=== PATIENT | female | born 1940 | race Caucasian/White ===

== ENCOUNTER → 2020-03-18 13:50 | Outpatient (BNVA) | payer MEDICARE, MEDICAID, SELFPAY | PROVIDERS: PCP Student in an Organized Health Care Education/Training Program; Visit Provider Internal Medicine | DX: J45.991 Cough variant asthma (principal); Z79.899 Other long term (current) drug therapy | CPT/HCPCS: 99212 ==

== ENCOUNTER 2020-05-08 10:16 | Outpatient (REF) | payer MEDICARE, OTHER, SELFPAY ==
--- NOTE | 2020-05-08 10:20 | MM_ITS ---
EXAMINATION: MM SCREENING DIGITAL BREAST TOMOSYNTHESIS, BILATERAL CLINICAL INFORMATION: Screening. Asymptomatic. The lifetime risk of breast cancer based on the Tyrer-Cuzick Model is 1.1%. COMPARISON: Mammography: 10/06/2018 and studies dating back to 03/17/2012. TECHNIQUE: Digital breast tomosynthesis is performed in both the craniocaudal and mediolateral oblique views along with computer-aided detection (CAD). Synthesized 2D images are generated from the tomosynthesis. FINDINGS: The breasts are extremely dense, which lowers the sensitivity of mammography (ACR BI-RADS breast composition Category d). No new abnormal dominant mass is appreciated. There is multiplicity bilaterality of calcifications. There is a question of a new grouping of calcifications about the deep lateral aspect of the right breast for which spot magnification films are recommended. Radiology staff will contact patient to obtain this study. MM/MM tomosynthesis screening BI IMPRESSION: Right breast calcifications; further evaluation as described. ASSESSMENT: BI-RADS 0: Incomplete - Need Additional Imaging Evaluation RECOMMENDATION: 1. Additional views of the right breast. 2. Targeted ultrasound if warranted after review of the additional views. 3. Radiology department staff will contact the patient for additional imaging. This patient's information was entered into a reminder system with a target due date for their next mammogram.
== END 2020-05-08 10:17 | disposition home or self-care (01) ==
LOC: HO.MAMMO 10:16
PROVIDERS: PCP Student in an Organized Health Care Education/Training Program; Visit Provider Student in an Organized Health Care Education/Training Program
DX: Z12.31 Encounter for screening mammogram for malignant neoplasm of breast (principal)
CPT/HCPCS: 77063; 77067

== ENCOUNTER → 2020-05-22 10:04 | Outpatient (BNVA) | payer MEDICARE, MEDICAID, OTHER, SELFPAY | PROVIDERS: PCP Student in an Organized Health Care Education/Training Program; Visit Provider Internal Medicine | DX: R05 Cough (principal); J45.909 Unspecified asthma, uncomplicated | CPT/HCPCS: 99212 ==

== ENCOUNTER 2020-06-07 08:51 | Outpatient (REF) | payer MEDICARE, MEDICAID, SELFPAY ==
--- NOTE | ~2020-06-07 | MM_ITS ---
EXAMINATION: MM DIAGNOSTIC DIGITAL MAMMOGRAPHY, RIGHT CLINICAL INFORMATION: Calcifications upper outer aspect COMPARISON: Mammography: May 08, 2020 and studies dating back to April 11, 2013 TECHNIQUE: Digital mammography is performed in the following views: Spot magnification craniocaudal and 90 degree mediolateral views FINDINGS: The breasts are heterogeneously dense, which may obscure small masses (ACR BI-RADS breast composition Category c). There are a few grouped and scattered calcifications within the upper outer aspect of the right breast which are likely vascular in nature. 6 month follow-up study is recommended. Results are discussed with the patient at time of visit. MM/MM added views RT IMPRESSION: Probably benign calcifications upper outer aspect of the right breast. ASSESSMENT: BI-RADS 3: Probably Benign RECOMMENDATION: Diagnostic mammography in 6 months. This patient's information was entered into a reminder system with a target due date for their next mammogram.
== END 2020-06-07 08:52 | disposition home or self-care (01) ==
LOC: HO.MAMMO 08:51
PROVIDERS: Visit Provider Student in an Organized Health Care Education/Training Program
DX: R92.2 Inconclusive mammogram (principal)
CPT/HCPCS: 77065

== ENCOUNTER → 2020-11-11 09:38 | Outpatient (BNVA) | payer MEDICARE, MEDICAID, SELFPAY | PROVIDERS: PCP Student in an Organized Health Care Education/Training Program; Visit Provider Internal Medicine | DX: J30.9 Allergic rhinitis, unspecified (principal); J45.909 Unspecified asthma, uncomplicated; R05 Cough | CPT/HCPCS: 99212 ==

== ENCOUNTER 2020-12-05 12:25 | Outpatient (REF) | payer MEDICARE, OTHER, SELFPAY ==
--- NOTE | ~2020-12-05 | MM_ITS ---
EXAMINATION: MM DIAGNOSTIC DIGITAL BREAST TOMOSYNTHESIS, RIGHT CLINICAL INFORMATION: Short interval six-month follow-up probable benign calcifications posterior upper outer right breast. The lifetime risk of breast cancer based on the Tyrer-Cuzick Model is 2%. COMPARISON: Mammography: 06/07/2020, 05/08/2020 (BI-RADS 0), 10/06/2018, 08/06/2017 TECHNIQUE: Digital breast tomosynthesis is performed in both the craniocaudal and mediolateral oblique views along with computer-aided detection (CAD). Synthesized 2D images are generated from the tomosynthesis. Additional magnification CC and magnification ML views are obtained. FINDINGS: The breasts are heterogeneously dense, which may obscure small masses (ACR BI-RADS breast composition Category c). Parenchymal pattern is similar to prior studies. There is no developing density or interval mass or architectural abnormality. Scattered coarse and some punctate isolated calcifications are again seen central breast. Additional views upper-outer quadrant show some scattered fine punctate calcifications similar to prior diagnostic exam. Calcifications will be reassessed again at next bilateral annual mammography, due in 6 months. Results are provided to the patient at time of visit by the technologist. MM/MM tomosynthesis diagnostic RT IMPRESSION: There are no significant changes from prior diagnostic exam. ASSESSMENT: BI-RADS 3: Probably Benign RECOMMENDATION: Diagnostic mammography at time of annual bilateral exam, due in 6 months. This patient's information was entered into a reminder system with a target due date for their next mammogram.
== END 2020-12-05 12:26 | disposition home or self-care (01) ==
LOC: HO.MAMMO 12:25
PROVIDERS: PCP Student in an Organized Health Care Education/Training Program; Visit Provider Student in an Organized Health Care Education/Training Program
DX: R92.1 Mammographic calcification found on diagnostic imaging of breast (principal)
CPT/HCPCS: 77061; 77065

== ENCOUNTER → 2021-02-13 14:29 | Outpatient (BNVA) | payer MEDICARE, OTHER, SELFPAY | PROVIDERS: PCP Student in an Organized Health Care Education/Training Program; Visit Provider Internal Medicine | DX: J45.909 Unspecified asthma, uncomplicated (principal); J30.9 Allergic rhinitis, unspecified; R05.9 Cough, unspecified | CPT/HCPCS: 99212 ==

== ENCOUNTER 2021-06-11 12:10 | Outpatient (REF) | payer MEDICARE, OTHER, SELFPAY ==
--- NOTE | ~2021-06-11 | MM_ITS ---
EXAMINATION: MM DIAGNOSTIC DIGITAL BREAST TOMOSYNTHESIS, BILATERAL CLINICAL INFORMATION: Due for yearly. Also follow-up probable benign calcifications right breast. The lifetime risk of breast cancer based on the Tyrer-Cuzick Model is 2%. COMPARISON: Mammography: 12/05/2020, 06/07/2020, 05/08/2020 (BI-RADS 0), 10/06/2018, 08/06/2017, 07/03/2016. TECHNIQUE: Digital breast tomosynthesis is performed in both the craniocaudal and mediolateral oblique views along with computer-aided detection (CAD). Synthesized 2D images are generated from the tomosynthesis. Additional views are obtained: Magnification right CC, magnification right ML x2, spot left CC x2. FINDINGS: The breasts are heterogeneously dense, which may obscure small masses (ACR BI-RADS breast composition Category c). There is fibronodular parenchymal pattern similar to prior studies. There is no developing density or interval mass or architectural abnormality. The axilla and skin contours are unremarkable. Right breast calcifications for follow-up mid outer quadrant on CC view are only a few and without grouping or pleomorphic types. It may be vascular and remaining stable. There are other fine vascular calcifications again seen on CC view. No interval suspicious changes. Right breast calcifications will be reassessed again at next annual bilateral mammography in 212 months to conclude long-term surveillance. Results are provided to the patient at time of visit by the technologist. MM/MM tomosynthesis diagnostic BI IMPRESSION: No mammographic evidence of malignancy. Probable benign calcifications right breast, stable. ASSESSMENT: BI-RADS 3: Probably Benign RECOMMENDATION: Diagnostic mammography at time of next annual exam, due in 12 months. This patient's information was entered into a reminder system with a target due date for their next mammogram.
== END 2021-06-11 12:11 | disposition home or self-care (01) ==
LOC: HO.MAMMO 12:10
PROVIDERS: Visit Provider Student in an Organized Health Care Education/Training Program
DX: R92.1 Mammographic calcification found on diagnostic imaging of breast (principal)
CPT/HCPCS: 77062; 77066

== ENCOUNTER → 2021-09-18 10:33 | Outpatient (BNVA) | payer MEDICARE, OTHER, SELFPAY | PROVIDERS: PCP Student in an Organized Health Care Education/Training Program; Visit Provider Internal Medicine | DX: J45.909 Unspecified asthma, uncomplicated (principal); R05.9 Cough, unspecified | CPT/HCPCS: 99212 ==

== ENCOUNTER 2021-11-04 09:17 | Outpatient (REF) | payer MEDICARE, MEDICAID, SELFPAY ==
--- NOTE | ~2021-11-04 | XR_ITS ---
EXAMINATION: XR LUMBOSACRAL SPINE CLINICAL INFORMATION: Low back pain and left-sided sciatica COMPARISON: Previous x-ray most recent October 2016 TECHNIQUE: Three views of the lumbosacral spine. FINDINGS: There is a 5 mm anterior subluxation of L4 with respect L5. This is new or increased from 2017 exam. Bone alignment is otherwise normal. No fracture or dislocation is seen. There is multilevel degenerative spondylosis and degenerative disc disease. There is lower lumbar spine facet arthritis. There is evidence of atherosclerotic disease. XR/XR lumbar spine 2-3V IMPRESSION: 5 mm anterior subluxation of L4 with respect L5 new or increased from 2017 exam. Multilevel degenerative disc disease, spondylosis and lower lumbar spine facet arthritis.
== END 2021-11-04 09:18 | disposition home or self-care (01) ==
LOC: HO.XRAY 09:17
PROVIDERS: Absent Provider Student in an Organized Health Care Education/Training Program; PCP Student in an Organized Health Care Education/Training Program; Visit Provider Internal Medicine
DX: M54.42 Lumbago with sciatica, left side (principal)
CPT/HCPCS: 72100

== ENCOUNTER 2022-06-12 11:56 | Outpatient (REF) | payer MEDICARE, MEDICAID, SELFPAY ==
--- NOTE | ~2022-06-12 | MM_ITS ---
EXAMINATION: MM DIAGNOSTIC DIGITAL BREAST TOMOSYNTHESIS, BILATERAL CLINICAL INFORMATION: Yearly screening study of the left breast in one year follow up right breast calcifications. The lifetime risk of breast cancer based on the Tyrer-Cuzick Model is 1.7%. COMPARISON: Mammography: June 11, 2021 and studies dating back to June 28, 2015 TECHNIQUE: Digital breast tomosynthesis is performed in both the craniocaudal and mediolateral oblique views along with computer-aided detection (CAD). Synthesized 2D images are generated from the tomosynthesis. Additional spot magnification views in craniocaudal and 90 degree mediolateral views of the right breast performed. FINDINGS: The breasts are extremely dense, which lowers the sensitivity of mammography (ACR BI-RADS breast composition Category d). There are no new significant masses, abnormal calcifications, or other abnormalities. Stable calcifications are seen bilaterally. Results are provided to the patient at time of visit by the technologist. MM/MM tomosynthesis diagnostic BI IMPRESSION: There are no significant changes from prior study. ASSESSMENT: BI-RADS 2: Benign RECOMMENDATION: Routine annual mammography screening. This patient's information was entered into a reminder system with a target due date for their next mammogram.
== END 2022-06-12 11:57 | disposition home or self-care (01) ==
LOC: HO.MAMMO 11:56
PROVIDERS: Visit Provider Student in an Organized Health Care Education/Training Program
DX: R92.1 Mammographic calcification found on diagnostic imaging of breast (principal)
CPT/HCPCS: 77062; 77066

== ENCOUNTER → 2022-09-29 10:24 | Outpatient (BNVA) | payer MEDICARE, MEDICAID, SELFPAY | PROVIDERS: PCP Student in an Organized Health Care Education/Training Program; Visit Provider Internal Medicine | DX: J45.909 Unspecified asthma, uncomplicated (principal); J30.9 Allergic rhinitis, unspecified | CPT/HCPCS: 99212 ==

== ENCOUNTER 2023-01-21 08:44 | Outpatient (REF) | payer MEDICARE, MEDICAID, SELFPAY ==
[2023-01-21 15:28] LABS: Alanine Aminotransferase 14 U/L (0-31); Albumin Level 4.3 g/dL (3.5-5.0); Anion Gap 14 (12-20); Aspartate Amino Transferase 21 U/L (5-31); Bilirubin Direct 0.2 mg/dL (0.0-0.5); Bilirubin Total 0.5 mg/dL (0.0-1.0); Blood Urea Nitrogen 24 mg/dL (9-16); Calcium 9.8 mg/dL (8.4-10.2); Carbon Dioxide 27 mmol/L (22-29); Chloride 102 mmol/L (96-108); Cholesterol 187 mg/dL (<200); Estimated Glomerular Filt Rate 52; Glucose Fasting 104 mg/dL (60-99); HDL Cholesterol 44 mg/dL (>40); LDL Cholesterol Calculated 107 mg/dL (<100); Potassium 3.5 mmol/L (3.3-5.1); Sodium 139 mmol/L (135-145); Thyroid Stimulating Hormone 2.55 uIU/mL (0.32-4.0); Total Protein 8.4 g/dL (6.5-8.0); Triglycerides 184 mg/dL (<150)
[2023-01-21 15:49] LABS: Alkaline Phosphatase 99 U/L (39-117)
== END 2023-01-21 08:45 | disposition home or self-care (01) ==
LOC: HO.CHCLDS 08:44
PROVIDERS: Visit Provider Student in an Organized Health Care Education/Training Program
DX: E11.9 Type 2 diabetes mellitus without complications (principal)
CPT/HCPCS: 36415; 80048; 80061; 80076; 84443

== ENCOUNTER 2023-06-18 10:15 | Outpatient (REF) | payer MEDICARE, MEDICAID, SELFPAY | END 2023-06-18 10:16 | disposition home or self-care (01) | LOC: HO.MAMMO 10:15 | PROVIDERS: PCP Student in an Organized Health Care Education/Training Program; Visit Provider Student in an Organized Health Care Education/Training Program | DX: Z12.31 Encounter for screening mammogram for malignant neoplasm of breast (principal) | CPT/HCPCS: 77063; 77067 ==

== ENCOUNTER → 2023-06-18 10:45 | Outpatient (BNV) | payer MEDICARE, MEDICAID, SELFPAY | PROVIDERS: PCP Student in an Organized Health Care Education/Training Program; Visit Provider Radiology Diagnostic Radiology | DX: Z12.31 Encounter for screening mammogram for malignant neoplasm of breast (principal) | CPT/HCPCS: 77063; 77067 ==

== ENCOUNTER 2023-09-21 10:22 | Outpatient (AMB) | payer MEDICARE, MEDICAID, SELFPAY ==
[2023-09-21 10:27] VITALS: BP 122/64; PULSE 72; O2SAT 97; BMI 27.8
--- NOTE | 2023-09-21 10:27 | A.OFFVIS_ITS ---
Vital Signs 09/21/23 10:27 Height 5 ft 2 in Weight 152 lb 1.903 oz BMI 27.8 BP 122/64 Blood Pressure Location Lt brachial Position Sitting Pulse 72 Pulse Source Pulse Oximeter Pulse Oximetry (%) 97 Oxygen Delivery Method Room Air Intake Visit Reasons: COPD Intake Note: pt is here for follow up and states her breathing is good, no need for inhalers and she is feeling pretty good. Allergies Penicillins [PENICILLINS] Allergy (Intermediate, Verified 09/21/23 10:46) RASH Medication List - Last Reconciled 09/21/23 by David Reyes MD amlodipine 10 mg PO QAM aspirin 1 tab PO QAM blood sugar diagnostic As directed cetirizine 10 mg PO BEDTIME diclofenac sodium 1% topical flu vacc [id number](65yr up)-PF mL IM fluticasone propionate 50 mcg/actuation intranasal hydrochlorothiazide 25 mg PO DAILY icosapent ethyl (Vascepa) 2 grams PO BID lancets As directed levothyroxine 50 mcg PO DAILY montelukast 10 mg PO QPM rosuvastatin 10 mg PO BEDTIME sertraline 100 mg PO DAILY Ventolin HFA 90 mcg/actuation (albuterol sulfate) 2 puffs inhalation Q4-6H PRN NS zolpidem 5 mg PO BEDTIME Do you need a note to return to daycare/school/sports/work: No HPI HPI COPD: Details: LELA IS 83 YEARS OLD FEMALE COMING AFTER 1 YEAR FOR FOLLOW-UP. SHE HAS ALLERGIC RHINITIS WHICH IS AROUND THE YEAR BUT MOSTLY CONTROLLED AND FLARES UP WHEN THERE IS CHANGE IN THE WEATHER. SHE ALSO HAS VERY MILD INTERMITTENT BRONCHIAL ASTHMA BUT HAS HARDLY NEEDED TO USE THE ALBUTEROL DURING PAST 1 YEAR. SHE LIVES WITH HER FIANCE WHO IS 89 YEARS OLD BUT HEALTHY AND ACTIVE. SHE STILL DOES HER HOUSEWORK HERSELF. [facility] Medical History Cough Asthma Allergic rhinitis Social History Patient Tobacco Use Status: Former Tobacco user Years Smoked: 25 years, quit 41yo Review of Systems Const All systems reviewed & are unremarkable except as noted in HPI and below Eyes Reports no additional complaints ENT Reports nasal congestion and Reports nasal discharge (Much less than before) Card Denies chest pain, Denies irregular heart rhythm and Denies leg edema Resp Reports cough (Only mild and intermittent, ) and Denies wheezing GI Reports no additional complaints and Reports heartburn ( CONTROLLED WITH MED) Reports no additional complaints Musc Reports no additional complaints Skin/Breast Reports system reviewed and no additional complaints, except as documented Neuro Reports no additional complaints Psych Reports depression (CONTROLLED WITH MED) Aller/Immun Denies wheezing Physical Exam Vital Signs: Last Vital Signs Pulse 72 09/21/23 10:27 BP 122/64 09/21/23 10:27 Pulse Ox 97 09/21/23 10:27 Oxygen Delivery Method Room Air 09/21/23 10:27 BMI result Body Mass Index 27.8 Const General: comfortable, no acute distress, alert and awake Orientation/consciousness: patient oriented x3 HEENT Head: Yes normal to inspection General nose exam: No nasal polyps present and No nasal discharge present Face and sinus: Yes sinuses nontender Mouth: oropharynx normal Throat: Yes posterior oropharynx normal Eyes General: appearance normal, both eyes and all related structures Neck Neck: Yes normal visual inspection, Yes no lymphadenopathy, Yes trachea midline and Yes no JVD Thyroid: Thyroid normal Chest Chest palpation & inspection: normal inspection of the chest, normal palpation of entire chest wall and no tenderness Resp Other: PERCUSSION NOTE IS RESONANT. BREATH SOUNDS ARE EQUAL ON BOTH SIDES . NO WHEEZES OR RHONCHI ARE HEARD. Cardio Palpation: normal PMI Rate: regular rate Rhythm: regular rhythm Heart sounds: no gallops and no murmurs GI Palpation (GI): Soft to palpation, nontender, No hepatosplenomegaly present and no masses Auscultation: normal bowel sounds Back/Spine/Pelvis Thoracic/Lumbar Spine: thoracic and lumbar spine normal to inspection Skin General skin exam: no rashes or lesions noted Neuro General: patient oriented x3 and no focal motor deficits Cranial nerves: Yes CN's II-XII intact bilaterally Extrem General: Yes normal to inspection, Yes no clubbing, cyanosis or edema and Yes no calf tenderness Psych Appearance: grossly normal Speech and movement: Normal speech and movement present Assessment & Plan Assessment & Plan (1) Allergic rhinitis: Comment: CHRONIC COUGH , MAINLY SEC TO ALL RHINITIS , WELL CONTROLLED AT THIS TIME. Code(s): J30.9 - Allergic rhinitis, unspecified Category: Medical Plan: CONT. SINGLAIR 10 MG DAILY FLONASE 2 SPRAYS IN EACH NARE DAILY ONLY PRN ZYRTEC 10 MG/day but may use only prn . (2) Asthma: Comment: Cough is an ASTHMA VARIANT , AND HAS REMAINED WELL CONTROLLED. SHE HAS NOT REQUIRED TO USE THE INHALER MUCH. Code(s): J45.909 - Unspecified asthma, uncomplicated Category: Medical Plan: ALBUTEROL HFA 2 PUFFS Q 6 HOURS ONLY P.R.N. Medications: Changed From montelukast 10 mg PO QPM 30 tabs 3RF J30.9 - Allergic rhinitis, unspecified, J45.909 - Unspecified asthma, uncomplicated To montelukast 10 mg PO QPM 90 days 90 tabs 3RF ALLERGIC rHINITIS /ASTHMA J30.9 - Allergic rhinitis, unspecified, J45.909 - Unspecified asthma, uncomplicated Coding Level of Care Code Est Pt Level 3 (29935) Diagnoses Allergic rhinitis J30.9 Asthma J45.909
== END 2023-09-21 13:00 | disposition home or self-care (01) ==
PROVIDERS: PCP Student in an Organized Health Care Education/Training Program; Visit Provider Internal Medicine
DX: J30.9 Allergic rhinitis, unspecified (principal); J45.909 Unspecified asthma, uncomplicated
CPT/HCPCS: 99213

== ENCOUNTER → 2023-09-21 10:22 | Outpatient (BNVA) | payer MEDICARE, MEDICAID, SELFPAY | PROVIDERS: PCP Student in an Organized Health Care Education/Training Program; Visit Provider Internal Medicine | DX: I12.9 Hypertensive chronic kidney disease with stage 1 through stage 4 chronic kidney disease, or unspecified chronic kidney disease (principal); N18.30 Chronic kidney disease, stage 3 unspecified; J45.909 Unspecified asthma, uncomplicated | CPT/HCPCS: 99212 ==

== ENCOUNTER 2023-09-21 11:39 | Outpatient (AMB) | payer MEDICARE, MEDICAID, SELFPAY ==
[2023-09-21 11:48] VITALS: BP 124/52; PULSE 93; O2SAT 94; BMI 28.0
--- NOTE | 2023-09-21 11:48 | HO.NEPHOV_ITS ---
Vital Signs 09/21/23 11:48 Height 5 ft 2 in Weight 153 lb BMI 28.0 BP 124/52 L Blood Pressure Location Rt brachial Position Sitting Pulse 93 Pulse Source Pulse Oximeter Pulse Oximetry (%) 94 Oxygen Delivery Method Room Air Intake Visit Reasons: [facility] [place] [employer] Professor Required: No Accompanied by: Spouse Allergies Penicillins [PENICILLINS] Allergy (Intermediate, Verified 09/21/23 11:50) RASH HPI Comments Details: Margaret is a pleasant 83-year-old woman with a history of longstanding hypertension and chronic kidney disease. She is here for semiannual follow-up. From renal standpoint she has no specific complaints. No shortness of breath nausea vomiting. No urinary symptoms. She is compliant with her medications. [facility] Medical History Cough Asthma Allergic rhinitis Social History Patient Tobacco Use Status: Former Tobacco user Years Smoked: 25 years, quit 41yo Physical Exam Vital Signs: Last Vital Signs Pulse 93 09/21/23 11:48 BP 124/52 L 09/21/23 11:48 Pulse Ox 94 09/21/23 11:48 Oxygen Delivery Method Room Air 09/21/23 11:48 BMI result Body Mass Index 28.0 Awake. Comfortable. Neck is supple. Mucosa moist. Lungs bilateral scattered rhonchi. Heart S1-S2 heard no gallop. Abdomen soft. Extremities no edema. No involuntary movements. No myoclonus. Results Reviewed Nephrology Results: Sodium 139 mmol/L (135-145) 01/21/23 Potassium 3.5 mmol/L (3.3-5.1) 01/21/23 Chloride 102 mmol/L (96-108) 01/21/23 Carbon Dioxide 27 mmol/L (22-29) 01/21/23 BUN 24 mg/dL (9-16) H 01/21/23 Creatinine 1.02 mg/dL (0.5-1.4) 01/21/23 Calcium 9.8 mg/dL (8.4-10.2) 01/21/23 Assessment & Plan Assessment & Plan (1) HTN (hypertension): Code(s): I10 - Essential (primary) hypertension Category: Medical (2) CKD (chronic kidney disease): Code(s): N18.9 - Chronic kidney disease, unspecified Category: Medical Plan Mary is 83-year-old woman with a history of mild CKD in a setting of long standing hypertension. 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 Overall renal function has been stable. Last lab work was more than 6 months ago. Ordered a set of renal panel. Blood pressure well controlled therefore I am not made any changes in her medications She should stay on low-sodium diet. Continue to avoid nephrotoxic agents including NSAIDs. We will continue screen for anemia and secondary hyperparathyroidism. All questions were answered Orders: Orders Complete Blood Count Auto Diff 2 Weeks I10 - Essential (primary) hypertension, N18.30 - Chronic kidney disease, stage 3 unspecified Total Protein Urine Random 2 Weeks I10 - Essential (primary) hypertension Comprehensive Met. Panel 2 Weeks I10 - Essential (primary) hypertension, N18.9 - Chronic kidney disease, unspecified UA and rflx microscopic 2 Weeks I10 - Essential (primary) hypertension Creatinine Urine 2 Weeks I10 - Essential (primary) hypertension, N05.9 - Unspecified nephritic syndrome with unspecified morphologic changes Coding Level of Care Code Est Pt Level 4 (79986) Diagnoses HTN (hypertension) I10 CKD (chronic kidney disease) N18.9
== END 2023-09-21 12:12 | disposition home or self-care (01) ==
PROVIDERS: PCP Student in an Organized Health Care Education/Training Program; Visit Provider Internal Medicine Hypertension Specialist
DX: I12.9 Hypertensive chronic kidney disease with stage 1 through stage 4 chronic kidney disease, or unspecified chronic kidney disease (principal); N18.9 Chronic kidney disease, unspecified
CPT/HCPCS: 99214

== ENCOUNTER 2023-09-28 09:46 | Outpatient (REF) | payer MEDICARE, MEDICAID, SELFPAY ==
[2023-09-28 14:42] LABS: MANUAL DIFF FLAG NO
[2023-09-28 15:01] LABS: Basophils Absolute Auto 0.1 X10*3/uL (0.0-0.2); Basophils Percent Auto 1.1 % (0-2); Eosinophils Absolute Auto 1.1 X10*3/uL (0.0-0.4); Eosinophils Percent Auto 13.2 % (0-4); Hematocrit 36.1 % (37.0-47.0); Hemoglobin 11.7 g/dl (12.0-16.0); Imm Gran Abs Auto 0.02 X10*3/uL (0.00-0.03); Imm Gran Pct Auto 0.2 % (0.0-0.4); Lymphocytes Absolute Auto 2.3 X10*3/uL (1.2-4.9); Lymphocytes Percent Auto 27.8 % (20-40); Mean Corpuscular HGB Conc 32.4 g/dl (31.0-35.0); Mean Corpuscular Hemoglobin 30.6 pg (27.0-33.0); Mean Corpuscular Volume 94.5 fL (80.0-98.0); Mean Platelet Volume 8.5 fL (9.4-12.3); Monocytes Absolute Auto 0.7 X10*3/uL (0.1-1.2); Neutrophils Percent Auto 48.7 % (45-73); Platelet Count 205 X10*3/uL (160-400); Red Blood Count 3.82 X10*6/uL (4.20-5.50); Red Cell Distribution Width 12.8 % (11.0-16.0); White Blood Count 8.2 X10*3/uL (4.8-10.8)
[2023-09-28 15:22] LABS: Alanine Aminotransferase 16 U/L (0-31); Albumin Level 4.3 g/dL (3.5-5.0); Alkaline Phosphatase 102 U/L (39-117); Anion Gap 14 (12-20); Aspartate Amino Transferase 25 U/L (5-31); Bilirubin Direct 0.2 mg/dL (0.0-0.5); Bilirubin Total 0.4 mg/dL (0.0-1.0); Blood Urea Nitrogen 30 mg/dL (9-16); Calcium 9.6 mg/dL (8.4-10.2); Carbon Dioxide 28 mmol/L (22-29); Chloride 98 mmol/L (96-108); Cholesterol 182 mg/dL (<200); Estimated Glomerular Filt Rate 49; Glucose Random 101 mg/dL (60-115); HDL Cholesterol 45 mg/dL (>40); LDL Cholesterol Calculated 101 mg/dL (<100); Potassium 3.4 mmol/L (3.3-5.1); Sodium 137 mmol/L (135-145); Total Protein 8.3 g/dL (6.5-8.0); Triglycerides 180 mg/dL (<150)
[2023-09-28 15:32] LABS: Appearance Urine Clear; Color Urine Yellow; Glucose Urine UA Negative (Negative); Leukocyte Esterase Urine Negative (Negative); Nitrite Urine Negative (Negative); PH 7.5 (5.0-9.0); UMIC TRIGGER UA YES; Urine Blood Negative (Negative); Urine Ketones Negative (Negative); Urine Protein 30 (1+) mg/dL (Neg-Trace)
[2023-09-28 15:39] LABS: Thyroid Stimulating Hormone 2.53 uIU/mL (0.32-4.0)
[2023-09-28 15:47] LABS: Creatinine Urine 54.46 mg/dL; Total Protein Urine Random 29 mg/dL (<12)
[2023-09-28 15:58] LABS: Bacteria Urine None Seen (None Seen); Hyaline Casts Urine 0-2 /LPF (0-2); RBC Urine 0-2 /HPF (0-2); Squamous Epithelial Cell Urine 0-2 /HPF (0-2); WBC Urine 0-5 /HPF (0-5)
== END 2023-09-28 09:47 | disposition home or self-care (01) ==
LOC: HO.CHCLDS 09:46
PROVIDERS: PCP Student in an Organized Health Care Education/Training Program; Referring Provider Internal Medicine Hypertension Specialist; Visit Provider Student in an Organized Health Care Education/Training Program
DX: E03.9 Hypothyroidism, unspecified (principal); E11.22 Type 2 diabetes mellitus with diabetic chronic kidney disease; I12.9 Hypertensive chronic kidney disease with stage 1 through stage 4 chronic kidney disease, or unspecified chronic kidney disease; N18.30 Chronic kidney disease, stage 3 unspecified; N05.9 Unspecified nephritic syndrome with unspecified morphologic changes
CPT/HCPCS: 36415; 80053; 80061; 80076; 81001; 81003; 82248; 82570; 84156; 84443; 85025

== ENCOUNTER 2024-02-29 09:15 | Outpatient (AMB) | payer MEDICARE, MEDICAID, SELFPAY ==
[2024-02-29 09:19] VITALS: BP 138/64; PULSE 84; O2SAT 96; BMI 27.4
--- NOTE | 2024-02-29 09:19 | HO.NEPHOV_ITS ---
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: No Accompanied by: Spouse Allergies Penicillins [PENICILLINS] Allergy (Intermediate, Verified 09/21/23 11:50) RASH Medication List - Last Reconciled 02/29/24 by Tristian French MD amlodipine 10 mg PO QAM aspirin 1 tab PO QAM blood sugar diagnostic As directed calcium citrate-vitamin D3 125-62.5 mg-unit tabs PO cetirizine 10 mg PO BEDTIME duloxetine 20 mg PO DAILY fluticasone propionate 50 mcg/actuation intranasal hydrochlorothiazide 25 mg PO DAILY icosapent ethyl (Vascepa) 2 grams PO BID lancets As directed levothyroxine 50 mcg PO DAILY montelukast 10 mg PO QPM 90 days rosuvastatin 10 mg PO BEDTIME sertraline 100 mg PO DAILY vitamins A,C,R-yyeo-xhqylq 4,296 mcg-226 mg-90 mg (PreserVision AREDS) 1 cap PO BID zolpidem 5 mg PO BEDTIME HPI Comments Details: Margaret is a pleasant 83-year-old woman with a history of longstanding hypertension and chronic kidney disease. She is here for semiannual follow-up. From renal standpoint she has no specific complaints. No shortness of breath nausea vomiting. No urinary symptoms. She is compliant with her medications. 02/29/24 Overall doing OK Now with macular dedeneration [facility] Medical History Cough Asthma Allergic rhinitis Social History Patient Tobacco Use Status: Former Tobacco user Years Smoked: 25 years, quit 41yo Physical Exam Vital Signs: Last Vital Signs Pulse 84 02/29/24 09:19 BP 138/64 02/29/24 09:19 Pulse Ox 96 02/29/24 09:19 Oxygen Delivery Method Room Air 02/29/24 09:19 BMI result Body Mass Index 27.4 Const General: comfortable; No acute distress Orientation/consciousness: patient oriented x3 Eyes General: appearance normal, both eyes and all related structures Visual Lundy: normal visual lundy by confrontation Neck Neck: Yes supple and Yes no JVD Resp Effort & Inspection: normal respiratory effort and respiratory effort not decreased Auscultation: rhonchi Cardio Palpation: no palpable S3 and no palpable S4 Heart sounds: no rubs GI Inspection: Yes normal to inspection Palpation (GI): Soft to palpation Percussion: Yes normal to percussion Auscultation: normal bowel sounds General: Yes no CVA tenderness Back/Spine/Pelvis Back: no CVA tenderness Skin General skin exam: no petechiae and no purpura Neuro General: patient oriented x3 and no focal motor deficits Extrem General: No clubbing and No edema Results Reviewed Nephrology Results: Hgb 11.7 g/dl (12.0-16.0) L 09/28/23 WBC 8.2 X10*3/uL (4.8-10.8) 09/28/23 Plt Count 205 X10*3/uL (160-400) 09/28/23 Sodium 137 mmol/L (135-145) 09/28/23 Potassium 3.4 mmol/L (3.3-5.1) 09/28/23 Chloride 98 mmol/L (96-108) 09/28/23 Carbon Dioxide 28 mmol/L (22-29) 09/28/23 BUN 30 mg/dL (9-16) H 09/28/23 Creatinine 1.08 mg/dL (0.5-1.4) 09/28/23 Calcium 9.6 mg/dL (8.4-10.2) 09/28/23 Urine Protein 30 (1+) mg/dL (Neg-Trace) H 09/28/23 Urine Creatinine 54.46 mg/dL 09/28/23 Assessment & Plan Assessment & Plan (1) HTN (hypertension): Code(s): I10 - Essential (primary) hypertension Category: Medical (2) CKD (chronic kidney disease): Code(s): N18.9 - Chronic kidney disease, unspecified Category: Medical Plan Mary is 83-year-old woman with a history of mild CKD in a setting of longstanding hypertension. 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 Overall renal function has been stable. Ordered a set of renal panel. Blood pressure well controlled therefore I am not made any changes in her medications She should stay on low-sodium diet. Continue to avoid nephrotoxic agents including NSAIDs. We will continue screen for anemia and secondary hyperparathyroidism. All questions were answered Orders: Orders Basic Metabolic Panel 10 Days N18.9 - Chronic kidney disease, unspecified Parathyroid Hormone Related Pr 10 Days N18.9 - Chronic kidney disease, unspecified Complete Blood Count no Diff 10 Days N18.9 - Chronic kidney disease, unspecified Coding Level of Care Code Est Pt Level 4 (38726) Diagnoses HTN (hypertension) I10 CKD (chronic kidney disease) N18.9
== END 2024-02-29 09:38 | disposition home or self-care (01) ==
LOC: HO.HKA 09:15
PROVIDERS: PCP Student in an Organized Health Care Education/Training Program; Visit Provider Internal Medicine Hypertension Specialist
DX: I12.9 Hypertensive chronic kidney disease with stage 1 through stage 4 chronic kidney disease, or unspecified chronic kidney disease (principal); N18.2 Chronic kidney disease, stage 2 (mild)
CPT/HCPCS: 99214

== ENCOUNTER → 2024-02-29 09:15 | Outpatient (BNVA) | payer MEDICARE, MEDICAID, SELFPAY | PROVIDERS: PCP Student in an Organized Health Care Education/Training Program; Visit Provider Internal Medicine Hypertension Specialist | DX: I12.9 Hypertensive chronic kidney disease with stage 1 through stage 4 chronic kidney disease, or unspecified chronic kidney disease (principal); N18.9 Chronic kidney disease, unspecified | CPT/HCPCS: 99212 ==

== ENCOUNTER 2024-03-13 10:06 | Outpatient (REF) | payer MEDICARE, MEDICAID, SELFPAY ==
[2024-03-13 14:29] LABS: Estimated Average Glucose 108 mg/dL; Hemoglobin A1C 115.9474 umol/L; Hemoglobin A1c % 5.4 % (<6.0); Total Hemoglobin (HGBA1C) 3245.9527 umol/L
[2024-03-13 14:39] LABS: Alanine Aminotransferase 18 U/L (0-31); Albumin Level 4.1 g/dL (3.5-5.0); Alkaline Phosphatase 136 U/L (39-117); Anion Gap 13 (12-20); Aspartate Amino Transferase 32 U/L (5-31); Bilirubin Direct 0.1 mg/dL (0.0-0.5); Bilirubin Total 0.3 mg/dL (0.0-1.0); Blood Urea Nitrogen 23 mg/dL (9-16); Calcium 10.3 mg/dL (8.4-10.2); Carbon Dioxide 28 mmol/L (22-29); Chloride 100 mmol/L (96-108); Cholesterol 169 mg/dL (<200); Estimated Glomerular Filt Rate 48; Glucose Random 97 mg/dL (60-115); HDL Cholesterol 44 mg/dL (>40); LDL Cholesterol Calculated 91 mg/dL (<100); Potassium 3.4 mmol/L (3.3-5.1); Sodium 138 mmol/L (135-145); Triglycerides 174 mg/dL (<150)
[2024-03-13 14:56] LABS: TSH reflex Free T4 2.45 uIU/mL (0.32-4.0)
== END 2024-03-13 10:07 | disposition home or self-care (01) ==
LOC: HO.CHCLDS 10:06
PROVIDERS: Visit Provider Student in an Organized Health Care Education/Training Program
DX: E11.9 Type 2 diabetes mellitus without complications (principal); I10 Essential (primary) hypertension; E03.9 Hypothyroidism, unspecified
CPT/HCPCS: 36415; 80048; 80061; 80076; 83036; 84443

== ENCOUNTER 2024-03-15 09:24 | Outpatient (REF) | payer MEDICARE, MEDICAID, SELFPAY ==
[2024-03-15 14:33] LABS: Hematocrit 34.9 % (37.0-47.0); Hemoglobin 11.7 g/dl (12.0-16.0); Mean Corpuscular HGB Conc 33.5 g/dl (31.0-35.0); Mean Corpuscular Hemoglobin 31.9 pg (27.0-33.0); Mean Corpuscular Volume 95.1 fL (80.0-98.0); Mean Platelet Volume 8.2 fL (9.4-12.3); Platelet Count 212 X10*3/uL (160-400); Red Blood Count 3.67 X10*6/uL (4.20-5.50); Red Cell Distribution Width 12.7 % (11.0-16.0); White Blood Count 8.3 X10*3/uL (4.8-10.8)
[2024-03-15 14:48] LABS: Anion Gap 13 (12-20); Blood Urea Nitrogen 27 mg/dL (9-16); Carbon Dioxide 29 mmol/L (22-29); Chloride 100 mmol/L (96-108); Estimated Glomerular Filt Rate 49; Glucose Random 111 mg/dL (60-115); Potassium 3.7 mmol/L (3.3-5.1); Sodium 138 mmol/L (135-145)
[2024-03-21 17:48] LABS: Alk.Phos Iso. Macrohepatic 0 % (<=0); Alk.Phos Isoenzymes Bone 48 % (28-66); Alk.Phos Isoenzymes Intest 8 % (1-24); Alk.Phos Isoenzymes Liver 44 % (25-69); Alk.Phos Isoenzymes Placental 0 % (<=0); Alk.Phos Isoenzymes Total 126 U/L (37-153)
== END 2024-03-15 09:25 | disposition home or self-care (01) ==
LOC: HO.CHCLDS 09:24
PROVIDERS: PCP Student in an Organized Health Care Education/Training Program; Referring Provider Internal Medicine Hypertension Specialist; Visit Provider Student in an Organized Health Care Education/Training Program
DX: R74.8 Abnormal levels of other serum enzymes (principal); N18.9 Chronic kidney disease, unspecified
CPT/HCPCS: 36415; 80048; 84080; 85027

== ENCOUNTER 2024-05-12 13:43 | Outpatient (AMB) | payer MEDICARE, MEDICAID, SELFPAY ==
[2024-05-12 13:50] VITALS: BP 151/66; PULSE 89; BMI 27.4
--- NOTE | 2024-05-12 13:50 | MHC.OFFVIS ---
Vital Signs 05/12/24 13:50 Height 5 ft 2 in Weight 149 lb 14.629 oz BMI 27.4 BP 151/66 H Blood Pressure Location Lt brachial Position Sitting Pulse 89 Intake Visit Reasons: elevated alkaline phosphatase level Intake Note: Margaret presents in the office as a new patient for elevated LFTs. CC: She states that her daughter had colon cancer but it does not fun elsewhere in the family. Sometimes she deals with constipation but it is not a concern for her at this time. Hr Coordinator Required: No Allergies Penicillins [PENICILLINS] Allergy (Intermediate, Verified 05/12/24 13:52) RASH HPI Comments Details: 83 y.o F with PMH HTN, CKD, asthma who is referred to our office for isolated value of elevated ALP on 03/13/24. It has since then normalized. Patient here accompanied by her significant other.. Pt herself does not have any abdominal pain, nausea, vomiting, pruritus, fatigue. Initial labs were done as part of a physical. Repeat labs 2 days later showed normalization of alk-phos. However, trend reviewed and alkaline phosphatase has been mildly increasing from the range of 70s to now 120s. [facility] Medical History (Updated 05/12/24 @ 14:00 by Violet Valdez MD) Cough Asthma Allergic rhinitis Surgical History (Updated 05/12/24 @ 13:52 by RAJENDRA Scales) Hx of colonoscopy Family History (Updated 05/12/24 @ 13:53 by RAJENDRA Scales) Daughter Colon cancer Social History Patient Tobacco Use Status: Former Tobacco user Years Smoked: 25 years, quit 41yo Review of Systems Const All systems reviewed & are unremarkable except as noted in HPI and below Physical Exam Vital Signs: Last Vital Signs Pulse 89 05/12/24 13:50 BP 151/66 H 05/12/24 13:50 BMI result Body Mass Index 27.4 No apparent distress Nonicteric Abdomen soft, nondistended Alert and oriented x3, normal gait Assessment & Plan Assessment & Plan (1) Elevated alkaline phosphatase level: Code(s): R74.8 - Abnormal levels of other serum enzymes Category: Medical Plan Given the slow, gradual increase over the last 7 years, suspect could be bone related given her age and CKD. Will fractionate this. We will also get AMA and anti LKM. Plan: -if not liver related, will be discharged back to PCP's care -if hepatic alk-phos, next step will be to obtain ultrasound abdomen to rule out biliary stricture Follow-up contingent on above Orders: Orders Gamma Glutamyl Transpeptidase Today R74.8 - Abnormal levels of other serum enzymes Mitochondrial Antibody Today R74.8 - Abnormal levels of other serum enzymes Alkaline Phosphatase Isoenzyme Today R74.8 - Abnormal levels of other serum enzymes Liver Kidney Microsomal Ab Today R74.8 - Abnormal levels of other serum enzymes Liver Panel Today R74.8 - Abnormal levels of other serum enzymes Coding Level of Care Code New Pt Level 4 (81953) Diagnoses Elevated alkaline phosphatase level R74.8
== END 2024-05-12 14:41 | disposition home or self-care (01) ==
PROVIDERS: PCP Student in an Organized Health Care Education/Training Program; Visit Provider Internal Medicine
DX: R74.8 Abnormal levels of other serum enzymes (principal)
CPT/HCPCS: 99204

== ENCOUNTER 2024-05-12 14:26 | Outpatient (REF) | payer MEDICARE, MEDICAID, SELFPAY ==
[2024-05-12 17:49] LABS: Alanine Aminotransferase 16 U/L (0-31); Albumin Level 4.2 g/dL (3.5-5.0); Aspartate Amino Transferase 27 U/L (5-31); Bilirubin Direct 0.1 mg/dL (0.0-0.5); Bilirubin Total 0.3 mg/dL (0.0-1.0); Gamma Glutamyl Transpeptidase 29 U/L (7-33); Total Protein 8.3 g/dL (6.5-8.0)
[2024-05-12 18:08] LABS: Alkaline Phosphatase 105 U/L (39-117)
[2024-05-16 09:07] LABS: Mitochondrial Antibodies NEGATIVE (NEGATIVE)
[2024-05-17 14:53] LABS: Liver Kidney Microsomal Ab <=20.0 U (<=20.0)
[2024-05-19 11:59] LABS: Alk.Phos Iso. Macrohepatic 0 % (<=0); Alk.Phos Isoenzymes Bone 35 % (28-66); Alk.Phos Isoenzymes Intest 6 % (1-24); Alk.Phos Isoenzymes Liver 59 % (25-69); Alk.Phos Isoenzymes Placental 0 % (<=0); Alk.Phos Isoenzymes Total 97 U/L (37-153)
== END 2024-05-12 14:27 | disposition home or self-care (01) ==
LOC: HO.CHCLDS 14:26
PROVIDERS: Visit Provider Internal Medicine
DX: R74.8 Abnormal levels of other serum enzymes (principal); I12.9 Hypertensive chronic kidney disease with stage 1 through stage 4 chronic kidney disease, or unspecified chronic kidney disease; N18.9 Chronic kidney disease, unspecified
CPT/HCPCS: 36415; 80076; 82977; 84080; 86376; 86381; 99202

== ENCOUNTER 2024-06-23 11:27 | Outpatient (REF) | payer MEDICARE, MEDICAID, SELFPAY ==
--- OUTSIDE RECORDS SUMMARY | 2024-06-23 12:34 | XMS_ITS | Encounter Summary ---
Author Organization [employer] Address [address] [facility] 7t [place] [address] Care Team Providers Care Admissions Nurse Name Role Phone Dedra Arzola MD Primary Care Provider [phone] Reason for Visit * Reason Onset Date Comments Med Refill 06/02/2023 Encounter Details Date Type Department Care Team ([facility] Contact Info) Description 06/02/2023 Telephone [facility] CHC MED & PEDS [address] [place], [place] [phone] Dedra Arzola MD [address] [place] [address] Med Refill Social History Tobacco Use Types Packs/Day Years Used Date Smoking Tobacco: Never Passive Smoke Exposure: Never Smokeless Tobacco: Never Alcohol Use Standard Drinks/Week Comments Never 0 (1 standard drink = 0.6 oz pur e alcohol) Depression Answer Date Recorded Patient Health Questionnaire-9 Score 4 01/20/2023 Housing Stability Answer Date Recorded What is your housing situation today? I have hugo lucas 03/08/[address] you li ve. Do you have problems with any of the following? None of the above 03/08/2023 Food Insecurity Answer Date Recorded Within the past 12 months, y ou worried that your food would run out before you got money to buy more: Never True 03/08/2023 Within the past 12 months,th e food you bought just didn't last and you didn't have enough money to get more: Never True 10/2022 Transportation Answer Date Recorded In the past 12 months, has l ack of transportation kept you from medical appts, meetings, work or from getting things needed for daily living? No 03/08/2023 Utilities Answer Date Recorded In the past 12 months, has t he electric, gas, oil or water company threatened to shut off services in your home? No 03/08/2023 Depression Answer Date Recorded Patient Health Questionnaire-2 Score 2 01/20/2023 Comments Unknown Sex and Gender Information Value Date Recorded Sex Assigned at Female 03/02/2022 10:17 AM EDT Legal Sex Female 10:17 AM EDT Gender Identity Female 03/02/2022 10:17 AM EDT Sexual Orientation Straight 03/02/2022 10 :17 AM EDT documented as of this encounter Miscellaneous Notes * Telephone Encounter - Kely Townsend LPN - 06/02/2023 3:26 PM EST Medication pended to PCP. * Telephone Encounter - Porsha Bhagat - 06/02/2023 11:16 AM EST TC from pt requesting medication refill. Medications needing refill : zolpidem (Ambien) 5 MG tablet To be sent to: [facility] - [place], [place] - [facility] [address] documented in this encounter Plan of Treatment Not on file documented as of this encounter Visit Diagnoses Not on filedocumented in this encounter Additional Health Concerns Assessment Noted Time PHQ-9 Depression Total Score: 4 01/21/20 23 10:06 AM EDT documented as of this encounter Care Teams Admissions Nurse Relationship Specialty Start Date End Date Dedar Arzola MD [address] [place] [address] PCP - General Family Medicine 04/06/12 documented as of this encounter
--- OUTSIDE RECORDS SUMMARY | 2024-06-23 12:34 | XMS_ITS | Encounter Summary ---
Author Organization [employer] Address [address] [facility] [address] [place] [address] Care Team Providers Care Educational Consultant Name Role Phone Dedra Arzola MD Primary Care Provider [phone] Encounter Details Date Type Department Care Team (Latest Contact Info) Description 05/26/2024 Travel Social History Tobacco Use Types Packs/Day Years Used Date Smoking Tobacco: Never Passive Smoke Exposure: Never Smokeless Tobacco: Never Alcohol Use Standard Drinks/Week Comments Never 0 (1 standard drink = 0.6 oz pur e alcohol) Alcohol Answer Date Recorded Frequency of Alcohol Consumption Not on file 03/13/2024 Average Number of Drinks Not on file 024 Frequency of Binge Drinking Not on file 03/03 Score 0 03/13/2024 Depression Answer Date Recorded Patient Health Questionnaire-9 Score 4 01/20/2023 Housing Stability Answer Date Recorded What is your housing situation today? I have hugo lucas 03/13/[address] you li ve. Do you have problems with any of the following? None of the above 03/13/2024 Food Insecurity Answer Date Recorded Within the past 12 months, y ou worried that your food would run out before you got money to buy more: Never True 03/13/2024 Within the past 12 months,th e food you bought just didn't last and you didn't have enough money to get more: Never True 03/2024 Transportation Answer Date Recorded In the past 12 months, has l ack of transportation kept you from medical appts, meetings, work or from getting things needed for daily living? No 03/13/2024 Utilities Answer Date Recorded In the past 12 months, has t he electric, gas, oil or water company threatened to shut off services in your home? No 03/13/2024 Depression Answer Date Recorded Patient Health Questionnaire-2 Score 2 01/20/2023 Internet Access Answer Date Recorded Internet Access Q1 No 03/13/2024 Internet Access Q2 I do not want or need it 03/03 Comments No Sex and Gender Information Value Date Recorded Sex Assigned at Female 03/02/2022 10:17 AM EDT Legal Sex Female 10:17 AM EDT Gender Identity Female 03/02/2022 10:17 AM EDT Sexual Orientation Straight 03/02/2022 10 :17 AM EDT documented as of this encounter Plan of Treatment Not on file documented as of this encounter Visit Diagnoses Not on filedocumented in this encounter Additional Health Concerns Assessment Noted Time PHQ-9 Depression Total Score: 4 01/21/20 23 10:06 AM EDT documented as of this encounter Care Teams Educational Consultant Relationship Specialty Start Date End Date Dedra Arzola MD [address] [place] [id number] PCP - General Family Medicine 04/06/12 documented as of this encounter
--- OUTSIDE RECORDS SUMMARY | 2024-06-23 12:34 | XMS_ITS | Encounter Summary ---
Author Organization [employer] Address [address] [facility] 7t [place] [address] Care Team Providers Care Adhesion Tester Name Role Phone Dedra Arzola MD Primary Care Provider [phone] Reason for Visit * Reason Comments Med Refill Encounter Details Date Type Department Care Team ([facility] st Contact Info) Description 05/27/2024 Refill [facility] CHC MED & PEDS [address] [place] [address] Dedra Arzola MD [address] [place] [address] Allergy, sequela Social History Tobacco Use Types Packs/Day Years [...] documented as of this encounter Visit Diagnoses Diagnosis Allergy, sequela documented in this encounter Additional Health Concerns Assessment Noted Time PHQ-9 Depression Total Score: 4 01/21/20 23 10:06 AM EDT documented as of this encounter Care Teams Adhesion Tester Relationship Specialty Start Date End Date Dedra Arzola MD [address] [place] [id number] PCP - General Family Medicine 04/06/12 documented as of this encounter
--- OUTSIDE RECORDS SUMMARY | 2024-06-23 12:34 | XMS_ITS | Encounter Summary ---
Author Organization [employer] Address [address] [facility] 7t [place] [address] Care Team Providers Care Care Program Resident Name Role Phone Dedra Arzola MD Primary Care Provider [phone] Encounter Details Date Type Department Care Team (Late st Contact Info) Description 11/12/[address] [facility] MEDICINE [address] [place], [place] [phone] Tricia Shoemaker LPN Social History Tobacco Use Types Packs/Day Years Used Date Smoking Tobacco: Never Passive Smoke Exposure: Never Smokeless Tobacco: Never Alcohol Use Standard Drinks/Week Comments Never 0 (1 standard drink = 0.6 oz pur e alcohol) Comments Unknown Sex and Gender Information Value Date Recorded Sex Assigned at Female 03/02/2022 10:17 AM EDT Legal Sex Female 10:17 AM EDT Gender Identity Female 03/02/2022 10:17 AM EDT Sexual Orientation Straight 03/02/2022 10 :17 AM EDT documented as of this encounter Plan of Treatment Not on file documented as of this encounter Visit Diagnoses Not on filedocumented in this encounter Care Teams Care Program Resident Relationship Specialty Start Date End Date Dedra Arzola MD [address] [place] [address] PCP - General Family Medicine 04/06/12 documented as of this encounter
--- OUTSIDE RECORDS SUMMARY | 2024-06-23 12:34 | XMS_ITS | Encounter Summary ---
Author Organization [employer] Address 75 [facility] 7t [place] [address] Care Team Providers Care Verification Clerk Name Role Phone Dedra Arzola MD Primary Care Provider [phone] Reason for Visit * Reason Comments Med Refill Encounter Details Date Type Department Care Team (Late st Contact Info) Description 06/20/2024 Refill [facility] CHC MED & PEDS [address] [place], [place] [phone] Dedra Arzola MD [address] [place] [address] Primary hypertension; Insomnia, unspecified type Social History Tobacco Use Types Packs/Day Years [...] as of this encounter Visit Diagnoses Diagnosis Primary hypertension Unspecified essential hypertension Insomnia, unspecified type documented in this encounter Additional Health Concerns Assessment Noted Time PHQ-9 Depression Total Score: 4 01/21/20 23 10:06 AM EDT documented as of this encounter Care Teams Verification Clerk Relationship Specialty Start Date End Date Dedra Arzola MD [address] [place] [address] PCP - General Family Medicine 04/06/12 documented as of this encounter
--- OUTSIDE RECORDS SUMMARY | 2024-06-23 12:34 | XMS_ITS | Encounter Summary ---
Author Organization [employer] Address [address] [facility] 7t [place] [address] Care Team Providers Care Cobbler Mckay Name Role Phone Dedra Arzola MD Primary Care Provider [phone] Encounter Details Date Type Department Care Team (Latest Contact Info) Description 05/19/2019 Abstract [facility] CONVERSIONS Dental, Provider, DDS Social History Tobacco Use Types Packs/Day Years Used Date Smoking Tobacco: Never Assessed Comments Unknown Sex and Gender Information Value [...] on filedocumented in this encounter Care Teams Cobbler Mckay Relationship Specialty Start Date End Date Dedra Arzola MD [address] [place] [id number] PCP - General Family Medicine 04/06/12 documented as of this encounter
--- OUTSIDE RECORDS SUMMARY | 2024-06-23 12:34 | XMS_ITS | Encounter Summary ---
Author Organization [employer] Address [address] [facility] 7t [place] [address] Care Team Providers Care Supervisor Finishing Name Role Phone Dedra Arzola MD Primary Care Provider [phone] Reason for Visit * Reason Comments Med Refill Encounter Details Date Type Department Care Team ([facility] st Contact Info) Description 05/29/2024 Refill [facility] CHC MED & PEDS [address] [place], [place] [phone] Dedra Arzola MD [address] [place] [address] Hypothyroidism, unspecified type Social History Tobacco Use Types [...] as of this encounter Visit Diagnoses Diagnosis Hypothyroidism, unspecified type documented in this encounter Additional Health Concerns Assessment Noted Time PHQ-9 Depression Total Score: 4 01/21/20 23 10:06 AM EDT documented as of this encounter Care Teams Supervisor Finishing Relationship Specialty Start Date End Date Dedra Arzola MD [address] [place] [phone] PCP - General Family Medicine 04/06/12 documented as of this encounter
--- OUTSIDE RECORDS SUMMARY | 2024-06-23 12:34 | XMS_ITS | Encounter Summary ---
Author Organization [employer] Address [address] [facility] [address] 7[address] [place] [address] Care Team Providers Care Air Conditioning Unit Tester Name Role Phone Dedra Arzola MD Primary Care Provider [phone] Encounter Details Date Type Department Care Team ([facility] st Contact Info) Description 02/12/2023 Orders Only [facility] CHC MED & PEDS [address] [place] [address] Dedra Arzola MD [address] [place] [address] Social History Tobacco Use Types Packs/Day Years Used Date Smoking Tobacco: Never Passive Smoke Exposure: Never Smokeless Tobacco: Never Alcohol Use Standard Drinks/Week Comments Never 0 (1 standard drink = 0.6 oz pur e alcohol) Depression Answer Date Recorded Patient Health Questionnaire-9 Score 4 01/20/2023 Housing Stability Answer Date Recorded What is your housing situation today? I have hugo lucas 02/08/[address] you li ve. Do you have problems with any of the following? None of the above 02/08/2023 Food Insecurity Answer Date Recorded Within the past 12 months, y ou worried that your food would run out before you got money to buy more: Never True 02/08/2023 Within the past 12 months,th e food you bought just didn't last and you didn't have enough money to get more: Never True 01/2023 Transportation Answer Date Recorded In the past 12 months, has l ack of transportation kept you from medical appts, meetings, work or from getting things needed for daily living? No 02/08/2023 Utilities Answer Date Recorded In the past 12 months, has t he [employer], gas, oil or water company threatened to shut off services in your home? No 02/08/2023 Depression Answer Date Recorded Patient Health Questionnaire-2 [...] documented as of this encounter Care Teams Air Conditioning Unit Tester Relationship Specialty Start Date End Date Dedra Arzola MD [address] [place] [phone] PCP - General Family Medicine 04/06/12 documented as of this encounter
--- OUTSIDE RECORDS SUMMARY | 2024-06-23 12:35 | XMS_ITS | Encounter Summary ---
Author Organization [employer] Address [address] [facility] 7t [place] [address] Care Team Providers Care Sales Data Analyst Name Role Phone Dedra Arzola MD Primary Care Provider [phone] Encounter Details Date Type Department Care Team (Latest Contact Info) Description 09/12/2021 Abstract [facility] CONVERSIONS Dental, Provider, DDS Social History Tobacco [...] on filedocumented in this encounter Care Teams Sales Data Analyst Relationship Specialty Start Date End Date Dedra Arzola MD [address] [place] [address] PCP - General Family Medicine 04/06/12 documented as of this encounter
--- OUTSIDE RECORDS SUMMARY | 2024-06-23 12:35 | XMS_ITS | Encounter Summary ---
Author Organization [employer] Address [address] [facility] 7t [place] [address] Care Team Providers Care Ship Scaler Name Role Phone Dedra Arzola MD Primary Care Provider [phone] Encounter Details Date Type Department Care Team (Latest Contact Info) Description 05/13/2018 Abstract [facility] CONVERSIONS Dental, Provider, DDS Social History Tobacco [...] on filedocumented in this encounter Care Teams Ship Scaler Relationship Specialty Start Date End Date Dedra Arzola MD [address] [place] [phone] PCP - General Family Medicine 04/06/12 documented as of this encounter
--- OUTSIDE RECORDS SUMMARY | 2024-06-23 12:35 | XMS_ITS | Encounter Summary ---
Author Organization [facility] Address [address] [place] [address] Phone Care Team Providers Care Journeyman Level Acoustic Analyst Name Role Phone Dedra Arzola MD Primary Care Provider [phone] Encounter Details Date Type Department Care Team (Late st Contact Info) Description 09/10/2020 Orders Only [facility] [address] [place] [address] ProviderTony MD [address] [place] [address] Social History Tobacco Use Types Packs/Day Years Used Date Smoking Tobacco: Former Cigarettes Q uit: 05/03/1998 Alcohol Use Standard Drinks/Week Comments Yes 0 (1 standard drink = 0.6 oz pure alcohol) Alcoholic Drinks/day: Occasional social drink Comments Unknown Sex and Gender Information Value Date Recorded Sex Assigned at Not on file Legal Sex Female 5:05 PM EST Gender Identity Not on file Sexual Orientation Not on file COVID-19 Exposure Response Date Recorded In the last month, have you been in contact with someone who was confirmed or suspected to have Coronavirus / COVID-19? No / Unsure 09/11/2020 1:31 PM EDT documented as of this encounter Plan of Treatment Not on file documented as of this encounter Procedures Procedure Name Priority Date/Time Associated Diagnosis Comments EXT RESULT ENTRY Routine 07/31/2020 documented in this encounter Results * EXT RESULT ENTRY (07/31/2020) Historical Provider LAB BLOOD ORDERABLES Cordelia l Result documented in this encounter Visit Diagnoses Not on filedocumented in this encounter Care Teams Journeyman Level Acoustic Analyst Relationship Specialty Start Date End Date Dedra Arzola MD [address] [place] [phone] PCP - General 05/13/20 documented as of this encounter
--- OUTSIDE RECORDS SUMMARY | 2024-06-23 12:35 | XMS_ITS | Encounter Summary ---
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 Linnette Espinal, OD [address] [place] [address] Phone: tel: fax: Linnette Calderon, OD [address] [place] [address] Phone: tel: fax: Referral ID Status Reason Start Date Expiration Date Visits Requested Visits Authorized [id number] Authorized Specialty Services Required 06/05/2024 06/05/2025 1 1 Encounter Details Date Type Department Care Team (Latest Contact Info) Description 05/26/2024 11:15 AM EST Office Visit [facility] [address] [place] [address] Linnette Espinal, OD [address] [place] [address] 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 female. HPI T2DM exam. Last A1c 5.4% on 03/13/24. Patient reports she is legally blind but is unsure what caused it. Patient was previously followed by [facility]. Patient stopped going after being told she was blind and could no longer drive. Patient states she has had one ocular injection in the past. Patient takes AREDS BID PO - per recommendation of specialist. ELROY: 2-3 years ago Last edited by Linnette Espinal OD on 06/05/2024 10:05 AM. Current Outpatient Medications Medication Sig Dispense Refill acetaminophen (Tylenol) 500 MG tablet Take 2 tablets by mouth every 4 (four) hours. amLODIPine (Norvasc) 10 MG tablet take ONE tablet BY MOUTH EVERY MORNING 90 tablet 1 Aspirin Low Dose 81 MG chewable tablet CHEW ONE TABLET EVERY MORNING 60 tablet 4 betamethasone dipropionate 0.05 % cream Apply 1 application topically every 12 (twelve) hours. Dgkczcr-Hpetfbcdpc-Bjuekal D (Citracal +D3) 250-107-500 MG-MG-UNIT chewable tablet cetirizine (ZyrTEC) 10 MG tablet TAKE ONE TABLET EVERY NIGHT AT BEDTIME 30 tablet 11 cloNIDine (Catapres) 0.1 MG tablet TAKE ONE TABLET EVERY MORNING 30 tablet 3 DULoxetine (Cymbalta) [address] capsule Take 1 capsule (40 mg) by mouth Once per day. Do not crush or chew. 30 capsule 11 fluticasone (Flonase) 50 MCG/ACT nasal spray INHALE 2 SPRAYS IN EACH NOSTRIL ONCE DAILY IN THE MORNING 16 g 0 FREESTYLE LITE test strip USE ONE TO TEST BLOOD SUGAR EVERY DAY 50 strip 11 glucose blood (FREESTYLE LITE) test strip USE 1 STRIP by DIRECTED route every day hydroCHLOROthiazide (HYDRODiuril) 25 MG tablet TAKE ONE TABLET EVERY MORNING 90 tablet 1 Icosapent Ethyl (Vascepa) 1 g capsule TAKE TWO CAPSULES TWICE DAILY IN THE MORNING AND EVENING WITHFOOD 360 capsule 0 levothyroxine (Synthroid, Levoxyl) 50 MCG tablet TAKE ONE TABLET EVERY MORNING 30 tablet 1 Lidocaine 4 % patch use 1 patch every 12 hrs Multiple Vitamins-Minerals (PreserVision AREDS 2) capsule rosuvastatin (Crestor) 10 MG tablet TAKE ONE TABLET EVERY NIGHT AT BEDTIME 90 tablet 1 sertraline (Zoloft) 100 MG tablet TAKE ONE TABLET EVERY MORNING 90 tablet 4 traMADol (Ultram) 50 MG tablet Take 1 tablet by mouth every 12 (twelve) hours. TRUEplus Lancets 33G misc USE ONE EVERY DAY 100 each 11 zolpidem (Ambien) 5 MG tablet TAKE ONE TABLET EVERY NIGHT AT BEDTIME NEEDED FOR SLEEP 30 tablet 0 No current facility-administered medications for this visit. Past Medical History: Diagnosis Date Diabetes mellitus (CMS/HCC) Disease of thyroid gland Hypertension Periodontal disease Past Surgical History: Procedure Laterality Date CATARACT EXTRACTION, BILATERAL PROSTHODONTIC PROCEDURE WISDOM TOOTH EXTRACTION No family history on file. Tobacco Use: Low Risk (05/26/2024) Tobacco Smoking Tobacco Use: Never Smokeless Tobacco Use: Never Passive Exposure: Never Allergies Allergen Reactions Gabapentin Dizziness Hyoscyamine Other reaction(s): unspecified Statins Hives Sulfa Antibiotics Penicillins Rash ROS Positive for: Endocrine, Eyes Negative for: Constitutional, Gastrointestinal, Neurological, Skin, Genitourinary, Musculoskeletal,HENT, Cardiovascular, Respiratory, Psychiatric, Allergic/Imm, Heme/Lymph Last edited by Linnette Espinal, ELÍAS on 05/26/2024 11:18 AM. Base Eye Exam Visual Acuity (Snellen - Linear) Right Left Both Dist cc 20/200 CF @ 4ft Dist ph cc 20/400 Near cc 20/100 Tonometry (iCare , 4:05 pm) Right Left Pressure 11 11 Pupils Pupils APD Right PERRL None Left PERRL None Visual Lundy (Counting fingers) Left Right Full Full Extraocular Movement Right Left Full Full Neuro/Psych Oriented x3: Yes Dilation Both eyes: 1.0% tropicamide @ 04:05 PM Slit Lamp and Fundus Exam External Exam Right Left External Normal Normal Slit Lamp Exam Right Left Lids/Lashes Clean and clear Clean and clear Conjunctiva/Sclera White and quiet White and quiet Cornea Clear Clear Anterior Chamber Deep and quiet, angles open gr 4 Deep and quiet, angles open gr 4 Iris Round and reactive, (-) NVI Round and reactive, (-) NVI Lens PC-IOL PC-IOL Fundus Exam Right Left Vitreous Clear Clear Disc [place] and healthy, PPA (-) NVD [place] and healthy, PPA, (-) NVD C/D Ratio Vertical 0.15 0.15 C/D Ratio Horizontal 0.15 0.15 Macula RPE mottling, small hard drusen, (-) CME Large areas of geographic atrophy, (-) CME Vessels Normal course and caliber, (-) NVE Normal course and caliber, (-) NVE Periphery No holes/tears/detachments 360 No holes/tears/detachments 360 Assessment and Plan Diagnoses and all orders for this visit: 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 Patient was previously followed by [facility] but stopped going 2-3 years ago after being told she was legally blind. - Some macular drusen & RPE migration right eye (OD) however structural appearance does not correspond to severe reduction in BCVA. Poor vision left eye (OS) explained by subfoveal geographic atrophy. - Records release request sent to [facility] today - Did not dispense spec Rx today. Recommended low vision evaluation, at which time refraction will be performed. Patient is interested in low vision appt. Referral placed today - Continue AREDS 2 BID PO Orders: - OCT, Retina - OU - Both Eyes - Referral to Optometry, Internal; Future 2. Type 2 diabetes mellitus without ophthalmic manifestations (CMS/HCC) - No diabetic retinopathy or diabetic macular edema both eyes (OU) - Discussed importance of tight blood glucose control, medication compliance and regular follow up with PCP RTC 4 months for age-related macular degeneration (ARMD) both eyes (OU) f/u. 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 documented in this encounter Results * OCT, Retina - OU - Both Eyes (05/26/2024 11:15 AM EST) Linnette Parish, OD - 06/05/2024 10:52 AM EST OCT [facility]ULA INTERPRETATION Optical Coherence Tomography Interpretation Report Reliability: OD: 64, good quality OCT scan OS: 56, good quality OCT scan Measurements: Central subfoveal thickness OD: ??197 microns OS: ??51 microns Test findings: OD: Normal foveal contour, all layers intact, no IRF/SRF; small hyper-reflective subfoveal lesion, (+) tr ERM OS: Exaggerated foveal contour due to complete subfoveal outer retinal atrophy, SIRE lesions superior temporal to fovea, no IRF/SRF Impression and Plan: Age related macular degeneration both eyes (OU). Request previous records. Refer to [facility]. Monitor in 4 months. 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
--- OUTSIDE RECORDS SUMMARY | 2024-06-23 12:35 | XMS_ITS | Encounter Summary ---
Author Organization [employer] Address [address] [facility] [address] [place] [address] Care Team Providers Care Manager Safe Name Role Phone Dedra Arzola MD Primary Care Provider [phone] Encounter Details Date Type Department Care Team ([facility] st Contact Info) Description 08/06/2022 Orders Only [facility] MED & PEDS [address] [place], [place] [phone] Dedra Arzola MD [address] [place], [place] [phone] Social History Tobacco Use Types Packs/Day Years [...] Orientation Straight 03/02/2022 10 :17 AM EDT COVID-19 Exposure Response Date Recorded In the last 10 days, have yo u been in contact with someone who was confirmed or suspected to have Coronavirus/COVID-19? No / Unsure 08/05/2022 8:59 AM EDT documented as of this encounter Plan of Treatment Not on file documented as of this encounter Visit Diagnoses Not on filedocumented in this encounter Care Teams Manager Safe Relationship Specialty Start Date End Date Derda Arzola MD [address] [place] [phone] PCP - General Family Medicine 04/06/12 documented as of this encounter
--- OUTSIDE RECORDS SUMMARY | 2024-06-23 12:35 | XMS_ITS | Encounter Summary ---
Author Organization [employer] Address [address] [facility] [address] [place] [address] Care Team Providers Care Wig Dresser Name Role Phone Dedra Arzola MD Primary Care Provider [phone] Encounter Details Date Type Department Care Team ([facility] st Contact Info) Description 09/09/2023 Orders Only [facility] CHC MED & PEDS [address] [place] [address] Dedra Arzola MD [address] [place], [place] [phone] Social History Tobacco Use Types Packs/Day Years [...] the past 12 months, has t he [employer], gas, oil or water company threatened to [...] documented as of this encounter Care Teams Wig Dresser Relationship Specialty Start Date End Date Dedra Arzola MD [address] [place] [phone] PCP - General Family Medicine 04/06/12 documented as of this encounter
--- OUTSIDE RECORDS SUMMARY | 2024-06-23 12:35 | XMS_ITS | Encounter Summary ---
Author Organization [employer] Address [address] [facility] [address] [place] [address] Care Team Providers Care Dry Charge Process Attendant Name Role Phone Dedra Arzola MD Primary Care Provider [phone] Reason for Visit * Reason Comments Med Refill Encounter Details Date Type Department Care Team ([facility] st Contact Info) Description 01/09/2023 Refill C [facility] MED [facility] PEDS [address] [place], [place] [phone] Hernando Patel MD [address] [place], [place] [phone] Primary hypertension Social History Tobacco Use Types Packs/Day Years [...] Diagnoses Diagnosis Primary hypertension Unspecified essential hypertension documented in this encounter Care Teams Dry Charge Process Attendant Relationship Specialty Start Date End Date Dedra Arzola MD [address] [place] [address] PCP - General Family Medicine 04/06/12 documented as of this encounter
--- OUTSIDE RECORDS SUMMARY | 2024-06-23 12:35 | XMS_ITS | Encounter Summary ---
Author Organization [employer] Address [address] [facility] [address] [place] [address] Care Team Providers Care Hand Decorator Name Role Phone Dedra Arzola MD Primary Care Provider [phone] Reason for Visit * Reason Comments Med Refill Encounter Details Date Type Department Care Team ([facility] st Contact Info) Description 05/23/2024 Refill [facility] CHC MED & PEDS [address] [place], [place] [phone] Dedra Arzola MD [address] [place] [address] Insomnia, unspecified type Social History Tobacco Use [...] as of this encounter Visit Diagnoses Diagnosis Insomnia, unspecified type documented in this encounter Additional Health Concerns Assessment Noted Time PHQ-9 Depression Total Score: 4 01/21/20 23 10:06 AM EDT documented as of this encounter Care Teams Hand Decorator Relationship Specialty Start Date End Date Dedra Arzola MD [address] [place] [phone] PCP - General Family Medicine 04/06/12 documented as of this encounter
--- OUTSIDE RECORDS SUMMARY | 2024-06-23 12:35 | XMS_ITS | Clinical Summary ---
Author Organization [facility] Address [address] [facility] [address] [place] [address] Phone Care Team Providers Care Crime Scene Specialist Name Role Phone Dedra Arzola MD Primary Care Provider [phone] Allergies Active Allergy Reactions Criticality Noted Date Comments Gabapentin Other (see comments) 07/20/2022 Hyoscyamine 06/02/2010 Other reaction(s): unspecified Penicillins Other (see comments) 09/10/2020 Statins Hives 06/02/2010 Sulfa Antibiotics 04/12/2012 Medications omega-3 (FISH OIL) 1000 MG capsule Take 1 capsule by mouth 1 (one) time each day Active aspirin (ST EZ) 81 MG EC tablet Take 1 tablet by mouth 1 (one) time each day Active cetirizine (ZyrTEC) 10 MG tablet Take 1 tablet by mouth 1 (one) time each day Active hydroCHLOROthia zide (HYDRODIURIL) 25 MG tablet Take 0.5 tablets by mouth 1 (one) time each day Active levothyroxine (SYNTHROID, LEVOTHROID) 50 MCG tablet Take 1 tablet by mouth 1 (one) time each day Active Ventolin HFA 108 (90 Base) MCG/ACT inhaler INHALE TWO PUFFS EVERY 4 TO 6 HOURS NEEDED SHORTNESS OF BREATH OR FOR WHEEZING. 1 Active amLODIPine (NORVASC) 10 MG tablet TAKE ONE TABLET BY MOUTH EVERY MORNING 1 Active fluticasone (FLONASE) 50 MCG/ACT nasal spray INHALE TWO SPRAYS IN EACH NOSTRIL DAILY 1 Active Diclofenac Sodium 1 % gel APPLY TWO grams TO THE AFFECTED AREA(s) FOUR TIMES DAILY 1 Active Vascepa 1 g capsule TAKE TWO CAPSULES TWICE DAILY IN THE MORNING AND EVENING 1 Active montelukast (SINGULAIR) 10 MG tablet TAKE ONE TABLET EVERY EVENING 1 Active Advair Diskus 250-50 MCG/DOSE diskus inhaler USE ONE INHALATION TWICE DAILY. RINSE MOUTH AFTER USE. 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 Hypothyroidism 11/10/2012 Benign essential hypertension 04/12/2012 FH: Cardiovascular disease 04/12/2012 Atypical chest pain 04/12/2012 Overview (04/22/2021): 02/11 MIBI did not show any perfusion defects 02/11 echo revealed normal LVEF with EF 55-60%, diastolic dysfunction and mild aortic regurgitation Obesity 04/12/2012 Other and unspecified hyperlipidemia 04/12/2012 Pain in limb 04/12/2012 Overview (04/22/2021): 03/14 lower extremity U/S revealed normal lower extremity arteries, triphasic flow with normal ankle brachial index bilaterally Tobacco use and exposure - finding 04/12/2012 Pure hypercholesterolemia 07/27/2011 Gastroesophageal reflux disease 07/27/2011 Immunizations Name Administration Dates Next Due Influenza Split High Dose Preservative Free IM 0 01/02/2016 Pfizer SARS-COV-2 04/16/2022 Pneumococcal Polysaccharide 10/04/2013 Family History Medical History Relation Comments Hypertension Father Hypertension Mother Relation Status Comments Father Mother Social History Tobacco Use Types Packs/Day Years Used Date Smoking Tobacco: Former Cigarettes Q uit: 05/03/1998 Smokeless Tobacco: Never Alcohol Use Standard Drinks/Week Comments Yes 0 (1 standard drink = 0.6 oz pure alcohol) Alcoholic Drinks/day: Occasional social drink Comments Unknown Sex and Gender Information Value Date Recorded Sex Assigned at Not on file Legal Sex Female 5:05 PM EST Gender Identity Not on file Sexual Orientation Not on file Last Filed Vital Signs Vital Sign Reading Time Taken Comments Blood Pressure 124/60 09/16/2022 2:44 PM EDT Pulse 74 09/16/2022 2:44 PM EDT Temperature - - Respiratory Rate - - Oxygen Saturation 98% 09/16/2022 2:44 PM EDT Inhaled Oxygen Concentration - - Weight 69.4 kg (153 lb) 09/16/2022 2:44 PM EDT Height 154.9 cm (5' 1 ) 04/11/2019 12:00 PM EST Body Mass Index 28.91 04/11/2019 12:00 PM EST Plan of Treatment Health Maintenance Due Date Last Done Comments Pneumococcal Vaccine: 65+ Ye ars (2 of 2 - PCV) 10/04/2014 10/04/2013 Diabetes: Ophthalmology Exam 09/16/2022 Diabetes: Pedal Pulse Checked 09/16/2022 Diabetes: Sensory Foot Exam 09/16/2022 Diabetes: Visual Foot Exam 09/16/2022 Diabetes: Hemoglobin A1C 11/04/2022 08/05/2022 Influenza Vaccine (#1) 2024 01/02/2016 Hepatitis B Vaccine Aged Out No longe r eligible based on patient's age to complete this topic Insurance [place]ICARE [place]ID [place] Care Teams Crime Scene Specialist Relationship Specialty Start Date End Date Dedra Arzola MD [address] [place] [id number] PCP - General 05/13/20
--- OUTSIDE RECORDS SUMMARY | 2024-06-23 12:35 | XMS_ITS | Clinical Summary ---
Author Organization [employer] Address [address] [facility] 7[address] [place] [address] Care Team Providers Care Electrophysiology Scientist Name Role Phone Dedra Arzola MD Primary Care Provider [phone] Allergies Active Allergy Reactions Criticality Noted Date Comments Gabapentin Dizziness 07/20/2022 Hyoscyamine 06/02/2010 Other reaction(s): unspecified Penicillins Rash Low 07/20/2022 Statins Hives 06/02/2010 Sulfa Antibiotics 04/12/2012 Medications glucose blood (FREESTYLE LITE) test strip USE 1 STRIP by DIRECTED route every day 08/14/19 21 Active acetaminophen (Tylenol) 500 MG tablet Take 2 tablets by mouth every 4 (four) hours. 11/01/19 22 Active betamethasone dipropionate 0.05 % cream Apply 1 application topically every 12 (twelve) hours. 05/06/19 21 Active Calcium-Phosphor us-Vitamin D (Citracal +D3) 250-107-500 MG-MG-UNIT chewable tablet Acti ve Lidocaine 4 % patch use 1 patch every 12 hrs 11/08/19 22 Active Multiple Vitamins-Mineral s (PreserVision AREDS 2) capsule Act thuan traMADol (Ultram) 50 MG tablet Take 1 tablet by mouth every 12 (twelve) hours. 02/24/20 22 Active cloNIDine (Catapres) 0.1 MG tablet TAKE ONE TABLET EVERY MORNING 30 tablet 3 02/11/20 23 Active TRUEplus Lancets 33G miscIndications: Type 2 diabetes mellitus without complications (CMS/HCC) USE ONE EVERY DAY 100 each 11 05/14/19 24 Active fluticasone (Flonase) 50 MCG/ACT nasal sprayIndications :Allergy, unspecified, sequela INHALE 2 SPRAYS IN EACH NOSTRIL ONCE DAILY IN THE MORNING 16 g 09/01/19 24 Active sertraline (Zoloft) 100 MG tablet TAKE ONE TABLET EVERY MORNING 90 tablet 4 11/17/19 24 Active Aspirin Low Dose 81 MG chewable tablet CHEW ONE TABLET EVERY MORNING 60 tablet 4 11/17/19 24 Active FREESTYLE LITE test stripIndications :Type 2 diabetes mellitus without complications (CMS/HCC) USE ONE TO TEST BLOOD SUGAR EVERY DAY 50 strip 12/13/19 24 Active DULoxetine (Cymbalta) [address] capsuleIndicatio ns:Scalp itch Take 1 capsule (40 mg) by mouth Once per day. Do not crush or chew. 30 capsule 01/11/20 24 2024 Active rosuvastatin (Crestor) 10 MG tablet TAKE ONE TABLET EVERY NIGHT AT BEDTIME 90 tablet 1 02/08/20 24 Active hydroCHLOROthiaz lynn (HYDRODiuril) 25 MG tablet TAKE ONE TABLET EVERY MORNING 90 tablet 1 03/28/20 24 Active Icosapent Ethyl (Vascepa) 1 g capsuleIndicatio ns:Major depressive disorder with current active episode, unspecified depression episode severity, unspecified whether recurrent TAKE TWO CAPSULES TWICE DAILY IN THE MORNING AND EVENING WITH FOOD 360 capsule 04/28/20 24 Active cetirizine (ZyrTEC) 10 MG tabletIndication s:Allergy, sequela TAKE ONE TABLET EVERY NIGHT AT BEDTIME 30 tablet 11 05/30/19 25 Active levothyroxine (Synthroid, Levoxyl) 50 MCG tabletIndication s:Hypothyroidism , unspecified type TAKE ONE TABLET EVERY MORNING 30 tablet 1 05/29/19 25 Active amLODIPine (Norvasc) 10 MG tabletIndication s:Primary hypertension TAKE ONE TABLET EVERY MORNING 90 tablet 1 06/21/19 25 Active zolpidem (Ambien) 5 MG tabletIndication s:Insomnia, unspecified type TAKE ONE TABLET AT BEDTIME NEEDED FOR SLEEP 30 tablet 06/21/19 25 Active cetirizine (ZyrTEC) 10 MG tabletIndication s:Allergy, sequela TAKE ONE EVERY NIGHT AT BEDTIME 30 tablet 11 06/09/19 24 2024 Discontinued amLODIPine (Norvasc) 10 MG tabletIndication s:Primary hypertension take ONE tablet BY MOUTH EVERY MORNING 90 tablet 1 01/04/20 24 2024 Discontinued levothyroxine (Synthroid, Levoxyl) 50 MCG tabletIndication s:Hypothyroidism , unspecified type TAKE ONE TABLET EVERY MORNING 90 tablet 1 02/08/20 24 2024 Discontinued zolpidem (Ambien) 5 MG tabletIndication s:Insomnia, unspecified type TAKE ONE TABLET EVERY NIGHT AT BEDTIME NEEDED FOR SLEEP 30 tablet 05/24/192024 Discontinued Active Problems Problem Noted Date Diagnosed Date Type 2 diabetes mellitus wit hout complication, without long-term current use of insulin 08/05/2022 Stage 3 chronic kidney disease 09/10/2020 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 Hypothyroidism 11/10/2012 Benign essential hypertension 07/27/2011 Pure hypercholesterolemia 07/27/2011 Gastroesophageal reflux disease 07/27/2011 Encounters Date Type Department Care Team Description 06/20/2024 Refill [facility] MED & PEDS [address] [place] [address] Dedra Arzola MD Primary hypertension; Insomnia, unspecified type 05/29/2024 Refill [facility] MED & PEDS [address] [place] [address] Dedra Arzola MD Hypothyroidism, unspecified type 05/27/2024 Refill [facility] MED & PEDS [address] [place] [address] Dedra Arzola MD Allergy, sequela 05/26/2024 11:15 AM EST Office Visit [facility] OPTOMETRY [address] [place] [address] Linnette Espinal, OD 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 (Primary Dx); Type 2 diabetes mellitus without ophthalmic manifestations ([facility]) 05/26/2024 Travel 05/23/2024 Telephone [facility] MED & PEDS [address] [place] [address] Dedra Arzola MD Med Refill 05/23/2024 Refill [facility] MED & PEDS [address] [place] [address] Dedra Arzola MD Insomnia, unspecified type 04/28/2024 Refill [facility] MED & PEDS [address] [place] [address] Dedra Arzola MD Major depressive disorder with current active episode, unspecified depression episode severity, unspecified whether recurrent 04/20/2024 Refill [facility] MED & PEDS [address] [place] [address] Dedra Arzola MD Insomnia, unspecified type 03/27/2024 Refill [facility] MED & PEDS [address] [place] [address] Dedra Arzola MD 03/23/2024 Telephone [facility] MED & PEDS [address] [place] [address] Dedra Arzola MD from Last 3 Months Immunizations Name Administration Dates Next Due Influenza High-dose Quadriva lent Preservative Free 01/20/2023,02/23/2022,01/16/2021,01/31 Influenza injectable quadriv alent IIV4 with preservative 04/05/2019,03/10/2018,01/27/2017,03/17,01/28/2015 Influenza, High Dose Seasona l, Preservative Free 03/13/2024,01/02/2016 Influenza, IIV3, injectable 01/12/2014 Influenza, Split (incl. kyle fied surface antigen) 02/21/2013,01/22/2012 Pfizer Covid-19 Vaccine 12+ Bivalent 04/16/2022 Pneumococcal Conjugate PCV 13 03/17/2016 Pneumococcal Polysaccharide PPSV23 03/10/2018, Tdap 06/18/2015 Zoster, Recombinant 11/25/2021,09/16/2021 Zoster, live 08/05/2016 Social History Tobacco Use Types Packs/Day Years Used Date Smoking Tobacco: Never Passive Smoke Exposure: Never Smokeless Tobacco: Never Tobacco Cessation:Counseling Given: Not Answered Alcohol Use Standard Drinks/Week Comments Never 0 [...] Orientation Straight 03/02/2022 10 :17 AM EDT Last Filed Vital Signs Vital Sign Reading Time Taken Comments Blood Pressure 147/67 03/13/2024 9:46 AM EST Pulse 78 03/13/2024 9:46 AM EST Temperature 36.2 ??C (97.2 ??F) 03/13/2024 9:46 AM ES T Respiratory Rate 20 03/13/2024 9:46 AM EST Oxygen Saturation 98% 01/11/2024 9:02 AM EDT Inhaled Oxygen Concentration - - Weight 67.1 kg (148 lb) 03/13/2024 9:46 AM EST Height 156.2 cm (5' 1.5 ) 03/13/2024 9:46 AM EST Body Mass Index 27.51 03/13/2024 9:46 AM EST Plan of Treatment Health Maintenance Due Date Last Done Comments Dental X-Ray: Full Mouth 1940 RSV Patients and Patients Aged 60 years or older (1 - 1-dose 75+ series) 2017 Dental Oral Exam 09/16/2023 03/17/2023 Dental Prophylaxis 09/16/2023 03/17/2023, 07/20/2022 Depression Screening 01/21/2024 01/20/2023, 01/21/20 23 Dental X-Ray: Bitewings 03/18/2024 03/17/2023 Diabetes: Hemoglobin A1C 06/13/2024 024, 09/28/2023, 01/20/2023, Additional history exists Mammogram 06/18/2024 06/18/2023, 06/03, 06/11/2021, Additional history exists Diabetes: Foot Exam 09/27/2024 09/28/2023, 09/28/2023, 09/28/2023, Additional history exists Diabetes: Urine Protein Screening 09/27/2024 09/28/2023, 08/05/2022, 02/14/2021 Alcohol/Substance Use Screening 03/13/2025 03/13/2024 COVID-19 Vaccine ( season) 2025 04/16/2022, 09/09/2021, 01/29/2021, Additional history exists Postponed from 01/02/2024 (Patient Refused) Lipid Panel 03/13/2025 03/13/2024, 09/01, 01/21/2023, Additional history exists SDOH Screening 03/13/2025 03/13/2024 Tobacco Screening 05/26/2025 05/26/2024 DTaP/Tdap/Td Vaccines (2 - Td or Tdap) 06/18/2025 06/18/2015 Eye Exam 05/26/2026 05/26/2024, 05/04, 05/26/2024, Additional history exists Pneumococcal Vaccine: 50+ Years Completed 03/10/2018, 03/17/2016, 10/04/2013 Zoster Vaccines Completed 11/25/2021, 08/31, 08/05/2016 Influenza Vaccine Completed 03/13/2024, , 02/23/2022, Additional history exists HIB Vaccines Aged Out No longer eligi ble based on patient's age to complete this topic HPV Vaccines Aged Out No longer eligi ble based on patient's age to complete this topic Hepatitis A Vaccines Aged Out No long er eligible based on patient's age to complete this topic Hepatitis B Vaccines Aged Out No long er eligible based on patient's age to complete this topic IPV Vaccines Aged Out No longer eligi ble based on patient's age to complete this topic Meningococcal Vaccine Aged Out No shane tani eligible based on patient's age to complete this topic RSV under 20 months Aged Out No longe r eligible based on patient's age to complete this topic Rotavirus Vaccines Aged Out No longer eligible based on patient's age to complete this topic Procedures Procedure Name Priority Date/Time Associated Diagnosis Comments OCT, RETINA - OU - BOTH EYES Routine 05/26/2024 11:15 AM EST 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 HEMOGLOBIN A1C Routine 03/13/2024 10:08 AM EST Type 2 diabetes mellitus without complication, without long-term current use of insulin (CMS/HCC) LIPID PANEL, STANDARD Routine 03/13/2024 10:08 AM EST Type 2 diabetes mellitus without complication, without long-term current use of insulin (CMS/HCC) Benign essential hypertension CREATININE, RANDOM URINE Routine 09/28/2023 10:00 AM EDT BI MAMMOGRAM SCREENING TOMOSYNTHESIS BILATERAL Routine 06/18/2023 10:40 AM EST PROPHYLAXIS - ADULT Routine 03/17/2023 9 :00 AM EST BITEWINGS - 4 RADIOGRAPHIC IMAGES Routine 03/17/2023 9:00 AM EST PERIODIC ORAL EVALUATION - ESTABLISHED PATIENT Routine 03/17/2023 9:00 AM EST from Last 3 Months or Most Recently Relevant to Health Maintenance Results * OCT, Retina - OU - Both Eyes (05/26/2024 11:15 AM EST) Narrative Linnette Espinal, OD - 06/05/2024 10:52 AM EST OCT [...] eyes (OU). Request previous records. Refer to low vision. Monitor in 4 months. us Linnette Espinal OD OPHTH TOMOGRAPHY Final Result * Hemoglobin A1c (03/13/2024 10:08 AM EST) Hemoglobin A1c 5.4 <6.0 % [facility] Comment:Hemoglobin A1C Refer ence Range Adults: 4.8 - 6.0 % Non diabetic: < 6.0 % Goal: < 7.0 %Additional Action Suggested: > 8.0 %Note: Hemoglobin A1c results are invalid for patients with abnormal amounts of HbF. Blood transfusions may impact the HbA1c concentration in the patient sample. Estimated Average Glucose 108 mg/dL [facility] Comment:eAG = Estimated ave rage glucose which is %A1C expressed asaverage glucose, using the formula of the [id number] Glucose study (ADAG), Diabetes Care, Vol.31,#8,Dec. 2007 Blood Venous blood specimen / Unknown 03/13/2024 10:08 AM EST 03/13/2024 2:03 PM EST us Dedra Arzola MD LAB BLOOD ORDERABLES Final Resul t [facility] [address] [place] [address] [phone] * (ABNORMAL) Lipid Panel, Standard (03/13/2024 10:08 AM EST) Triglycerides 174(H) <150 mg/dL [facility] Comment:Desirable Triglyceri de: less than 150 mg/dLBorderline High Triglyceride 150-199 mg/dLHigh Triglyceride: 200-499 mg/dLVery High Triglyceride: greater than or equal to 5OO mg/dL Cholesterol 169 <200 mg/dL [facility] Comment:Desirable Cholestero l: less than 200 mg/dLBorderline High Cholesterol: 200-239 mg/dLHigh Cholesterol: greater than 239 mg/dL LDL Cholesterol Calculated 91 <100 mg/dL [facility] Comment:Desirable LDL: less than 100 mg/dLNear Optimal/Above Optimal LDL: 110- 129 mg/dLBorderline High LDL: 130-159 mg/dLHigh LDL: 160-189 mg/dLVery High LDL: greater than or equal to 190 mg/dL HDL Cholesterol 44 >40 mg/dL [facility] Comment:Desirable HDL: great er than 40 mg/dL Note: This HDL assay may give artificially low results in patients with liver disease. Blood Venous blood specimen / Unknown 03/13/2024 10:08 AM EST 03/13/2024 2:03 PM EST us Dedra Arzola MD LAB BLOOD ORDERABLES Final Resul t Performing Organization Address City/[facility]/ZIP Co de Phone Number [facility] [address] [place] [phone] * Creatinine, Random Urine (09/28/2023 10:00 AM EDT) Creatinine, Urine 54.46 mg/dL [facility] 09/28/2023 10:0 0 AM EDT 09/28/2023 2:44 PM EDT us Generic External Data Provider LAB URINE ORDERAB LES Final Result Performing Organization Address [facility] [[email or web address]] Co de Phone Number [facility] [address] [place] [phone] * BI Mammogram Screening Tomosynthesis Bilateral (06/18/2023 10:40 AM EST) Anatomical Region Laterality Modality Breast Bilateral Mammography 06/18/2023 10:4 0 AM EST Narrative 07/13/2023 12:09 PM EDT ? [facility] ? [address] ?[place] [address] ? Mammography Report ? Signed ? Patient: Ethier,Margaret T ?MR#: [id number] ?? 54 ? : 1940 ?Acct:[id number] ? Age/Sex: 82 / F ?ADM Date: 06/18/23 ? Loc: HO.MAMMO ? Attending Dr: Dedra Arzola MD ? Ordering Physician: Dedra Arzola MD ?Results: 1Negati ?? ve ? Date of Service: 06/18/23 ?Follow Up: 1 Year From Orig ?? inal Mammogram ? Procedure(s): MM tomosynthesis screening BI ?? Accession Number(s): [id number] ? cc: Dedra Arzola MD ? EXAMINATION: ?? MM SCREENING DIGITAL BREAST TOMOSYNTHESIS, BILATERAL ? CLINICAL INFORMATION: ? Screening. Asymptomatic. ? COMPARISON: ?? Mammography: This study is compared with prior exams dating back to ?? 2019. ? TECHNIQUE: ?? Digital breast tomosynthesis is performed in both the craniocaudal and ?? mediolateral oblique views along with computer-aided detection (CAD). ?? Synthesized 2D images are generated from the tomosynthesis. ? FINDINGS: ?? The breasts are heterogeneously dense, which may obscure small masses ?? (ACR BI-RADS breast composition Category c). ? There are no significant masses, abnormal calcifications, or other ?? abnormalities. ? MM/MM tomosynthesis screening BI ?? IMPRESSION: ?? No mammographic evidence of malignancy. ? ASSESSMENT: ? BI-RADS BI-RADS 1 - Negative ? RECOMMENDATION: ?? Routine annual mammography screening. ? 1 year F/U ? This examination should not preclude the clinical evaluation of a ?? suspicious palpable abnormality. ? This patient's information was entered into a reminder system with a ?? target due date for their next mammogram. ? Dictated By: ?Betty Miranda MD ? Signed By: ?<Electronically signed by Betty Miranda MD in OV> ? 07/13/235 ? DD/ 1040 ? TD/TT: ? Bow Tacker: ? Procedure Note Naveen, Image - 07/13/2023 [facility] [address] [place] [address] Mammography Report Signed Patient: Margaret Wright TMR#: [id number] 54 : 3Acct:[id number] Age/Sex: 82 / FADM Date: 06/18/23 Loc: HO.MAMMO Attending Dr: Dedra Arzola MD Ordering Physician: Dedra Arzola MDResults: 1Negati ve Date of Service: 06/18/23Follow Up: 1 Year From Orig inal Mammogram Procedure(s): MM tomosynthesis screening BI Accession Number(s): [id number] cc: Dedra Arzola MD EXAMINATION: MM SCREENING DIGITAL BREAST TOMOSYNTHESIS, BILATERAL CLINICAL INFORMATION: Screening. Asymptomatic. COMPARISON: Mammography: This study is compared with prior exams dating back to 2019. TECHNIQUE: Digital breast tomosynthesis is performed in both the craniocaudal and mediolateral oblique views along with computer-aided detection (CAD). Synthesized 2D images are generated from the tomosynthesis. FINDINGS: The breasts are heterogeneously dense, which may obscure small masses (ACR BI-RADS breast composition Category c). There are no significant masses, abnormal calcifications, or other abnormalities. MM/MM tomosynthesis screening BI IMPRESSION: No mammographic evidence of malignancy. ASSESSMENT: BI-RADS BI-RADS 1 - Negative RECOMMENDATION: Routine annual mammography screening. 1 year F/U This examination should not preclude the clinical evaluation of a suspicious palpable abnormality. This patient's information was entered into a reminder system with a target due date for their next mammogram. Dictated By: Betty Miranda MD Signed By: <Electronically signed by Betty Miranda MD in OV> 07/13/23 1205 DD/ 1040 TD/TT: Bow Tacker: Dedra Arzola MD IMG BI PROCEDURES Final Result from Last 3 Months or Most Recently Relevant to Health Maintenance Insurance [facility] STANDARD MEDICARE DENTAL - HSN FULL (MEDICAID) Care Teams Electrophysiology Scientist Relationship Specialty Start Date End Date Dedra Arzola MD [address] [place] [phone] PCP - General Family Medicine 04/06/12
--- OUTSIDE RECORDS SUMMARY | 2024-06-23 12:35 | XMS_ITS | Encounter Summary ---
Author Organization [employer] Address [address] [facility] 7t [place] [address] Care Team Providers Care Toy Packer Name Role Phone Dedra Arzola MD Primary Care Provider [phone] Encounter Details Date Type Department Care Team ([facility] st Contact Info) Description 10/16/2022 Orders Only [facility] MED & PEDS [address] [place] [address] Kely Townsend LPN Social History Tobacco Use Types Packs/Day [...] on filedocumented in this encounter Care Teams Toy Packer Relationship Specialty Start Date End Date Dedra Arzola MD [address] [place] [phone] PCP - General Family Medicine 04/06/12 documented as of this encounter
== END 2024-06-23 11:28 | disposition home or self-care (01) ==
LOC: HO.MAMMO 11:27
PROVIDERS: PCP Student in an Organized Health Care Education/Training Program; Visit Provider Student in an Organized Health Care Education/Training Program
DX: Z12.31 Encounter for screening mammogram for malignant neoplasm of breast (principal)
CPT/HCPCS: 77063; 77067

== ENCOUNTER → 2024-06-23 11:45 | Outpatient (BNV) | payer MEDICARE, MEDICAID, SELFPAY | PROVIDERS: PCP Student in an Organized Health Care Education/Training Program; Visit Provider Internal Medicine | DX: Z12.31 Encounter for screening mammogram for malignant neoplasm of breast (principal) | CPT/HCPCS: 77063; 77067 ==

== ENCOUNTER 2024-08-16 11:28 | Outpatient (REF) | payer MEDICARE, MEDICAID, SELFPAY ==
[2024-08-16 11:47] LABS: MANUAL DIFF FLAG NO
[2024-08-16 11:57] LABS: Basophils Absolute Auto 0.1 X10*3/uL (0.0-0.2); Basophils Percent Auto 1.1 % (0-2); Eosinophils Absolute Auto 1.4 X10*3/uL (0.0-0.4); Eosinophils Percent Auto 14.4 % (0-4); Hematocrit 37.2 % (37.0-47.0); Hemoglobin 12.7 g/dl (12.0-16.0); Imm Gran Abs Auto 0.04 X10*3/uL (0.00-0.03); Imm Gran Pct Auto 0.4 % (0.0-0.4); Lymphocytes Absolute Auto 2.6 X10*3/uL (1.2-4.9); Lymphocytes Percent Auto 26.6 % (20-40); Mean Corpuscular HGB Conc 34.1 g/dl (31.0-35.0); Mean Corpuscular Hemoglobin 31.4 pg (27.0-33.0); Mean Corpuscular Volume 92.1 fL (80.0-98.0); Mean Platelet Volume 7.9 fL (9.4-12.3); Monocytes Absolute Auto 0.7 X10*3/uL (0.1-1.2); Monocytes Percent Auto 7.3 % (2-11); Neutrophils Absolute Auto 4.9 x10*3/uL (2.0-8.3); Neutrophils Percent Auto 50.2 % (45-73); Platelet Count 239 X10*3/uL (160-400); Red Blood Count 4.04 X10*6/uL (4.20-5.50); Red Cell Distribution Width 12.4 % (11.0-16.0); White Blood Count 9.8 X10*3/uL (4.8-10.8)
[2024-08-16 12:16] LABS: Anion Gap 16 (12-20); Blood Urea Nitrogen 29 mg/dL (9-16); Calcium 9.9 mg/dL (8.4-10.2); Carbon Dioxide 26 mmol/L (22-29); Chloride 100 mmol/L (96-108); Estimated Glomerular Filt Rate 50; Glucose Random 100 mg/dL (60-115); Potassium 3.5 mmol/L (3.3-5.1); Sodium 138 mmol/L (135-145)
--- OUTSIDE RECORDS SUMMARY | 2024-08-16 13:55 | XMS_ITS | Encounter Summary ---
Author Organization [employer] Address [address] [facility] [address]t [place] [address] Care Team Providers Care Eye Technician Name Role Phone Dedra Arzola MD Primary Care Provider Encounter Details Date Type Department Care Team (Late Contact Info) Description 08/06/2022 Orders Only [facility] MED & PEDS [address] [place], [place] [phone] Dedra Arzola MD [address] [place], [place] [phone] Social History Tobacco Use Types Packs/Day Years [...] as of this encounter Plan of Treatment Upcoming Encounters Date Type Department Care Team (Late Contact Info) Description 09/11/2024 9:15 AM EDT Office Visit [facility] MED & PEDS [address] [place], [place] [phone] Dedra Arzola MD [address] [place], [place] [phone] documented as of this encounter Visit Diagnoses Not on filedocumented in this encounter Care Teams Eye Technician Relationship Specialty Start Date End Date Dedra Arzola MD [address] [place] [phone] PCP - General Family Medicine 04/06/12 documented as of this encounter
--- OUTSIDE RECORDS SUMMARY | 2024-08-16 13:55 | XMS_ITS | Encounter Summary ---
Author Organization [employer] Address [address] [facility] 7t [place] [address] Care Team Providers Care Advisor To Command In Combat Name Role Phone Dedra Arzola MD Primary Care Provider [phone] Reason for Visit * Reason Onset Date Comments Med Refill 06/02/2023 Encounter Details Date Type Department Care Team ([facility] Contact Info) Description 06/02/2023 Telephone [facility] MED & PEDS [address] [place], [place] [phone] Dedra Arzola MD [address] [place], [place] [phone] Med Refill Social History Tobacco Use Types [...] 5 MG tablet To be sent to: [facility] - [place], [place] - [address] [place] [address] documented in this encounter Plan of Treatment Upcoming Encounters Date Type Department Care Team (Late st Contact Info) Description 09/11/2024 9:15 AM EDT Office Visit [facility] MED & PEDS [address] [place] [address] Dedra Arzola MD [address] [place] [address] documented as of this encounter Visit Diagnoses Not on filedocumented in this encounter Additional Health Concerns Assessment Noted Time PHQ-9 Depression Total Score: 4 01/21/20 23 10:06 AM EDT documented as of this encounter Care Teams Advisor To Command In Combat Relationship Specialty Start Date End Date Dedra Arzola MD [address] [place] [phone] PCP - General Family Medicine 04/06/12 documented as of this encounter
--- OUTSIDE RECORDS SUMMARY | 2024-08-16 13:55 | XMS_ITS | Encounter Summary ---
Author Organization [employer] Address [address] [facility] 7t [place] [address] Care Team Providers Care Machine Operator Picker Name Role Phone Dedra Arzola MD Primary Care Provider [phone] Encounter Details Date Type Department Care Team (Latest Contact Info) Description 09/12/[address] [facility] CONVERSIONS Dental, Provider, DDS Social [...] Description 09/11/2024 9:15 AM EDT Office Visit [facility] MED & PEDS [address] [place] [address] Dedra Arzola MD [address] [place] [address] documented as of this encounter Visit Diagnoses Not on filedocumented in this encounter Care Teams Machine Operator Picker Relationship Specialty Start Date End Date Dedra Arzola MD [address] [place] [phone] PCP - General Family Medicine 04/06/12 documented as of this encounter
--- OUTSIDE RECORDS SUMMARY | 2024-08-16 13:55 | XMS_ITS | Encounter Summary ---
Author Organization [employer] Address [address] [facility] 7t [place] [address] Care Team Providers Care Topology Professor Name Role Phone Dedra Arzola MD Primary Care Provider [phone] Encounter Details Date Type Department Care Team (Latest Contact Info) Description 05/13/2018 Abstract [facility] CONVERSIONS Dental, Provider, DDS Social History [...] Description 09/11/2024 9:15 AM EDT Office Visit [facility] CHC MED & PEDS [address] [place] [address] Dedra Arzola MD [address] [place] [address] documented as of this encounter Visit Diagnoses Not on filedocumented in this encounter Care Teams Topology Professor Relationship Specialty Start Date End Date Dedra Arzola MD [address] [place] [phone] PCP - General Family Medicine 04/06/12 documented as of this encounter
--- OUTSIDE RECORDS SUMMARY | 2024-08-16 13:55 | XMS_ITS | Encounter Summary ---
Author Organization [employer] Address [facility] [address] [place] [address] Care Team Providers Care Compliance Monitor Name Role Phone Dedra Arzola MD Primary Care Provider [phone] Encounter Details Date Type Department Care Team ([facility] st Contact Info) Description 09/09/2023 Orders Only [facility] CHC MED & PEDS [address] [place] [address] Dedra Arzola MD [address] [place] [address] Social History Tobacco Use Types Packs/Day Years [...] the past 12 months, has t he [employer], gas, oil or water company threatened to [...] Description 09/11/2024 9:15 AM EDT Office Visit [facility] MED & PEDS [address] [place] [address] Dedra Arzola MD [address] [place] [address] documented as of this encounter Visit Diagnoses Not on filedocumented in this encounter Additional Health Concerns Assessment Noted Time PHQ-9 Depression Total Score: 4 01/21/20 23 10:06 AM EDT documented as of this encounter Care Teams Compliance Monitor Relationship Specialty Start Date End Date Dedra Arzola MD [address] [place] [phone] PCP - General Family Medicine 04/06/12 documented as of this encounter
--- OUTSIDE RECORDS SUMMARY | 2024-08-16 13:55 | XMS_ITS | Encounter Summary ---
Author Organization [employer] Address [address] [facility] 7t [place] [address] Care Team Providers Care Precision Grinder Name Role Phone Dedra Arzola MD Primary Care Provider [phone] Reason for Visit * Reason Comments Med Refill Encounter Details Date Type Department Care Team (Late st Contact Info) Description 01/09/2023 Refill [facility] MED & PEDS [address] [place], [place] [phone] Hernando Patel MD [address] [place], [place] [phone] Primary hypertension Social History Tobacco Use Types [...] 9:15 AM EDT Office Visit [facility] MED & PEDS [address] [place], [place] [phone] Dedra Arzola MD [address] [place], [place] [phone] documented as of this encounter Visit Diagnoses Diagnosis Primary hypertension Unspecified essential hypertension documented in this encounter Care Teams Precision Grinder Relationship Specialty Start Date End Date Dedra Arzola MD [address] [place] [address] PCP - General Family Medicine 04/06/12 documented as of this encounter
--- OUTSIDE RECORDS SUMMARY | 2024-08-16 13:55 | XMS_ITS | Encounter Summary ---
Author Organization [facility] Address [address] [place] [address] Phone Care Team Providers Care Relief Worker Name Role Phone Dedra Arzola MD Primary Care Provider [phone] Encounter Details Date Type Department Care Team (Late st Contact Info) Description 09/10/2020 Orders Only [facility] [address] [place] [address] ProviderTony MD [address] [place] [address] Social History Tobacco Use Types Packs/Day [...] on filedocumented in this encounter Care Teams Relief Worker Relationship Specialty Start Date End Date Dedra Arzola MD [address] [place] [address] PCP - General 05/13/20 documented as of this encounter
--- OUTSIDE RECORDS SUMMARY | 2024-08-16 13:55 | XMS_ITS | Encounter Summary ---
Author Organization [employer] Address [address] [place] [address] 7t [place] [address] Care Team Providers Care Sales Market Leader Name Role Phone Dedra Arzola MD Primary Care Provider [phone] Encounter Details Date Type Department Care Team (Late st Contact Info) Description 11/12/2022 Orders Only [facility] MEDICINE [address] [place] [address] Tricai Shoemaker LPN Social History Tobacco Use Types [...] Description 09/11/2024 9:15 AM EDT Office Visit [facility] CHC MED & PEDS [address] [place] [address] Dedra Arzola MD 505 [place] [address] documented as of this encounter Visit Diagnoses Not on filedocumented in this encounter Care Teams Sales Market Leader Relationship Specialty Start Date End Date Dedra Arzola MD [address] [place] [address] PCP - General Family Medicine 04/06/12 documented as of this encounter
--- OUTSIDE RECORDS SUMMARY | 2024-08-16 13:55 | XMS_ITS | Encounter Summary ---
Author Organization [employer] Address [address] [facility] 7t [place] [address] Care Team Providers Care Manager Wealth Management Name Role Phone Dedra Arzola MD Primary Care Provider [phone] Reason for Visit * Reason Comments Med Refill Encounter Details Date Type Department Care Team ([facility] st Contact Info) Description 07/21/2024 Refill [facility] CHC MED & PEDS [address] [place], [place] [phone] Dedra Arzola MD 505 [place] [address] Insomnia, unspecified type Social History Tobacco Use [...] Description 09/11/2024 9:15 AM EDT Office Visit [facility] MED & PEDS [address] [place] [address] Dedra Arzola MD [address] [place] [address] documented as of this encounter Visit Diagnoses Diagnosis Insomnia, unspecified type documented in this encounter Additional Health Concerns Assessment Noted Time PHQ-9 Depression Total Score: 4 01/21/20 23 10:06 AM EDT documented as of this encounter Care Teams Manager Wealth Management Relationship Specialty Start Date End Date Dedra Arzola MD [address] [place] [phone] PCP - General Family Medicine 04/06/12 documented as of this encounter
--- OUTSIDE RECORDS SUMMARY | 2024-08-16 13:55 | XMS_ITS | Encounter Summary ---
Author Organization [employer] Address [address] [facility] [address] [place] [address] Care Team Providers Care Glue Spreading Machine Operator Name Role Phone Dedra Arzola MD Primary Care Provider [phone] Encounter Details Date Type Department Care Team ([facility] st Contact Info) Description 02/12/2023 Orders Only [facility] CHC MED & PEDS [address] [place] [address] Dedra Arzola MD 505 [place] [address] Social History Tobacco Use Types Packs/Day Years [...] the past 12 months, has t he [employer], gas, oil or water company threatened to [...] Description 09/11/2024 9:15 AM EDT Office Visit [facility] MED & PEDS [address] [place] [address] Dedra Arzola MD 505 [place] [address] documented as of this encounter Visit Diagnoses Not on filedocumented in this encounter Additional Health Concerns Assessment Noted Time PHQ-9 Depression Total Score: 4 01/21/20 23 10:06 AM EDT documented as of this encounter Care Teams Glue Spreading Machine Operator Relationship Specialty Start Date End Date Dedra Arzola MD [address] [place] [phone] PCP - General Family Medicine 04/06/12 documented as of this encounter
--- OUTSIDE RECORDS SUMMARY | 2024-08-16 13:55 | XMS_ITS | Clinical Summary ---
Author Organization [employer] Address 75 [facility] 7t [place] [address] Care Team Providers Care Code Machine Operator Name Role Phone Dedra Arzola MD Primary Care Provider [phone] Allergies Active Allergy Reactions Criticality Noted Date Comments Gabapentin Dizziness 07/20/2022 Hyoscyamine 06/02/2010 Other reaction(s): unspecified Penicillins Rash Low 07/20/2022 Statins Hives 06/02/2010 Sulfa Antibiotics 04/12/2012 Medications glucose blood (FREESTYLE LITE) test strip USE 1 STRIP by DIRECTED route every day 2020 Active acetaminophen (Tylenol) 500 MG tablet Take 2 tablets by mouth every 4 (four) hours. 2021 Active betamethasone dipropionate 0.05 % cream Apply 1 application topically every 12 (twelve) hours. 2020 Active Tmcfewo-Aumzqslkjm-Cmg dias D (Citracal +D3) 250-107-500 MG-MG-UNIT chewable tablet Acti ve Lidocaine 4 % patch use 1 patch every 12 hrs 2021 Active Multiple Vitamins-Minerals (PreserVision AREDS 2) capsule Active traMADol (Ultram) 50 MG tablet Take 1 tablet by mouth every 12 (twelve) hours. 2021 Active cloNIDine (Catapres) 0.1 MG tablet TAKE ONE TABLET EVERY MORNING 30 tablet 3 2022 Active TRUEplus Lancets 33G miscIndications:Type 2 diabetes mellitus without complications (CMS/HCC) USE ONE EVERY DAY 100 each 11 2023 Active fluticasone (Flonase) 50 MCG/ACT nasal sprayIndications:Aller gy, unspecified, sequela INHALE 2 SPRAYS IN EACH NOSTRIL ONCE DAILY IN THE MORNING 16 g 2023 Active sertraline (Zoloft) 100 MG tablet TAKE ONE TABLET EVERY MORNING 90 tablet 4 2023 Active Aspirin Low Dose 81 MG chewable tablet CHEW ONE TABLET EVERY MORNING 60 tablet 4 2023 Active FREESTYLE LITE test stripIndications:Type 2 diabetes mellitus without complications (CMS/HCC) USE ONE TO TEST BLOOD SUGAR EVERY DAY 50 strip 11 2023 Active DULoxetine (Cymbalta) [address] capsuleIndications:Sca lp itch Take 1 capsule (40 mg) by mouth Once per day. Do not crush or chew. 30 capsule 01/10 Active hydroCHLOROthiazide (HYDRODiuril) 25 MG tablet TAKE ONE TABLET EVERY MORNING 90 tablet 1 2023 Active cetirizine (ZyrTEC) 10 MG tabletIndications:Lion rgy, sequela TAKE ONE TABLET EVERY NIGHT AT BEDTIME 30 tablet 11 2024 Active amLODIPine (Norvasc) 10 MG tabletIndications:Prim miguel hypertension TAKE ONE TABLET EVERY MORNING 90 tablet 1 2024 Active levothyroxine (Synthroid, Levoxyl) 50 MCG tabletIndications:Hypo thyroidism, unspecified type TAKE ONE TABLET EVERY MORNING 30 tablet 1 2024 Active zolpidem (Ambien) 5 MG tabletIndications:Inso mnia, unspecified type TAKE ONE TABLET AT BEDTIME NEEDED FOR SLEEP 30 tablet 2024 Active rosuvastatin (Crestor) 10 MG tabletIndications:Pure hypercholesterolemia TAKE ONE TABLET EVERY NIGHT AT BEDTIME 90 tablet 1 2024 Active Vascepa 1 g capsuleIndications:Mario or depressive disorder with current active episode, unspecified depression episode severity, unspecified whether recurrent TAKE TWO CAPSULES TWICE DAILY IN THE MORNING AND EVENING WITH FOOD 360 capsule 2024 Active rosuvastatin (Crestor) 10 MG tablet TAKE ONE TABLET EVERY NIGHT AT BEDTIME 90 tablet 1 08/01 Discontinued Icosapent Ethyl (Vascepa) 1 g capsuleIndications:Mario or depressive disorder with current active episode, unspecified depression episode severity, unspecified whether recurrent TAKE TWO CAPSULES TWICE DAILY IN THE MORNING AND EVENING WITH FOOD 360 capsule 08/01 Discontinued levothyroxine (Synthroid, Levoxyl) 50 MCG tabletIndications:Hypo thyroidism, unspecified type TAKE ONE TABLET EVERY MORNING 30 tablet 1 07/24 Discontinued zolpidem (Ambien) 5 MG tabletIndications:Inso mnia, unspecified type TAKE ONE TABLET AT BEDTIME NEEDED FOR SLEEP 30 tablet 07/24 Discontinued( Reorder (will not trigger notification to Pharmacy)) Active Problems Problem Noted Date Diagnosed Date Type 2 diabetes mellitus wit hout complication, without long-term current use of insulin 08/05/2022 Stage 3 chronic kidney disease 09/10/2020 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 Hypothyroidism 11/10/2012 Benign essential hypertension 07/27/2011 Pure hypercholesterolemia 07/27/2011 Gastroesophageal reflux disease 07/27/2011 Encounters Date Type Department Care Team Description 07/31/2024 Refill [facility] MED & PEDS [address] [place] [address] Karrie Robin MD Major depressive disorder with current active episode, unspecified depression episode severity, unspecified whether recurrent 07/28/2024 Refill [facility] MED & PEDS [address] [place] [address] Dedra Arzola MD Pure hypercholesterolemia 07/24/2024 Refill [facility] MED & PEDS [address] [place] [address] Ketty Dawson MD Hypothyroidism, unspecified type; Insomnia, unspecified type 07/21/2024 Refill [facility] MED & PEDS [address] [place] [address] Dedra Arzola MD Insomnia, unspecified type 07/21/2024 Telephone [facility] MED & PEDS [address] [place] [address] Dedra Arzola MD Med Refill 07/21/2024 Refill [facility] MED & PEDS [address] [place] [address] Dedra Arzola MD Insomnia, unspecified type 07/20/2024 9:00 AM EDT Office Visit [facility] ADULT DENTAL [address] [place] [address] Luis Kayley, DDS 07/20/2024 Travel 07/04/2024 9:00 AM EST Office Visit [facility] OPTOMETRY [address] [place] [address] Linnette Calderon, OD 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); Low vision right eye category 1, low vision left eye category 2 07/04/2024 Travel 06/29/2024 11:30 AM EST Office Visit [facility] ADULT DENTAL [address] [place] [address] Steven Claudiojermaine 06/23/2024 Orders Only [facility] MED & PEDS [address] [place] [address] Dedra Arzola MD 06/20/2024 Refill [facility] MED & PEDS [address] [place] [address] Dedra Arzola MD Primary hypertension; Insomnia, unspecified type 05/29/2024 Refill [facility] MED & PEDS [address] [place] [address] Dedra Arzola MD Hypothyroidism, unspecified type 05/27/2024 Refill [facility] MED & PEDS [address] [place] [address] Dedra Arzola MD Allergy, sequela 05/26/2024 11:15 AM EST Office Visit [facility] OPTOMETRY [address] [place] [address] Linnette Espinal, OD 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 (Primary Dx); Type 2 diabetes mellitus without ophthalmic manifestations ([facility]) 05/26/2024 Travel 05/23/2024 Telephone [facility] MED & PEDS [address] [place] [address] Dedra Arzola MD Med Refill 05/23/2024 Refill [facility] MED & PEDS [address] [place] [address] Dedra Arzola MD Insomnia, unspecified type from Last 3 Months Immunizations Name Administration [...] Sign Reading Time Taken Comments Blood Pressure 122/70 07/20/2024 9:05 AM EDT Pulse 78 03/13/2024 9:46 AM EST Temperature [...] 03/13/2024 9:46 AM EST Plan of Treatment Upcoming Encounters Date Type Department Care Team (Late st Contact Info) Description 09/11/2024 9:15 AM EDT Office Visit [facility] MED & PEDS [address] [place] [address] Dedra Arzola MD [address] [place] [address] Health Maintenance Due Date Last Done Comments Dental X-Ray: Full Mouth 1940 RSV Patients and Patients Aged 60 years or older (1 - 1-dose 75+ series) 2017 Dental Oral Exam 09/16/2023 03/17/2023 Dental Prophylaxis 09/16/2023 03/17/2023, 07/20/2022 Depression Screening 01/21/2024 01/20/2023, 01/21/20 Dental X-Ray: Bitewings 03/18/2024 03/17/2023 Diabetes: Hemoglobin A1C 09/10/2024 024, 09/28/2023, 01/20/2023, Additional history exists Diabetes: Foot Exam 09/27/2024 09/28/2023, 09/28/2023, 09/28/2023, Additional history exists Diabetes: Urine Protein Screening 09/27/2024 09/28/2023, 08/05/2022, 02/14/2021 Alcohol/Substance Use Screening 03/13/2025 03/13/2024 COVID-19 Vaccine ( season) 2025 04/16/2022, 09/09/2021, 01/29/2021, Additional history exists Postponed from 01/02/2024 (Patient Refused) Lipid Panel 03/13/2025 03/13/2024, 09/01, 01/21/2023, Additional history exists SDOH Screening 03/13/2025 03/13/2024 DTaP/Tdap/Td Vaccines (2 - Td or Tdap) 06/18/2025 06/18/2015 Mammogram 06/23/2025 06/23/2024, 06/03, 06/12/2022, Additional history exists Tobacco Screening 07/04/2025 07/04/2024 Eye Exam 05/26/2026 05/26/2024, 05/04, 05/26/2024, Additional [...] Procedure Name Priority Date/Time Associated Diagnosis Comments 9 LI RESIN-BASED COMPOSITE - 2 SURF, ANTERIOR Routine 07/20/2024 9:00 AM EDT 8 JOSÉ ANTONIO RESIN-BASED COMPOSITE - 3 SURF, ANTERIOR Routine 07/20/2024 9:00 AM EDT 7 MFL RESIN-BASED COMPOSITE - 3 SURF, ANTERIOR Routine 07/20/2024 9:00 AM EDT CASE PRESENTATION, DETAILED AND EXTENSIVE TREATMENT PLANNING Routine 06/29/2024 11:30 AM EST INTRAORAL - PERIAPICAL FIRST RADIOGRAPHIC IMAGE Routine 06/29/2024 11:30 AM EST LIMITED ORAL EVALUATION - PROBLEM FOCUSED Routine 06/29/2024 11:30 AM EST BI MAMMOGRAM SCREENING TOMOSYNTHESIS BILATERAL Routine 06/23/2024 11:35 AM EST OCT, RETINA - OU - BOTH EYES Routine 05/26/2024 11:15 AM EST 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 HEMOGLOBIN A1C Routine 03/13/2024 10:08 AM EST Type 2 diabetes mellitus without complication, without long-term current use of insulin ([facility]/HCC) LIPID PANEL, STANDARD Routine 03/13/2024 10:08 AM EST Type 2 diabetes mellitus without complication, without long-term current use of insulin ([facility]/HCC) Benign essential hypertension CREATININE, RANDOM URINE Routine 09/28/2023 10:00 AM EDT PROPHYLAXIS - ADULT Routine 03/17/2023 9 :00 AM EST BITEWINGS - 4 RADIOGRAPHIC IMAGES Routine 03/17/2023 9:00 AM EST PERIODIC ORAL EVALUATION - ESTABLISHED PATIENT Routine 03/17/2023 9:00 AM EST from Last 3 Months or Most Recently Relevant to Health Maintenance Results * BI Mammogram Screening Tomosynthesis Bilateral (06/23/2024 11:35 AM EST) Anatomical Region Laterality Modality Breast Bilateral Mammography 06/23/2024 11:3 5 AM EST Narrative 07/01/2024 10:15 AM EST ? [facility] ? [address] ?[place] [address] ? Mammography Report ? Signed ? Patient: Ethier,Margaret T ?MR#: [id number] ?? 54 ? : 1940 ?Acct:[id number] ? Age/Sex: 83 / F ?ADM Date: 06/23/24 ? Loc: HO.MAMMO ? Attending Dr: Dedra Galindo Ness MD ? Ordering Physician: Dedra Arzola MD ?Results: 1Negati ?? ve ? Date of Service: 06/23/24 ?Follow Up: 1 Year From Orig ?? inal Mammogram ? Procedure(s): MM tomosynthesis screening BI ?? Accession Number(s): [id number] ? cc: Ness,Dedra Galindo MD ? EXAMINATION: ?? MM SCREENING DIGITAL BREAST TOMOSYNTHESIS, BILATERAL ? CLINICAL INFORMATION: ? Screening. Asymptomatic. ? COMPARISON: ?? Mammography: Comparison is made with available priors ? TECHNIQUE: ?? Digital breast mammography with tomosynthesis is performed in both the ?? craniocaudal and mediolateral oblique views along with computer-aided ?? detection (CAD). ? FINDINGS: ?? The breasts are heterogeneously [...] due date for their next mammogram. ? Electronically signed by: ??Alia Conley DO ??07/01/2024 10:11 AM EST ? Dictated By: ?Alia Conley DO ? Signed By: ?<Electronically signed by Alia Conley, DO in OV> ? 07/01/24 1011 ? DD/ 1135 ? TD/TT: 06/23/24 1152 ? Community Planning Technician: ? Procedure Note Naveen, Image - 07/01/2024 [facility] [address] [place] [address] Mammography Report Signed Patient: Margaret Wright TMR#: [id number] 54 : 3Acct:[id number] Age/Sex: 83 / FADM Date: 06/23/24 Loc: HO.MAMMO Attending Dr: Dedra Arzola MD Ordering Physician: Dedra Arzola MDResults: 1Negati ve Date of Service: 06/23/24Follow Up: 1 Year From Orig inal Mammogram Procedure(s): MM tomosynthesis screening BI Accession Number(s): [id number] cc: Dedra Arzola MD EXAMINATION: MM SCREENING DIGITAL BREAST TOMOSYNTHESIS, BILATERAL CLINICAL INFORMATION: Screening. Asymptomatic. COMPARISON: Mammography: Comparison is made with available priors TECHNIQUE: Digital breast mammography with tomosynthesis is performed in both the craniocaudal and mediolateral oblique views along with computer-aided detection (CAD). FINDINGS: The breasts are heterogeneously dense, which [...] target due date for their next mammogram. Electronically signed by: Alia Conley DO 07/01/2024 10:11 AM EST RP Dictated By: Alia Conley DO Signed By: <Electronically signed by Alia Conley DO in OV> 07/01/24 1011 DD/ 1135 TD/TT: 06/23/24 1152 Community Planning Technician: Dedra Arzola MD IMG BI PROCEDURES Edited Result - Final * OCT, Retina - OU - Both [...] AM EST) Hemoglobin A1c 5.4 <6.0 % [facility] Comment:Hemoglobin A1C Refer ence Range Adults: 4.8 - 6.0 % Non diabetic: < 6.0 % Goal: < 7.0 %Additional Action Suggested: > 8.0 %Note: Hemoglobin A1c results are invalid for patients with abnormal amounts of HbF. Blood transfusions may impact the HbA1c concentration in the patient sample. Estimated Average Glucose 108 mg/dL [facility] Comment:eAG = Estimated ave rage glucose which is %A1C expressed asaverage glucose, using the formula of the H1V-[id number] Glucose study (ADAG), Diabetes Care, Vol.31,#8,Dec. 2007 Blood Venous blood specimen / Unknown 03/13/2024 10:08 AM EST 03/13/2024 2:03 PM EST us Dedra Arzola MD LAB BLOOD ORDERABLES Final Resul t [facility] [address] [place] [phone] * (ABNORMAL) Lipid Panel, Standard (03/13/2024 10:08 AM EST) Triglycerides 174(H) <150 mg/dL [facility] Comment:Desirable Triglyceri de: less than 150 mg/dLBorderline High Triglyceride 150-199 mg/dLHigh Triglyceride: 200-499 mg/dLVery High Triglyceride: greater than or equal to 5OO mg/dL Cholesterol 169 <200 mg/dL [facility] Comment:Desirable Cholestero l: less than 200 mg/dLBorderline High Cholesterol: 200-239 mg/dLHigh Cholesterol: greater than 239 mg/dL LDL Cholesterol Calculated 91 <100 mg/dL [facility] Comment:Desirable LDL: less than 100 mg/dLNear Optimal/Above Optimal LDL: 110- 129 mg/dLBorderline High LDL: 130-159 mg/dLHigh LDL: 160-189 mg/dLVery High LDL: greater than or equal to 190 mg/dL HDL Cholesterol 44 >40 mg/dL [facility] Comment:Desirable HDL: great er than 40 mg/dL Note: This HDL assay may give artificially low results in patients with liver disease. Blood Venous blood specimen / Unknown 03/13/2024 10:08 AM EST 03/13/2024 2:03 PM EST us Dedra Arzola MD LAB BLOOD ORDERABLES Final Resul t Performing Organization Address [facility]/ZIP Co de Phone Number [facility] [address] [place] [phone] * Creatinine, Random Urine (09/28/2023 10:00 AM EDT) Creatinine, Urine 54.46 mg/dL [facility] 09/28/2023 10:0 0 AM EDT 09/28/2023 2:44 PM EDT us Generic External Data Provider LAB URINE ORDERAB LES Final Result Performing Organization Address City/[facility] Co de Phone Number [facility] [address] [place] [phone] from Last 3 Months or Most Recently Relevant to Health Maintenance Insurance [facility] MEDICARE DENTAL - HSN FULL (MEDICAID) Care Teams Code Machine Operator Relationship Specialty Start Date End Date Dedra Arzola MD [address] [place] [phone] PCP - General Family Medicine 04/06/12
--- OUTSIDE RECORDS SUMMARY | 2024-08-16 13:55 | XMS_ITS | Clinical Summary ---
Author Organization [facility] Address [address] [facility] [address] [place] [address] Phone Care Team Providers Care Vp Corporate Development Name Role Phone Dedra Arzola MD Primary Care Provider [phone] Allergies Active Allergy Reactions Criticality Noted Date [...] hypercholesterolemia 07/27/2011 Gastroesophageal reflux disease 07/27/2011 Immunizations Immunization Administration Dates Next Due Influenza Split High [...] Due Date Last Done Comments Pneumococcal Vaccine: 50+ Ye ars (2 of 2 - PCV) 10/04/2014 10/04/2013 Diabetes: Ophthalmology Exam 09/16/2022 Diabetes: Pedal Pulse Checked 09/16/2022 Diabetes: Sensory Foot Exam 09/16/2022 Diabetes: Visual Foot Exam 09/16/2022 Diabetes: Hemoglobin A1C 11/04/2022 08/05/2022 Influenza Vaccine (Season Ended) 2025 01/02/20 16 Pneumococcal Vaccine: Peds ( 0 to 5 Years) and At-Risk Patients (6 to 49 Years) Discontinued 10/04/2013 Hepatitis B Vaccine Aged Out No longe r eligible based on patient's age to complete this topic Insurance Medicare Medicaid [place] Medicare Medicaid [place] Care Teams Vp Corporate Development Relationship Specialty Start Date End Date Dedra Arzola MD [address] [place] [phone] PCP - General 05/13/20
--- OUTSIDE RECORDS SUMMARY | 2024-08-16 13:55 | XMS_ITS | Encounter Summary ---
Author Organization [employer] Address [address] [place] [address] 7t [place] [address] Care Team Providers Care Social Media Analyst Name Role Phone Dedra Arzola MD Primary Care Provider [phone] Encounter Details Date Type Department Care Team ([facility] Contact Info) Description 10/16/2022 Orders Only [facility]EDS [address] [place] [address] Kely Townsend LPN Social History Tobacco Use [...] [facility] [address] [place] [address] Dedra Arzola MD 505 [place] [address] documented as of this encounter Visit Diagnoses Not on filedocumented in this encounter Care Teams Social Media Analyst Relationship Specialty Start Date End Date Dedra Arzola MD [address] [place] [phone] PCP - General Family Medicine 04/06/12 documented as of this encounter
--- OUTSIDE RECORDS SUMMARY | 2024-08-16 13:55 | XMS_ITS | Encounter Summary ---
Author Organization [employer] Address [address] [facility] 7t [place] [address] Care Team Providers Care Merchandising Team Lead Name Role Phone Dedra Arzola MD Primary Care Provider [phone] Reason for Visit * Reason Comments Med Refill Encounter Details Date Type Department Care Team ([facility] st Contact Info) Description 07/21/2024 Refill [facility] CH[facility] MED & PEDS [address] [place], [place] [phone] Dedra Arzola MD 505 [place] [address] Insomnia, unspecified type Social History Tobacco Use [...] Description 09/11/2024 9:15 AM EDT Office Visit [facility] MED & PEDS [address] [place] [address] Dedra Arzola MD 505 [place] [address] documented as of this encounter Visit Diagnoses Diagnosis Insomnia, unspecified type documented in this encounter Additional Health Concerns Assessment Noted Time PHQ-9 Depression Total Score: 4 01/21/20 23 10:06 AM EDT documented as of this encounter Care Teams Merchandising Team Lead Relationship Specialty Start Date End Date Dedra Arzola MD [address] [place] [phone] PCP - General Family Medicine 04/06/12 documented as of this encounter
--- OUTSIDE RECORDS SUMMARY | 2024-08-16 13:55 | XMS_ITS | Encounter Summary ---
Author Organization [employer] Address [address] [facility] 7t [place] [address] Care Team Providers Care Marina Sales And Service Supervisor Name Role Phone Dedra Arzola MD Primary Care Provider [phone] Encounter Details Date Type Department Care Team (Latest Contact Info) Description 05/19/2019 Abstract [facility] CONVERSIONS Dental, Provider, DDS Social History Tobacco [...] Description 09/11/2024 9:15 AM EDT Office Visit [facility] CHC MED & PEDS 505 [place] [address] Dedra Arzola MD 505 [place] [address] documented as of this encounter Visit Diagnoses Not on filedocumented in this encounter Care Teams Marina Sales And Service Supervisor Relationship Specialty Start Date End Date Dedra Arzola MD [address] [place] [phone] PCP - General Family Medicine 04/06/12 documented as of this encounter
[2024-08-22 03:29] LABS: Parathyroid Hormone Related Pr 21 pg/mL (11-20)
== END 2024-08-16 11:29 | disposition home or self-care (01) ==
LOC: HO.LAB 11:28
PROVIDERS: Visit Provider Internal Medicine Hypertension Specialist
DX: N18.9 Chronic kidney disease, unspecified (principal)
CPT/HCPCS: 36415; 80048; 83519; 85025

== ENCOUNTER 2024-08-31 10:40 | Outpatient (AMB) | payer MEDICARE, MEDICAID, SELFPAY ==
--- NOTE | 2024-08-31 10:45 | HO.NEPHOV ---
Vital Signs 08/31/24 10:46 Height 5 ft 2 in Weight 153 lb BMI 28.0 BP 142/64 H Blood Pressure Location Rt brachial Position Sitting Intake Visit Reasons: R/s from 08/24/24/ Conf Intake Note: Patient presents for follow up. Allergies Penicillins [PENICILLINS] Allergy (Intermediate, Verified 08/31/24 10:47) RASH Medication List - Last Reconciled 08/31/24 by Tristian French MD amlodipine 10 mg PO QAM aspirin 1 tab PO QAM blood sugar diagnostic As directed calcium citrate-vitamin D3 125-62.5 mg-unit tabs PO cetirizine 10 mg PO BEDTIME duloxetine 20 mg PO DAILY fluticasone propionate 50 mcg/actuation intranasal hydrochlorothiazide 25 mg PO DAILY icosapent ethyl (Vascepa) 2 grams PO BID lancets As directed levothyroxine 50 mcg PO DAILY montelukast 10 mg PO QPM 90 days rosuvastatin 10 mg PO BEDTIME sertraline 100 mg PO DAILY vitamins A,C,J-wvrc-mlaxlv 4,296 mcg-226 mg-90 mg (PreserVision AREDS) 1 cap PO BID zolpidem 5 mg PO BEDTIME HPI Comments Details: Margaret is a pleasant 83-year-old woman with a history of longstanding hypertension and chronic kidney disease. She is here for semiannual follow-up. From renal standpoint she has no specific complaints. No shortness of breath nausea vomiting. No urinary symptoms. She is compliant with her medications. 02/29/24;Overall doing OK ;Now with macular degeneration 08/31/24 : No new issues. No N/v No urinary symptoms Still with some ankle edema ; No dyspnea PFSH Medical History Cough Asthma Allergic rhinitis Surgical History Hx of colonoscopy Family History Daughter Colon cancer Social History Patient Tobacco Use Status: Former Tobacco user Years Smoked: 25 years, quit 41yo Physical Exam Vital Signs: Last Vital Signs BP 142/64 H 08/31/24 10:46 BMI result Body Mass Index 28.0 Const General: comfortable; No acute distress Orientation/consciousness: patient oriented x3 Eyes General: appearance normal, both eyes and all related structures Visual Lundy: normal visual lundy by confrontation Neck Neck: Yes supple and Yes no JVD Resp Effort & Inspection: normal respiratory effort and respiratory effort not decreased Cardio Palpation: no palpable S3 and no palpable S4 Heart sounds: no rubs GI Inspection: Yes normal to inspection Palpation (GI): Soft to palpation Percussion: Yes normal to percussion Auscultation: normal bowel sounds General: Yes no CVA tenderness Back/Spine/Pelvis Back: no CVA tenderness Skin General skin exam: no petechiae and no purpura Neuro General: patient oriented x3 and no focal motor deficits Extrem General: No clubbing and No edema Results Reviewed Nephrology Results: Hgb 12.7 g/dl (12.0-16.0) 08/16/24 WBC 9.8 X10*3/uL (4.8-10.8) 08/16/24 Plt Count 239 X10*3/uL (160-400) 08/16/24 Sodium 138 mmol/L (135-145) 08/16/24 Potassium 3.5 mmol/L (3.3-5.1) 08/16/24 Chloride 100 mmol/L (96-108) 08/16/24 Carbon Dioxide 26 mmol/L (22-29) 08/16/24 BUN 29 mg/dL (9-16) H 08/16/24 Creatinine 1.05 mg/dL (0.5-1.4) 08/16/24 Calcium 9.9 mg/dL (8.4-10.2) 08/16/24 Urine Protein 30 (1+) mg/dL (Neg-Trace) H 09/28/23 Urine Creatinine 54.46 mg/dL 09/28/23 Assessment & Plan Assessment & Plan (1) HTN (hypertension): Code(s): I10 - Essential (primary) hypertension Category: Medical (2) CKD (chronic kidney disease): Code(s): N18.9 - Chronic kidney disease, unspecified Category: Medical Plan Mary is 84-year-old woman with a history of mild CKD in a setting of longstanding hypertension. 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 Overall renal function has been stable. Blood pressure is acceptable. I am not made any changes in her medications She should stay on low-sodium diet. Continue to avoid nephrotoxic agents including NSAIDs. We will continue screen for anemia and secondary hyperparathyroidism. - PHT was 21 All questions were answered Orders: Orders Basic Metabolic Panel 6 Months N18.9 - Chronic kidney disease, unspecified Creatinine Urine 6 Months N18.9 - Chronic kidney disease, unspecified Protein Electrophoresis, Serum 6 Months N18.9 - Chronic kidney disease, unspecified Total Protein Urine Random 6 Months N18.9 - Chronic kidney disease, unspecified UA and rflx microscopic 6 Months N18.9 - Chronic kidney disease, unspecified Complete Blood Count no Diff 6 Months N18.9 - Chronic kidney disease, unspecified Coding Level of Care Code Est Pt Level 4 (51699) Diagnoses HTN (hypertension) I10 CKD (chronic kidney disease) N18.9
[2024-08-31 10:46] VITALS: BP 142/64; BMI 28.0
--- OUTSIDE RECORDS SUMMARY | 2024-08-31 12:12 | XMS_ITS | Encounter Summary ---
Author Organization [employer] Address [address] 7t [place] [address] Care Team Providers Care Textile Artist Name Role Phone Dedra Arzola MD Primary Care Provider [phone] Encounter Details Date Type Department Care Team ([facility] st Contact Info) Description 02/12/2023 Orders Only [facility] CHC MED & PEDS [address] [place] [address] Dedra Arzola MD 505 [place] [address] Social History Tobacco Use Types Packs/Day Years [...] the past 12 months, has t he [employer] gas, oil or water company threatened to [...] Description 09/11/2024 9:15 AM EDT Office Visit [facility] MED & PEDS 505 [place] [address] Dedra Arzola MD 505 [place] [address] documented as of this encounter Visit Diagnoses Not on filedocumented in this encounter Additional Health Concerns Assessment Noted Time PHQ-9 Depression Total Score: 4 01/21/20 23 10:06 AM EDT documented as of this encounter Care Teams Textile Artist Relationship Specialty Start Date End Date Dedra Arzola MD [address] [place] [address] PCP - General Family Medicine 04/06/12 documented as of this encounter
--- OUTSIDE RECORDS SUMMARY | 2024-08-31 12:12 | XMS_ITS | Encounter Summary ---
Author Organization [employer] Address [address] [facility] [address] 7t [place] [address] Care Team Providers Care Gun Perforator Name Role Phone Dedra Arzola MD Primary Care Provider [phone] Reason for Visit * Reason Comments Med Refill Encounter Details Date Type Department Care Team ([facility] st Contact Info) Description 07/21/2024 Refill [facility] CHC MED & PEDS [address] [place], [place] [phone] Dedra Arzola MD 505 [place] [address] Insomnia, unspecified type Social History Tobacco Use [...] 9:15 AM EDT Office Visit [facility] MED & PEDS [address] [place] [address] Dedra Arzola MD 505 [place] [address] documented as of this encounter Visit Diagnoses Diagnosis Insomnia, unspecified type documented in this encounter Additional Health Concerns Assessment Noted Time PHQ-9 Depression Total Score: 4 01/21/20 23 10:06 AM EDT documented as of this encounter Care Teams Gun Perforator Relationship Specialty Start Date End Date Dedra Arzola MD [address] [place] [phone] PCP - General Family Medicine 04/06/12 documented as of this encounter
--- OUTSIDE RECORDS SUMMARY | 2024-08-31 12:13 | XMS_ITS | Encounter Summary ---
Author Organization [employer] Address [address] [facility] 7t [place] [address] Care Team Providers Care Java Technical Manager Name Role Phone Dedra Arzola MD Primary Care Provider [phone] Encounter Details Date Type Department Care Team (Latest Contact Info) Description 05/19/2019 Abstract [facility] CONVERSIONS Dental, Provider, DDS Social [...] Description 09/11/2024 9:15 AM EDT Office Visit [facility] CHC MED & PEDS 505 [place] [address] Dedra Arzola MD 505 [place] [address] documented as of this encounter Visit Diagnoses Not on filedocumented in this encounter Care Teams Java Technical Manager Relationship Specialty Start Date End Date Dedra Arzola MD [address] [place] [address] PCP - General Family Medicine 04/06/12 documented as of this encounter
--- OUTSIDE RECORDS SUMMARY | 2024-08-31 12:13 | XMS_ITS | Encounter Summary ---
Author Organization [employer] Address [address] [facility] 7t [place] [address] Care Team Providers Care Snuff Grinder And Screener Name Role Phone Dedra Arzola MD Primary Care Provider [phone] Reason for Visit * Reason Onset Date Comments Med Refill 06/02/2023 Encounter Details Date Type Department Care Team ([facility] st Contact Info) Description 06/02/2023 Telephone [facility] [facility] CH[facility] MED & PEDS [address] [place], [place] [phone] Dedra Arzola MD 505 [place], [place] [phone] Med Refill Social History Tobacco Use Types [...] 5 MG tablet To be sent to: [facility] - [place], [place] - [address] [place] [address] documented in this encounter Plan of Treatment Upcoming Encounters Date Type Department Care Team (Late st Contact Info) Description 09/11/2024 9:15 AM EDT Office Visit [facility] CH[facility] MED & PEDS [address] [place] [address] Dedra Arzola MD 505 [place] [address] documented as of this encounter Visit Diagnoses Not on filedocumented in this encounter Additional Health Concerns Assessment Noted Time PHQ-9 Depression Total Score: 4 01/21/20 23 10:06 AM EDT documented as of this encounter Care Teams Snuff Grinder And Screener Relationship Specialty Start Date End Date Dedra Arzola MD [address] [place] [address] PCP - General Family Medicine 04/06/12 documented as of this encounter
--- OUTSIDE RECORDS SUMMARY | 2024-08-31 12:13 | XMS_ITS | Encounter Summary ---
Author Organization [employer] Address [address] [facility] 7t [place] [address] Care Team Providers Care Mail Processing Associate Name Role Phone Dedra Arzola MD Primary Care Provider [phone] Reason for Visit * Reason Comments Med Refill Encounter Details Date Type Department Care Team (Late st Contact Info) Description 01/09/2023 Refill [facility] MED & PEDS 505 [place], [place] [phone] Hernando Patel MD 505 [place], [place] [phone] Primary hypertension Social History Tobacco Use Types [...] 9:15 AM EDT Office Visit [facility] MED & PEDS 505 [place], [place] [phone] Dedra Arzola MD 505 [place], [place] [phone] documented as of this encounter Visit Diagnoses Diagnosis Primary hypertension Unspecified essential hypertension documented in this encounter Care Teams Mail Processing Associate Relationship Specialty Start Date End Date Dedra Arzola MD [address] [place] [address] PCP - General Family Medicine 04/06/12 documented as of this encounter
--- OUTSIDE RECORDS SUMMARY | 2024-08-31 12:13 | XMS_ITS | Encounter Summary ---
Author Organization [employer] Address [address] [place] [address] 7t [place] [address] Care Team Providers Care Plastic Bubble Packer Name Role Phone Dedra Arzola MD Primary Care Provider [phone] Encounter Details Date Type Department Care Team ([facility] Contact Info) Description 10/16/2022 Orders Only [facility] MED & PEDS [address] [place] [address] Kely Townsend LPN Social History Tobacco Use [...] 9:15 AM EDT Office Visit [facility] MED & PEDS [address] [place] [address] Dedra Arzola MD 505 [place] [address] documented as of this encounter Visit Diagnoses Not on filedocumented in this encounter Care Teams Plastic Bubble Packer Relationship Specialty Start Date End Date Dedra Arzola MD [address] [place] [address] PCP - General Family Medicine 04/06/12 documented as of this encounter
--- OUTSIDE RECORDS SUMMARY | 2024-08-31 12:13 | XMS_ITS | Clinical Summary ---
Author Organization [employer] Address [address] [facility] 7t [place] [address] Care Team Providers Care Field Reimbursement Manager Name Role Phone Dedra Arzola MD Primary Care Provider [phone] Allergies Active Allergy Reactions Criticality Noted Date [...] topically every 12 (twelve) hours. 2020 Active Gcbsclt-Jettijqbrr-Ixn dias D (Citracal +D3) 250-107-500 MG-MG-UNIT chewable [...] EVERY MORNING 90 tablet 4 2023 Active FREESTYLE LITE test stripIndications:Type 2 diabetes mellitus without complications ([facility]) USE ONE TO TEST BLOOD SUGAR EVERY DAY 50 strip 11 2023 Active DULoxetine (Cymbalta) [address] capsuleIndications:Sca lp itch Take 1 capsule (40 mg) by mouth Once per day. Do not crush or chew. 30 capsule 11 01/10 Active hydroCHLOROthiazide (HYDRODiuril) 25 MG tablet [...] EVERY MORNING 30 tablet 1 2024 Active rosuvastatin (Crestor) 10 MG tabletIndications:Pure hypercholesterolemia TAKE ONE TABLET EVERY NIGHT AT BEDTIME 90 tablet 1 2024 Active Vascepa 1 g capsuleIndications:Mario or depressive disorder with current active episode, unspecified depression episode severity, unspecified whether recurrent TAKE TWO CAPSULES TWICE DAILY IN THE MORNING AND EVENING WITH FOOD 360 capsule 2024 Active zolpidem (Ambien) 5 MG tabletIndications:Inso mnia, unspecified type TAKE ONE TABLET AT BEDTIME NEEDED FOR SLEEP 30 tablet 2024 Active Aspirin Low Dose 81 MG chewable tablet CHEW ONE TABLET EVERY MORNING 90 tablet 1 2024 Active Aspirin Low Dose 81 MG chewable tablet CHEW ONE TABLET EVERY MORNING 60 tablet 4 08/30 Discontinued zolpidem (Ambien) 5 MG tabletIndications:Inso mnia, unspecified type TAKE ONE TABLET AT BEDTIME NEEDED FOR SLEEP 30 tablet 08/17 Discontinued( Reorder (will not trigger notification to Pharmacy)) Active Problems Problem Noted Date Diagnosed Date Type 2 diabetes mellitus wit hout complication, without long-term current use of insulin 08/05/2022 Stage 3 chronic kidney disease 09/10/2020 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 Hypothyroidism 11/10/2012 Benign essential hypertension 07/27/2011 Pure hypercholesterolemia 07/27/2011 Gastroesophageal reflux disease 07/27/2011 Encounters Date Type Department Care Team Description 08/26/2024 Refill [facility] MED & PEDS [address] [place] [address] Dedra Arzola MD 08/17/2024 Refill [facility] MED & PEDS [address] [place] [address] Dedra Arzola MD Insomnia, unspecified type 07/31/2024 Refill [facility] MED & PEDS [address] [place] [address] Karrie Robin MD Major depressive disorder with current active episode, unspecified depression episode severity, unspecified whether recurrent 07/28/2024 Refill [facility] MED & PED[facility] [address] [place] [address] Dedra Arzola MD Pure hypercholesterolemia 07/24/2024 Refill [facility] & PED[facility] [address] [place] [address] Ketty Dawson MD Hypothyroidism, unspecified type; Insomnia, unspecified type 07/21/2024 Refill [facility] & PED[facility] [address] [place] [address] Dedra Arzola MD Insomnia, unspecified type 07/21/2024 Telephone [facility] P[facility] [address] [place] [address] Dedra Arzola MD Med Refill 07/21/2024 Refill [facility] P[facility] [address] [place] [address] Dedra Arzola MD Insomnia, unspecified type 07/20/2024 9:00 AM EDT Office Visit [facility] ADULT DENT[facility] [address] [place] [address] Kayley Luis DDS 07/20/2024 Travel 07/04/2024 9:00 AM EST Office Visit [facility] OPTOMETRY [address] 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); Low vision right eye category 1, low vision left eye category 2 07/04/2024 Travel 06/29/2024 11:30 AM EST Office Visit [facility] CHC ADULT DENTAL [address] [place], [place] [phone] Shanon Janeyolande 06/23/2024 Orders Only [facility] MED & PEDS [address] [place], [place] [phone] Dedra Arzola MD 06/20/2024 Refill [facility] P[facility] [address] [place], [place] [phone] Dedra Arzola MD Primary hypertension; Insomnia, unspecified type from Last 3 Months [...] 9:15 AM EDT Office Visit [facility] MED [facility] PED[facility] [address] [place] [address] Dedra Arzola MD 505 [place] [address] Health Maintenance Due Date Last Done Comments [...] TOMOSYNTHESIS BILATERAL Routine 06/23/2024 11:35 AM EST HEMOGLOBIN A1C Routine 03/13/2024 10:08 AM EST [...] EST Narrative 07/01/2024 10:15 AM EST ? [facility] ? [address] ?[place] [address] ? Mammography Report ? Signed ? Patient: Ethier,Margaret T ?MR#: [id number] ?? 54 ? : 1940 ?Acct:[id number] ? Age/Sex: 83 / F ?ADM Date: //25 ? Loc: HO.MAMMO ? Attending Dr: Dedra Arzola MD ? Ordering Physician: Dedra Arzola MD ?Results: 1Negati ?? ve ? Date of Service: 06/23/24 ?Follow Up: 1 Year From Orig ?? inal Mammogram ? Procedure(s): MM tomosynthesis screening BI ?? Accession Number(s): [id number] ? cc: Dedra Arzola MD ? EXAMINATION: [...] ??Alia Conley DO ??07/01/2024 10:11 AM EST ?? RP ? Dictated By: ?Alia Conley DO ? Signed By: ?<Electronically signed by Alia Conley, DO in OV> ? 07/01/24 1011 ? DD/ 1135 ? TD/TT: 06/23/24 1152 ? Event Marketing Manager: ? Procedure Note Naveen, Image - 07/01/2024 [facility] [address] [place], [place] [address] Mammography Report Signed Patient: Margaret Wright TMR#: [id number] 54 : 3Acct:[id number] Age/Sex: 83 / FADM Date: 06/23/24 Loc: HO.MAMMO Attending Dr: Dedra Arzola MD Ordering Physician: Dedra Arzola MDResults: 1Negati ve Date of Service: 06/23/24Follow Up: 1 Year From Orig inal Mammogram Procedure(s): MM tomosynthesis screening BI Accession Number(s): [id number] cc: Dedra Arzola MD EXAMINATION: MM SCREENING [...] Alia Conley DO 07/01/2024 10:11 AM EST Dictated By: Alia Conley DO Signed By: <Electronically signed by Alia Conley DO in OV> 07/01/24 1011 DD/ 1135 TD/TT: 06/23/24 1152 Event Marketing Manager: Dedra Arzola MD IMG BI PROCEDURES Edited Result - Final * Hemoglobin A1c (03/13/2024 10:08 AM EST) Hemoglobin A1c 5.4 <6.0 % [facility] Comment:Hemoglobin A1C Refer ence Range Adults: 4.8 - 6.0 % Non diabetic: < 6.0 % Goal: < 7.0 %Additional Action Suggested: > 8.0 %Note: Hemoglobin A1c results are invalid for patients with abnormal amounts of HbF. Blood transfusions may impact the HbA1c concentration in the patient sample. Estimated Average Glucose 108 mg/dL [facility] Comment:eAG = Estimated ave rage glucose which is %A1C expressed asaverage glucose, using the formula of the Q9A-CauagdtLjrdwas Glucose study (ADAG), Diabetes Care, Vol.31,#8,Dec. 2007 Blood Venous blood specimen / Unknown 03/13/2024 10:08 AM EST 03/13/2024 2:03 PM EST us Dedra Arzola MD LAB BLOOD ORDERABLES Final Resul t [facility] [address] [place] [phone] * (ABNORMAL) Lipid Panel, Standard (03/13/2024 10:08 AM EST) Triglycerides 174(H) <150 mg/dL [facility] Comment:Desirable Triglyceri de: less than 150 mg/dLBorderline High Triglyceride 150-199 mg/dLHigh Triglyceride: 200-499 mg/dLVery High Triglyceride: greater than or equal to 5OO mg/dL Cholesterol 169 <200 mg/dL [facility] Comment:Desirable Cholestero l: less than 200 mg/dLBorderline High Cholesterol: 200-239 mg/dLHigh Cholesterol: greater than 239 mg/dL LDL Cholesterol Calculated 91 <100 mg/dL [facility] Comment:Desirable LDL: less than 100 [...] ORDERABLES Final Resul t Performing Organization Address City/[facility]/ZIP Co de Phone Number [facility] [address] [place] [phone] * Creatinine, Random Urine (09/28/2023 10:00 AM EDT) Creatinine, Urine 54.46 mg/dL [facility] 09/28/2023 10:0 0 AM EDT 09/28/2023 2:44 PM EDT us Generic External Data Provider LAB URINE ORDERAB LES Final Result Performing Organization Address [facility] Co de Phone Number [facility] [address] [place] [phone] from Last 3 Months or Most Recently Relevant to Health Maintenance Insurance [facility] STAND[facility] MEDICARE DENTAL - HSN FULL (MEDICAID) Care Teams Field Reimbursement Manager Relationship Specialty Start Date End Date Dedra Arzola MD [address] [place] [phone] PCP - General Family Medicine 04/06/12
--- OUTSIDE RECORDS SUMMARY | 2024-08-31 12:13 | XMS_ITS | Clinical Summary ---
Author Organization [facility] Address [address] [facility] [address] [place] [address] Phone Care Team Providers Care Cytopathology Technologist Name Role Phone Dedra Arzola MD Primary Care Provider [phone] Allergies Active Allergy Reactions Criticality Noted Date [...] Medicaid [place] Medicare Medicaid [place] Care Teams Cytopathology Technologist Relationship Specialty Start Date End Date Dedra Arzola MD [address] [place] [phone] PCP - General 05/13/20
--- OUTSIDE RECORDS SUMMARY | 2024-08-31 12:13 | XMS_ITS | Encounter Summary ---
Author Organization [facility] Address [address] [place] [address] Phone Care Team Providers Care Medical Chief Technician Name Role Phone Dedra Arzola MD Primary Care Provider [phone] Encounter Details Date Type Department Care Team (Late st Contact Info) Description 09/10/2020 Orders Only [facility] [address] [place] [address] ProviderTony MD [address] [place] [address] Social History Tobacco Use Types Packs/Day [...] on filedocumented in this encounter Care Teams Medical Chief Technician Relationship Specialty Start Date End Date Dedra Arzola MD [address] [place] [address] PCP - General 05/13/20 documented as of this encounter
--- OUTSIDE RECORDS SUMMARY | 2024-08-31 12:13 | XMS_ITS | Encounter Summary ---
Author Organization [employer] Address [address] [facility] 7t [place] [address] Care Team Providers Care Wage And Hour Investigator Name Role Phone Dedra Arzola MD Primary Care Provider Encounter Details Date Type Department Care Team (Late Contact Info) Description 08/06/2022 Orders Only [facility] MED & PEDS [address] [place], [place] [phone] Dedra Arzola MD [address] [place], [place] [phone] Social History Tobacco Use Types Packs/Day Years [...] 9:15 AM EDT Office Visit [facility] MED & PEDS 505 [place], [place] [phone] Dedra Arzola MD [address] [place], [place] [phone] documented as of this encounter Visit Diagnoses Not on filedocumented in this encounter Care Teams Wage And Hour Investigator Relationship Specialty Start Date End Date Dedra Arzola MD [address] [place] [address] PCP - General Family Medicine 04/06/12 documented as of this encounter
--- OUTSIDE RECORDS SUMMARY | 2024-08-31 12:13 | XMS_ITS | Encounter Summary ---
Author Organization [employer] Address [address] [facility] [address] 7t [place] [address] Care Team Providers Care Financial Services Education Consultant Name Role Phone Dedra Arzola MD Primary Care Provider [phone] Reason for Visit * Reason Comments Med Refill Encounter Details Date Type Department Care Team ([facility] st Contact Info) Description 07/21/2024 Refill [facility] CHC MED & PEDS 505 [place], [place] [phone] Dedra Arzola MD 505 [place] [address] Insomnia, unspecified type Social History Tobacco Use [...] Description 09/11/2024 9:15 AM EDT Office Visit [facility] MED & PEDS 505 [place] [address] Dedra Arzola MD 505 [place] [address] documented as of this encounter Visit Diagnoses Diagnosis Insomnia, unspecified type documented in this encounter Additional Health Concerns Assessment Noted Time PHQ-9 Depression Total Score: 4 01/21/20 23 10:06 AM EDT documented as of this encounter Care Teams Financial Services Education Consultant Relationship Specialty Start Date End Date Dedra Arzola MD [address] [place] [address] PCP - General Family Medicine 04/06/12 documented as of this encounter
--- OUTSIDE RECORDS SUMMARY | 2024-08-31 12:13 | XMS_ITS | Encounter Summary ---
Author Organization [employer] Address 75 [facility] 7t [place] [address] Care Team Providers Care Scheduling Manager Name Role Phone Dedra Arzola MD Primary Care Provider [phone] Encounter Details Date Type Department Care Team (Latest Contact Info) Description 09/12/2021 Abstract [facility] CONVERSIONS Dental, Provider, DDS Social History Tobacco [...] Description 09/11/2024 9:15 AM EDT Office Visit [facility] CHC MED & PEDS 505 [place] [address] Dedra Arzola MD 505 [place] [address] documented as of this encounter Visit Diagnoses Not on filedocumented in this encounter Care Teams Scheduling Manager Relationship Specialty Start Date End Date Dedra Arzola MD [address] [place] [address] PCP - General Family Medicine 04/06/12 documented as of this encounter
--- OUTSIDE RECORDS SUMMARY | 2024-08-31 12:13 | XMS_ITS | Encounter Summary ---
Author Organization [employer] Address [address] [facility] [address] 7t [place] [address] Care Team Providers Care Messenger Floorperson Name Role Phone Dedra Arzola MD Primary Care Provider [phone] Encounter Details Date Type Department Care Team ([facility] st Contact Info) Description 09/09/2023 Orders Only [facility] CHC MED & PEDS 505 [place] [address] Dedra Arzola MD 505 [place] [address] Social History Tobacco Use Types Packs/Day Years [...] the past 12 months, has t he [employer], gas, oil or water company threatened to [...] [facility] 505 [place] [address] Dedra Arzola MD 505 [place] [address] documented as of this encounter Visit Diagnoses Not on filedocumented in this encounter Additional Health Concerns Assessment Noted Time PHQ-9 Depression Total Score: 4 01/21/20 23 10:06 AM EDT documented as of this encounter Care Teams Messenger Floorperson Relationship Specialty Start Date End Date Dedra Arzola MD [address] [place] [address] PCP - General Family Medicine 04/06/12 documented as of this encounter
--- OUTSIDE RECORDS SUMMARY | 2024-08-31 12:13 | XMS_ITS | Encounter Summary ---
Author Organization [employer] Address [address] [place] [address] 7t [place] [address] Care Team Providers Care Geophysical Engineer Name Role Phone Dedra Arzola MD Primary Care Provider [phone] Encounter Details Date Type Department Care Team (Late st Contact Info) Description 11/12/2022 Orders Only [facility] MEDICINE [address] [place] [address] Tricia Shoemaker LPN Social History Tobacco Use [...] Description 09/11/2024 9:15 AM EDT Office Visit [facility] CHC MED & PEDS 505 [place] [address] Dedra Arzola MD 505 [place] [address] documented as of this encounter Visit Diagnoses Not on filedocumented in this encounter Care Teams Geophysical Engineer Relationship Specialty Start Date End Date Dedra Arzola MD 230 [place] [address] PCP - General Family Medicine 04/06/12 documented as of this encounter
--- OUTSIDE RECORDS SUMMARY | 2024-08-31 12:13 | XMS_ITS | Encounter Summary ---
Author Organization [employer] Address 75 [facility] 7t [place] [address] Care Team Providers Care Pulp Mill Supervisor Name Role Phone Dedra Arzola MD Primary Care Provider [phone] Reason for Visit * Reason Comments Med Refill Encounter Details Date Type Department Care Team ([facility] st Contact Info) Description 08/26/2024 Refill [facility] CHC MED & PEDS 505 [place], [place] [phone] Dedra Arzola MD 505 [place] [address] Social History Tobacco Use Types Packs/Day Years [...] is your housing situation today? I have hugomichelle lucas 03/13/[address] you [...] 9:15 AM EDT Office Visit [facility] MED & PEDS 505 [place] [address] Dedra Arzola MD 505 [place] [address] documented as of this encounter Visit Diagnoses Not on filedocumented in this encounter Additional Health Concerns Assessment Noted Time PHQ-9 Depression Total Score: 4 01/21/20 23 10:06 AM EDT documented as of this encounter Care Teams Pulp Mill Supervisor Relationship Specialty Start Date End Date Dedra Arzola MD [address] [place] [address] PCP - General Family Medicine 04/06/12 documented as of this encounter
--- OUTSIDE RECORDS SUMMARY | 2024-08-31 12:13 | XMS_ITS | Encounter Summary ---
Author Organization [employer] Address 75 [facility] 7t [place] [address] Care Team Providers Care Employment Clerk Name Role Phone Dedra Arzola MD Primary Care Provider [phone] Encounter Details Date Type Department Care Team (Latest Contact Info) Description 05/13/2018 Abstract [facility] CONVERSIONS Dental, Provider, DDS Social History [...] Description 09/11/2024 9:15 AM EDT Office Visit [facility] CHC MED & PEDS 505 [place] [address] Dedra Arzola MD 505 [place] [address] documented as of this encounter Visit Diagnoses Not on filedocumented in this encounter Care Teams Employment Clerk Relationship Specialty Start Date End Date Dedra Arzola MD [address] [place] [address] PCP - General Family Medicine 04/06/12 documented as of this encounter
== END 2024-08-31 10:59 | disposition home or self-care (01) ==
LOC: HO.HKA 10:41
PROVIDERS: PCP Student in an Organized Health Care Education/Training Program; Visit Provider Internal Medicine Hypertension Specialist
DX: I12.9 Hypertensive chronic kidney disease with stage 1 through stage 4 chronic kidney disease, or unspecified chronic kidney disease (principal); N18.9 Chronic kidney disease, unspecified
CPT/HCPCS: 99214

== ENCOUNTER → 2024-08-31 10:40 | Outpatient (BNVA) | payer MEDICARE, MEDICAID, SELFPAY | PROVIDERS: PCP Student in an Organized Health Care Education/Training Program; Visit Provider Internal Medicine Hypertension Specialist | DX: I12.9 Hypertensive chronic kidney disease with stage 1 through stage 4 chronic kidney disease, or unspecified chronic kidney disease (principal); N18.9 Chronic kidney disease, unspecified | CPT/HCPCS: 99212 ==

== ENCOUNTER 2024-09-12 08:20 | Outpatient (REF) | payer MEDICARE, MEDICAID, SELFPAY ==
--- OUTSIDE RECORDS SUMMARY | 2024-09-12 08:28 | XMS_ITS | Encounter Summary ---
Author Organization [employer] Address [address] [facility] [address] 7[address] [place] [address] Care Team Providers Care Shop Assistant Name Role Phone Dedra Arzola MD Primary Care Provider [phone] Encounter Details Date Type Department Care Team (Latest Contact Info) Description 09/11/2024 Travel Social History Tobacco Use Types Packs/Day [...] documented as of this encounter Care Teams Shop Assistant Relationship Specialty Start Date End Date Dedra Arzola MD [address] [place] [address] PCP - General Family Medicine 04/06/12 documented as of this encounter
--- OUTSIDE RECORDS SUMMARY | 2024-09-12 08:28 | XMS_ITS | Encounter Summary ---
Author Organization [facility] Address [address] [place] [address] Phone Care Team Providers Care Retail Mortgage Banker Name Role Phone Dedra Arzola MD Primary Care Provider [phone] Encounter Details Date Type Department Care Team (Late st Contact Info) Description 09/10/2020 Orders Only [facility] [address] [place] [address] ProviderTony MD [address] [place] [address] Social History Tobacco Use Types Packs/Day [...] on filedocumented in this encounter Care Teams Retail Mortgage Banker Relationship Specialty Start Date End Date Dedra Arzola MD [address] [place] [address] PCP - General 05/13/20 documented as of this encounter
--- OUTSIDE RECORDS SUMMARY | 2024-09-12 08:28 | XMS_ITS | Encounter Summary ---
Author Organization [employer] Address 75 [facility] 7t [place] [address] Care Team Providers Care Cloth Layer Name Role Phone Dedra Arzola MD Primary Care Provider [phone] Reason for Visit * Reason Comments Med Refill Encounter Details Date Type Department Care Team ([facility] st Contact Info) Description 01/09/2023 Refill C CHC MED & PEDS 505 [place], [place] [phone] Hernando Patel MD 505 [place], [place] [phone] Primary hypertension Social History Tobacco Use Types [...] hypertension documented in this encounter Care Teams Cloth Layer Relationship Specialty Start Date End Date Dedra Arzola MD [address] [place] [address] PCP - General Family Medicine 04/06/12 documented as of this encounter
--- OUTSIDE RECORDS SUMMARY | 2024-09-12 08:28 | XMS_ITS | Encounter Summary ---
Author Organization [employer] Address 75 [facility] 7t [place] [address] Care Team Providers Care Cable Placer Name Role Phone Dedra Arzola MD Primary Care Provider Encounter Details Date Type Department Care Team (Late st Contact Info) Description 11/12/2022 Orders Only [facility] MEDICINE 230 [place], [place] [phone] Tricia Shoemaker LPN Social History Tobacco Use [...] on filedocumented in this encounter Care Teams Cable Placer Relationship Specialty Start Date End Date Dedra Arzola MD 230 [place] [address] PCP - General Family Medicine 04/06/12 documented as of this encounter
--- OUTSIDE RECORDS SUMMARY | 2024-09-12 08:28 | XMS_ITS | Clinical Summary ---
Author Organization [facility] Address [address] [facility] [address] [place] [address] Phone Care Team Providers Care Implementation Services Analyst Name Role Phone Dedra Arzola MD Primary Care Provider [phone] Allergies Active Allergy Reactions Criticality Noted Date [...] Medicaid [place] Medicare Medicaid [place] Care Teams Implementation Services Analyst Relationship Specialty Start Date End Date Dedra Arzola MD [address] [place] [address] PCP - General 05/13/20
--- OUTSIDE RECORDS SUMMARY | 2024-09-12 08:28 | XMS_ITS | Encounter Summary ---
Author Organization [employer] Address [address] [facility] [address] 7t [place] [address] Care Team Providers Care Speech Writer Name Role Phone Dedra Arzola MD Primary Care Provider [phone] Encounter Details Date Type Department Care Team ([facility] st Contact Info) Description 02/12/2023 Orders Only [facility] CHC MED & PEDS 505 [place] [address] Dedra Arzola MD 505 [place] [address] Social History Tobacco Use Types Packs/Day Years [...] the past 12 months, has t he [employer], gas, oil or water company threatened to [...] documented as of this encounter Care Teams Speech Writer Relationship Specialty Start Date End Date Dedra Arzola MD [address] [place] [address] PCP - General Family Medicine 04/06/12 documented as of this encounter
--- OUTSIDE RECORDS SUMMARY | 2024-09-12 08:28 | XMS_ITS | Encounter Summary ---
Author Organization [employer] Address 75 [facility] 7t [place] [address] Care Team Providers Care Technical Laboratory Asst Name Role Phone Dedra Arzola MD Primary Care Provider [phone] Reason for Visit * Reason Onset Date Comments Med Refill 06/02/2023 Encounter Details Date Type Department Care Team ([facility] Contact Info) Description 06/02/2023 Telephone [facility] CHC MED & PEDS 505 [place], [place] [phone] Dedra Arzola MD 505 [place] [address] Med Refill Social History Tobacco Use Types [...] 5 MG tablet To be sent to: [facility] [place], [place] - [facility] [address] documented in this encounter Plan of Treatment Not on file documented as of this encounter Visit Diagnoses Not on filedocumented in this encounter Additional Health Concerns Assessment Noted Time PHQ-9 Depression Total Score: 4 01/21/20 23 10:06 AM EDT documented as of this encounter Care Teams Technical Laboratory Asst Relationship Specialty Start Date End Date Dedra Arzola MD 230 [place] [address] PCP - General Family Medicine 04/06/12 documented as of this encounter
--- OUTSIDE RECORDS SUMMARY | 2024-09-12 08:28 | XMS_ITS | Encounter Summary ---
Author Organization [employer] Address 75 [facility] 7t [place] [address] Care Team Providers Care Six Horse Hitch Driver Name Role Phone Dedra Arzola MD Primary Care Provider [phone] Encounter Details Date Type Department Care Team ([facility] st Contact Info) Description 10/16/2022 Orders Only [facility] CHC MED & PEDS [address] [place] [address] Kely Townsend LPN Social History Tobacco Use [...] on filedocumented in this encounter Care Teams Six Horse Hitch Driver Relationship Specialty Start Date End Date Dedra Arzola MD [address] [place] [address] PCP - General Family Medicine 04/06/12 documented as of this encounter
--- OUTSIDE RECORDS SUMMARY | 2024-09-12 08:28 | XMS_ITS | Encounter Summary ---
Author Organization [employer] Address [address] [facility] [address] 7t [place] [address] Care Team Providers Care Events Solutions Consultant Name Role Phone Dedra Arzola MD Primary Care Provider [phone] Reason for Visit * Reason Comments Med Refill Encounter Details Date Type Department Care Team ([facility] st Contact Info) Description 07/21/2024 Refill [facility] CHC MED & PEDS 505 [place] [address] Dedra Arzola MD 505 [place] [address] Insomnia, unspecified type Social History Tobacco Use [...] documented as of this encounter Care Teams Events Solutions Consultant Relationship Specialty Start Date End Date Dedra Arzola MD [address] [place] [address] PCP - General Family Medicine 04/06/12 documented as of this encounter
--- OUTSIDE RECORDS SUMMARY | 2024-09-12 08:28 | XMS_ITS | Encounter Summary ---
Author Organization [employer] Address [address] [facility] [address] 7t [place] [address] Care Team Providers Care Gasoline Power Shovel Operator Name Role Phone Dedra Arzola MD Primary Care Provider [phone] Encounter Details Date Type Department Care Team ([facility] st Contact Info) Description 09/09/[address] [facility] CHC MED & PEDS 505 [place] [address] Dedra Arzola MD 505 [place] [address] Social History Tobacco Use Types Packs/Day Years [...] the past 12 months, has t he [employer], gas, oil or water company threatened to [...] documented as of this encounter Care Teams Gasoline Power Shovel Operator Relationship Specialty Start Date End Date Dedra Arzola MD [address] [place] [address] PCP - General Family Medicine 04/06/12 documented as of this encounter
--- OUTSIDE RECORDS SUMMARY | 2024-09-12 08:29 | XMS_ITS | Encounter Summary ---
Author Organization [employer] Address 75 [facility] 7t [place] [address] Care Team Providers Care Water Taxi Boat Mate Name Role Phone Dedra Arzola MD Primary Care Provider [phone] Encounter Details Date Type Department Care Team ([facility] st Contact Info) Description 08/06/2022 Orders Only [facility] CHC MED & PEDS 505 [place], [place] [phone] Dedra Arzola MD 505 [place], [place] [phone] Social History Tobacco Use Types Packs/Day Years [...] on filedocumented in this encounter Care Teams Water Taxi Boat Mate Relationship Specialty Start Date End Date Dedra Arzola MD [address] [place] [address] PCP - General Family Medicine 04/06/12 documented as of this encounter
--- OUTSIDE RECORDS SUMMARY | 2024-09-12 08:29 | XMS_ITS | Encounter Summary ---
Author Organization [employer] Address [address] [facility] [address] 7t [place] [address] Care Team Providers Care Website Programmer Name Role Phone Dedra Arzola MD Primary Care Provider [phone] Reason for Visit * Reason Comments Med Refill Encounter Details Date Type Department Care Team ([facility] st Contact Info) Description 07/21/2024 Refill [facility] CHC MED & PEDS 505 [place] [address] Dedra Arzola MD 505 [place] [address] Insomnia, unspecified type Social History Tobacco Use [...] documented as of this encounter Care Teams Website Programmer Relationship Specialty Start Date End Date Dedra Arzola MD [address] [place] [address] PCP - General Family Medicine 04/06/12 documented as of this encounter
--- OUTSIDE RECORDS SUMMARY | 2024-09-12 08:29 | XMS_ITS | Encounter Summary ---
Author Organization [employer] Address 75 [facility] 7t [place] [address] Care Team Providers Care Retail Support Specialist Name Role Phone Dedra Arzola MD Primary Care Provider [phone] Encounter Details Date Type Department Care Team (Latest Contact Info) Description 05/13/2018 Abstract [facility] CONVERSIONS Dental, Provider, DDS Social History [...] filedocumented in this encounter Care Teams Retail Support Specialist Relationship Specialty Start Date End Date Dedra Arzola MD [address] [place] [address] PCP - General Family Medicine 04/06/12 documented as of this encounter
--- OUTSIDE RECORDS SUMMARY | 2024-09-12 08:29 | XMS_ITS | Encounter Summary ---
Author Organization [employer] Address [address] [facility] 7t [place] [address] Care Team Providers Care Senior Medical Transcriptionist Name Role Phone Dedra Arzola MD Primary Care Provider [phone] Reason for Visit * Reason Comments Diabetes fu Encounter Details Date Type Department Care Team ([facility] st Contact Info) Description 09/11/2024 9:15 AM EDT Office Visit [facility] PEDS [address] [place], [place] [phone] Dedra Arzola MD [address] [place], [place] [phone] Type 2 diabetes mellitus without complication, without long-term current use of insulin ([facility]) (Primary Dx); Dietary counseling; Exercise counseling; Pure hypercholesterolemia; Hypothyroidism, unspecified type; Benign essential hypertension Social History Tobacco Use Types Packs/Day [...] the past 12 months, has t he [employer], gas, oil or water [employer] threatened to shut off services in your [...] AM EDT documented as of this encounter Last Filed Vital Signs Vital Sign Reading Time Taken Comments Blood Pressure 152/72 09/11/2024 9:19 AM EDT Pulse 79 09/11/2024 9:19 AM EDT Temperature 36.1 ??C (97 ??F) 09/11/2024 9:19 AM EDT Respiratory Rate 18 09/11/2024 9:19 AM EDT Oxygen Saturation 99% 09/11/2024 9:19 AM EDT Inhaled Oxygen Concentration - - Weight 68.5 kg (151 lb) 09/11/2024 9:19 AM EDT Height 156.2 cm (5' 1.5 ) 09/11/2024 9:19 AM EDT Body Mass Index 28.07 09/11/2024 9:19 AM EDT documented in this encounter Progress Notes * Dedra Arzola MD - 09/11/2024 9:15 AM EDT Subjective Patient ID: Margaret Wright is a 84 y.o. female who presents for Diabetes (fu). Diabetes She presents for her follow-up diabetic visit. She has type 2 diabetes mellitus. Her disease coursehas been stable. There are no hypoglycemic associated symptoms. Pertinent negatives for hypoglycemia include no headaches or sweats. There are no diabetic associated symptoms. Pertinent negatives fordiabetes include no blurred vision and no chest pain. There are no hypoglycemic complications. Symptoms are stable. There are no diabetic complications. Current diabetic treatment includes oral agent(dual therapy). She is following a generally healthy diet. She has not had a previous visit with a dietitian. An EMILY inhibitor/angiotensin II receptor adam is being taken. Review of Systems Constitutional: Negative. Eyes: Negative for blurred vision. Respiratory: Negative. Negative for shortness of breath. Cardiovascular: Negative for chest pain and palpitations. Gastrointestinal: Negative. Genitourinary: Negative. Musculoskeletal: Negative for neck pain. Neurological: Negative for headaches. Objective Physical Exam Constitutional: General: She is not in acute distress. Appearance: Normal appearance. She is normal weight. HENT: Head: Normocephalic. Nose: Nose normal. Mouth/Throat: Mouth: Mucous membranes are moist. Comments: Has braces Eyes: Extraocular Movements: Extraocular movements intact. Pupils: Pupils are equal, round, and reactive to light. Cardiovascular: Rate and Rhythm: Normal rate and regular rhythm. Pulses: Normal pulses. Dorsalis pedis pulses are 2+ on the right side and 2+ on the left side. Posterior tibial pulses are 2+ on the right side and 2+ on the left side. Heart sounds: Normal heart sounds. No murmur heard. Pulmonary: Effort: Pulmonary effort is normal. Breath sounds: Normal breath sounds. Abdominal: General: Abdomen is flat. Bowel sounds are normal. There is no distension. Palpations: Abdomen is soft. There is no mass. Tenderness: There is no abdominal tenderness. There is no guarding. Musculoskeletal: General: Normal range of motion. Right lower leg: No edema. Left lower leg: No edema. Right foot: Normal range of motion. No deformity, bunion, Charcot foot or prominent metatarsal heads. Left foot: Normal range of motion. No deformity, bunion, Charcot foot or prominent metatarsal heads. Feet: Right foot: Protective Sensation: 7 sites tested. 7 sites sensed. Skin integrity: Skin integrity normal. No ulcer, blister, skin breakdown, erythema, warmth, callus or dry skin. Toenail Condition: Right toenails are normal. Left foot: Protective Sensation: 7 sites tested. 7 sites sensed. Skin integrity: Skin integrity normal. No ulcer, blister, skin breakdown, erythema, warmth, callus or dry skin. Toenail Condition: Left toenails are normal. Skin: Capillary Refill: Capillary refill takes less than 2 seconds. Findings: No rash. Neurological: Mental Status: She is alert and oriented to person, place, and time. Psychiatric: Mood and Affect: Mood normal. Behavior: Behavior normal. Assessment/Plan Diagnoses and all orders for this visit: Type 2 diabetes mellitus without complication, without long-term current use of insulin ([facility]) Comments: Well controlled No Chnages in meds Advised Low sugar and Low carb diet. Counseled regarding self-monitoring of blood glucose. Counseled re: potential co-morbidities including cardiovascular disease. Counseled re: potential co-morbidities include neuropathy and retinopathy. Counseled re: potential co-morbidities include nephropathy. Orders: - Basic Metabolic Panel; Future - Lipid Panel, Standard; Future - Hepatic Function Panel; Future - Hemoglobin A1c; Future - POCT Glucose - POCT HGB A1C Dietary counseling Exercise counseling Pure hypercholesterolemia Comments: Stable Advised to maintain a low-fat, low-cholesterol diet. Orders: - Lipid Panel, Standard; Future - Hepatic Function Panel; Future Hypothyroidism, unspecified type Comments: Labs ordered today Cont levothyroxine Orders: - TSH with Reflex to Free T4; Future Benign essential hypertension Comments: stable Home readings well controlled Maintain a low-sodium diet (less than 2 grams per day). Maintain a regular cardiovascular exercise program. Other orders - triamcinolone (Kenalog) 0.1 % cream; Apply topically if needed in the morning and at bedtime (pain and swelling). documented in this encounter Plan of Treatment Scheduled Orders Name Type Priority Associated Diagnoses Orde r Schedule Basic Metabolic Panel Lab Routine Type 2 diabetes mellitus without complication, without long-term current use of insulin (CMS/HCC) Expected: 09/11/2024 (Approximate), Expires: 09/11/2025 Lipid Panel, Standard Lab Routine Type 2 diabetes mellitus without complication, without long-term current use of insulin ([facility]) Pure hypercholesterolemia Expected: 09/11/2024 (Approximate), Expires: 09/11/2025 Hepatic Function Panel Lab Routine Type 2 diabetes mellitus without complication, without long-term current use of insulin ([facility]) Pure hypercholesterolemia Expected: 09/11/2024 (Approximate), Expires: 09/11/2025 Hemoglobin A1c Lab Routine Type 2 diabetes mellitus without complication, without long-term current use of insulin ([facility]) Expected: 09/11/2024 (Approximate), Expires: 09/11/2025 TSH with Reflex to Free T4 Lab Routine Hypothyroidism, unspecified type Expected: 09/11/2024 (Approximate), Expires: 09/11/2025 documented as of this encounter Procedures Procedure Name Priority Date/Time Associated Diagnosis Comments POCT GLYCATED HEMOGLOBIN, TOTAL Routine 09/11/2024 9:22 AM EDT Type 2 diabetes mellitus without complication, without long-term current use of insulin ([facility]) POCT GLUCOSE Routine 09/11/2024 9:21 AM EDT Type 2 diabetes mellitus without complication, without long-term current use of insulin ([facility]) documented in this encounter Results * POCT HGB A1C (09/11/2024 9:22 AM EDT) Hemoglobin A1C 5.7 4.0 - 6.0 % QC Media Lot # [id number] Lot# Expiration Date Blood 09/11/2024 9:22 AM EDT us Dedra Arzola MD POINT OF CARE TEST ENTER/EDIT OR DERABLES Final Result * POCT Glucose (09/11/2024 9:21 AM EDT) Glucose Blood, POC 127 60 - 200 mg/dL QC Media Lot # [id number] Lot# Expiration Date ,025 Blood Capillary blood specimen / Unknown 09/11/2024 9:21 AM EDT us Dedra Arzola MD POINT OF CARE TEST ENTER/EDIT OR DERABLES Final Result documented in this encounter Visit Diagnoses Diagnosis Type 2 diabetes mellitus without complication, without long-term current use of insulin ([facility])- Primary Dietary counseling Dietary surveillance and counseling Exercise counseling Pure hypercholesterolemia Hypothyroidism, unspecified type Benign essential hypertension Essential hypertension, benign documented in this encounter Additional Health Concerns Assessment Noted Time PHQ-9 Depression Total Score: 4 01/21/20 23 10:06 AM EDT documented as of this encounter Care Teams Senior Medical Transcriptionist Relationship Specialty Start Date End Date Dedra Arzola MD [address] [place] [phone] PCP - General Family Medicine 04/06/12 documented as of this encounter
--- OUTSIDE RECORDS SUMMARY | 2024-09-12 08:29 | XMS_ITS | Encounter Summary ---
Author Organization [employer] Address [address] [facility] 7t [place] [address] Care Team Providers Care Senior Financial Reporting Analyst Name Role Phone Dedra Arzola MD Primary Care Provider [phone] Encounter Details Date Type Department Care Team (Latest Contact Info) Description 09/12/2021 Abstract [facility] CONVERSIONS Dental, Provider, DDS Social History [...] on filedocumented in this encounter Care Teams Senior Financial Reporting Analyst Relationship Specialty Start Date End Date Dedra Arzola MD [address] [place] [phone] PCP - General Family Medicine 04/06/12 documented as of this encounter
--- OUTSIDE RECORDS SUMMARY | 2024-09-12 08:29 | XMS_ITS | Clinical Summary ---
Author Organization [employer] Address [address] [facility] 7t [place] [address] Care Team Providers Care Technical Project Manager Name Role Phone Dedra Arzola MD Primary Care Provider [phone] Allergies Active Allergy Reactions Criticality Noted Date [...] topically every 12 (twelve) hours. 2020 Active Ldiehlk-Xqsqpsomvn-Rgd dias D (Citracal +D3) 250-107-500 MG-MG-UNIT chewable [...] test stripIndications:Type 2 diabetes mellitus without complications ([facility]) USE ONE TO TEST BLOOD [...] EVERY MORNING 90 tablet 1 2024 Active triamcinolone (Kenalog) 0.1 % cream Apply topically if needed in the morning and at bedtime (pain and swelling). 30 g 2 2024 Active Aspirin Low Dose 81 MG [...] Encounters Date Type Department Care Team Description 09/11/2024 9:15 AM EDT Office Visit [facility] & PEDS [address] [place] [address] Dedra Arzola MD Type 2 diabetes mellitus without complication, without long-term current use of insulin ([facility]) (Primary Dx); Dietary counseling; Exercise counseling; Pure hypercholesterolemia; Hypothyroidism, unspecified type; Benign essential hypertension 09/11/2024 Travel 09/04/2024 Patient Outreach [facility] [address] [place] [address] Dedra Arzola MD Pre-visit Planning (Pre visit planning unable to LVM ) 08/26/2024 Refill [facility] [address] [place] [address] Dedra Arzola MD 08/17/2024 Refill [facility] [address] [place] [address] Dedra Arzola MD Insomnia, unspecified type 07/31/2024 Refill [facility] [address] [place] [address] Karrie Robin MD Major depressive disorder with current active episode, unspecified depression episode severity, unspecified whether recurrent 07/28/2024 Refill [facility] [address] [place] [address] Dedra Arzola MD Pure hypercholesterolemia 07/24/2024 Refill [facility] [address] [place] [address] Ketty Dawson MD Hypothyroidism, unspecified type; Insomnia, unspecified type 07/21/2024 Refill [facility] [address] [place] [address] Dedra Arzola MD Insomnia, unspecified type 07/21/2024 Telephone [facility] [address] [place] [address] Dedra Arzola MD Med Refill 07/21/2024 Refill [facility] [address] [place], [place] [phone] Dedra Arzola MD Insomnia, unspecified type 07/20/2024 9:00 AM EDT Office Visit [facility] [address] [place] [address] Kayley Luis DDJosie 07/20/2024 Travel 07/04/2024 9:00 AM EST Office Visit [facility] [address] [place], [place] [phone] YumikoLinnette, OD 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); Low vision right eye category 1, low vision left eye category 2 07/04/2024 Travel 06/29/2024 11:30 AM EST Office Visit [facility] [address] [place] [address] Rima Claudio 06/23/2024 Orders Only [facility] [address] [place] [address] Dedra Arzola MD 06/20/2024 Refill [facility] [address] [place], [place] [phone] Dedra Arzola MD Primary hypertension; Insomnia, unspecified [...] Mass Index 28.07 09/11/2024 9:19 AM EDT Plan of Treatment Health Maintenance Due Date Last Done Comments Dental X-Ray: Full Mouth 1940 RSV Patients and Patients Aged 60 years or older (1 - 1-dose 75+ series) 2017 Dental Oral Exam 09/16/2023 03/17/2023 Dental Prophylaxis 09/16/2023 03/17/2023, 07/20/2022 Depression Screening 01/21/2024 01/20/2023, 01/21/20 Dental X-Ray: Bitewings 03/18/2024 03/17/2023 Diabetes: Urine Protein Screening 09/27/2024 09/28/2023, 08/05/2022, 02/14/2021 Alcohol/Substance Use Screening 03/13/2025 03/13/2024 COVID-19 Vaccine ( season) 2025 04/16/2022, 09/09/2021, 01/29/2021, Additional history exists Postponed from 01/02/2024 (Patient Refused) Lipid Panel 03/13/2025 03/13/2024, 05/2 12/2023, 01/21/2023, Additional history exists SDOH Screening 03/13/2025 03/13/2024 Diabetes: Hemoglobin A1C 03/14/2025 025, 03/13/2024, 09/28/2023, Additional history exists DTaP/Tdap/Td Vaccines (2 - Td or Tdap) 06/18/2025 06/18/2015 Mammogram 06/23/2025 06/23/2024, 06/03, 06/12/2022, Additional history exists Diabetes: Foot Exam 09/11/2025 09/11/2024, 09/11/2024, 09/11/2024, Additional history exists Tobacco Screening 09/11/2025 09/11/2024 Eye Exam 05/26/2026 05/26/2024, 05/04, 05/26/2024, Additional [...] complication, without long-term current use of insulin ([facility]) POCT GLUCOSE Routine 09/11/2024 9:21 AM EDT Type 2 diabetes mellitus without complication, without long-term current use of insulin ([facility]) 9 LI RESIN-BASED COMPOSITE - 2 SURF, [...] TOMOSYNTHESIS BILATERAL Routine 06/23/2024 11:35 AM EST LIPID PANEL, STANDARD Routine 03/13/2024 10:08 AM EST Type 2 diabetes mellitus without complication, without long-term current use of insulin ([facility]) Benign essential hypertension CREATININE, RANDOM URINE Routine 09/28/2023 10:00 AM EDT PROPHYLAXIS - ADULT Routine 03/17/2023 9 :00 AM EST BITEWINGS - 4 RADIOGRAPHIC IMAGES Routine 03/17/2023 9:00 AM EST PERIODIC ORAL EVALUATION - ESTABLISHED PATIENT Routine 03/17/2023 9:00 AM EST from Last 3 Months or Most Recently Relevant to Health Maintenance Results * POCT HGB A1C (09/11/2024 9:22 AM EDT) Hemoglobin A1C 5.7 4.0 - 6.0 % QC Media Lot # [id number] Lot# Expiration Date , Blood 09/11/2024 9:22 AM EDT Dedra Arzola MD POINT OF CARE TEST ENTER/EDIT OR DERABLES Final Result * POCT Glucose (09/11/2024 9:21 AM EDT) Glucose Blood, POC 127 60 - 200 mg/dL QC Media Lot # [id number] Lot# Expiration Date [id number] Blood Capillary blood specimen / Unknown 09/11/2024 9:21 AM EDT us Dedra Arzola MD POINT OF CARE TEST ENTER/EDIT OR DERABLES Final Result * BI Mammogram Screening Tomosynthesis Bilateral (06/23/2024 11:35 AM EST) Anatomical Region Laterality Modality Breast Bilateral Mammography 06/23/2024 11:3 5 AM EST Narrative 07/01/2024 10:15 AM EST ? [facility] ? [address] ?[place] [address] ? Mammography Report ? Signed ? Patient: Margaret Wright ?MR#: [id number] ?? 54 ? : 1940 ?Acct:[id number] ? Age/Sex: 83 / F ?ADM Date: 06/23/24 ? Loc: HO.MAMMO ? Attending Dr: Dedra Arzola MD ? Ordering Physician: Dedra Arzola MD ?Results: 1Negati ?? ve ? Date of Service: 06/23/24 ?Follow Up: 1 Year From Orig ?? inal Mammogram ? Procedure(s): MM tomosynthesis screening BI ?? Accession Number(s): [id number] ? cc: Dedra Arzola MD ? EXAMINATION: [...] DD/ 1135 ? TD/TT: 06/23/24 1152 ? Bakery Team Member: ? Procedure Note Naveen, Image - 07/01/2024 [facility] [address] [place] [address] [place] [address] Mammography Report Signed Patient: Margaret Wright TMR#: [id number] 54 : 3Acct:[id number] Age/Sex: 83 / FADM Date: 06/23/24 Loc: HO.MAMMO Attending Dr: Dedra Arzola MD Ordering Physician: Dedra Arzolaesults: 1Negati ve Date of Service: 06/23/24Follow Up: 1 Year From Orig inal Mammogram Procedure(s): MM tomosynthesis screening BI Accession Number(s): [id number] cc: Dedra Arzola MD EXAMINATION: MM SCREENING [...] 07/01/24 1011 DD/ 1135 TD/TT: 06/23/24 1152 Bakery Team Member: us Dedra Arzola MD IM BI PROCEDURES Edited Result - Final * (ABNORMAL) Lipid Panel, Standard (03/13/2024 10:08 AM EST) Triglycerides 174(H) <150 mg/dL [facility] Comment:Desirable Triglyceri de: less than 150 mg/dLBorderline High Triglyceride 150-199 mg/dLHigh Triglyceride: 200-499 mg/dLVery High Triglyceride: greater than or equal to 5OO mg/dL Cholesterol 169 <200 mg/dL [facility] Comment:Desirable Cholestero l: less than 200 mg/dLBorderline High Cholesterol: 200-239 mg/dLHigh Cholesterol: greater than 239 mg/dL LDL Cholesterol Calculated 91 <100 mg/dL [facility] Comment:Desirable LDL: less than 100 mg/dLNear Optimal/Above Optimal LDL: 110- 129 mg/dLBorderline High LDL: 130-159 mg/dLHigh LDL: 160-189 mg/dLVery High LDL: greater than or equal to 190 mg/dL HDL Cholesterol 44 >40 mg/dL [facility] Comment:Desirable HDL: great er than 40 mg/dL Note: This HDL assay may give artificially low results in patients with liver disease. Blood Venous blood specimen / Unknown 03/13/2024 10:08 AM EST 03/13/2024 2:03 PM EST us Dedra Arzola MD LAB BLOOD ORDERABLES Final Resul t Performing Organization Address City/[facility]/ZIP Co de Phone Number [facility] [address] [place] [phone] * Creatinine, Random Urine (09/28/2023 10:00 AM EDT) Creatinine, Urine 54.46 mg/dL [facility] 09/28/2023 10:0 0 AM EDT 09/28/2023 2:44 PM EDT us Generic External Data Provider LAB URINE ORDERAB LES Final Result Performing Organization Address [facility] Co de Phone Number [facility] [address] [place] [phone] from Last 3 Months or Most Recently Relevant to Health Maintenance Insurance [facility] STANDARD MEDICARE DENTAL - HSN FULL (MEDICAID) Care Teams Technical Project Manager Relationship Specialty Start Date End Date Dedra Arzola MD [address] [place] [phone] PCP - General Family Medicine 04/06/12
--- OUTSIDE RECORDS SUMMARY | 2024-09-12 08:29 | XMS_ITS | Encounter Summary ---
Author Organization [employer] Address [address] [facility] 7t [place] [address] Care Team Providers Care Python Programmer Name Role Phone Dedra Arzola MD Primary Care Provider [phone] Encounter Details Date Type Department Care Team (Latest Contact Info) Description 05/19/2019 Abstract [facility] CONVERSIONS Dental, Provider, DDS Social [...] on filedocumented in this encounter Care Teams Python Programmer Relationship Specialty Start Date End Date Dedra Arzola MD [address] [place] [phone] PCP - General Family Medicine 04/06/12 documented as of this encounter
[2024-09-12 14:57] LABS: Alanine Aminotransferase 16 U/L (0-31); Albumin Level 4.1 g/dL (3.5-5.0); Alkaline Phosphatase 92 U/L (39-117); Anion Gap 15 (12-20); Aspartate Amino Transferase 35 U/L (5-31); Bilirubin Direct 0.2 mg/dL (0.0-0.5); Bilirubin Total 0.4 mg/dL (0.0-1.0); Blood Urea Nitrogen 21 mg/dL (9-16); Calcium 9.5 mg/dL (8.4-10.2); Carbon Dioxide 29 mmol/L (22-29); Chloride 99 mmol/L (96-108); Cholesterol 161 mg/dL (<200); Estimated Glomerular Filt Rate 52; Glucose Random 100 mg/dL (60-115); HDL Cholesterol 37 mg/dL (>40); LDL Cholesterol Calculated 90 mg/dL (<100); Potassium 3.5 mmol/L (3.3-5.1); Sodium 139 mmol/L (135-145); Total Protein 7.9 g/dL (6.5-8.0); Triglycerides 172 mg/dL (<150)
[2024-09-12 15:03] LABS: TSH reflex Free T4 3.78 uIU/mL (0.32-4.0)
[2024-09-12 15:10] LABS: Estimated Average Glucose 114 mg/dL; Hemoglobin A1C 120.4353 umol/L; Hemoglobin A1c % 5.6 % (<6.0); Total Hemoglobin (HGBA1C) 3180.8369 umol/L
== END 2024-09-12 08:21 | disposition home or self-care (01) ==
LOC: HO.CHCLDS 08:20
PROVIDERS: Visit Provider Student in an Organized Health Care Education/Training Program
DX: E11.9 Type 2 diabetes mellitus without complications (principal); E78.00 Pure hypercholesterolemia, unspecified; E03.9 Hypothyroidism, unspecified
CPT/HCPCS: 36415; 80048; 80061; 80076; 83036; 84443

== ENCOUNTER 2024-10-10 09:37 | Outpatient (AMB) | payer MEDICARE, MEDICAID, SELFPAY ==
[2024-10-10 09:46] VITALS: BP 130/64; PULSE 73; O2SAT 97; BMI 27.3
--- NOTE | 2024-10-10 09:46 | MHC.OFFVIS ---
Vital Signs 10/10/24 09:46 Height 5 ft 2 in Weight 149 lb 0.92 oz BMI 27.3 BP 130/64 Blood Pressure Location Lt brachial Position Sitting Pulse 73 Pulse Source Pulse Oximeter Pulse Oximetry (%) 97 Oxygen Delivery Method Room Air Intake Visit Reasons: COPD Intake Note: pt is here for follow up and states her breathing is good. Asbestos Siding Mechanic Required: No Allergies Penicillins [PENICILLINS] Allergy (Intermediate, Verified 10/10/24 10:09) RASH Medication List - Last Reconciled 10/10/24 by David Reyes MD amlodipine 10 mg PO QAM aspirin 1 tab PO QAM blood sugar diagnostic As directed calcium citrate-vitamin D3 125-62.5 mg-unit tabs PO cetirizine 10 mg PO BEDTIME duloxetine 20 mg PO DAILY fluticasone propionate 50 mcg/actuation intranasal hydrochlorothiazide 25 mg PO DAILY icosapent ethyl (Vascepa) 2 grams PO BID lancets As directed levothyroxine 50 mcg PO DAILY montelukast 10 mg PO QPM 90 days rosuvastatin 10 mg PO BEDTIME sertraline 100 mg PO DAILY vitamins A,C,H-wjtg-ybvese 4,296 mcg-226 mg-90 mg (PreserVision AREDS) 1 cap PO BID zolpidem 5 mg PO BEDTIME Do you need a note to return to daycare/school/sports/work: No HPI HPI COPD: Details: This 84 years old very pleasant female comes for follow-up after a few months. Nasal congestion is under controlled . She has minimal cough and no wheezing at all. Overall she is doing very well but her symptoms are somewhat flared due to allergies. She is on minimal medication at this time. But addition of montelukast 10 mg daily [facility] Medical History Cough Asthma Allergic rhinitis Surgical History Hx of colonoscopy Family History Daughter Colon cancer Social History Patient Tobacco Use Status: Former Tobacco user Years Smoked: 25 years, quit 41yo Review of Systems Const All systems reviewed & are unremarkable except as noted in HPI and below Eyes Reports no additional complaints ENT Reports nasal congestion and Reports nasal discharge (Much less than before) Card Denies chest pain, Denies irregular heart rhythm and Denies leg edema Resp Reports cough (Only mild and intermittent, ) and Denies wheezing GI Reports no additional complaints and Reports heartburn ( CONTROLLED WITH MED) Reports no additional complaints Musc Reports no additional complaints Skin/Breast Reports system reviewed and no additional complaints, except as documented Neuro Reports no additional complaints Psych Reports depression (CONTROLLED WITH MED) Aller/Immun Denies wheezing Physical Exam Vital Signs: Last Vital Signs Pulse 73 10/10/24 09:46 BP 130/64 10/10/24 09:46 Pulse Ox 97 10/10/24 09:46 Oxygen Delivery Method Room Air 10/10/24 09:46 BMI result Body Mass Index 27.3 Const General: comfortable, no acute distress, alert and awake Orientation/consciousness: patient oriented x3 HEENT Head: Yes normal to inspection General nose exam: No nasal polyps present and No nasal discharge present Face and sinus: Yes sinuses nontender Mouth: oropharynx normal Throat: Yes posterior oropharynx normal Eyes General: appearance normal, both eyes and all related structures Neck Neck: Yes normal visual inspection, Yes no lymphadenopathy, Yes trachea midline and Yes no JVD Thyroid: Thyroid normal Chest Chest palpation & inspection: normal inspection of the chest, normal palpation of entire chest wall and no tenderness Resp Other: PERCUSSION NOTE IS RESONANT. BREATH SOUNDS ARE EQUAL ON BOTH SIDES . NO WHEEZES OR RHONCHI ARE HEARD. Cardio Palpation: normal PMI Rate: regular rate Rhythm: regular rhythm Heart sounds: no gallops and no murmurs GI Palpation (GI): Soft to palpation, nontender, No hepatosplenomegaly present and no masses Auscultation: normal bowel sounds Back/Spine/Pelvis Thoracic/Lumbar Spine: thoracic and lumbar spine normal to inspection Skin General skin exam: no rashes or lesions noted Neuro General: patient oriented x3 and no focal motor deficits Cranial nerves: Yes CN's II-XII intact bilaterally Extrem General: Yes normal to inspection, Yes no clubbing, cyanosis or edema and Yes no calf tenderness Psych Appearance: grossly normal Speech and movement: Normal speech and movement present Assessment & Plan Assessment & Plan (1) Cough: Comment: AT PRESENT COUGH IS ALMOST COMPLETELY RESOLVED. ADVISED TO CONTINUE TREATMENT FOR ALLERGIC RHINITIS. USE COUGH MEDS ONLY NEEDED. Code(s): R05 - Cough Category: Medical Plan: May use albuterol HFA 2 puffs Q 6 hours p.r.n. (2) Allergic rhinitis: Comment: CHRONIC COUGH , MAINLY SEC TO ALL RHINITIS , WELL CONTROLLED AT THIS TIME. Code(s): J30.9 - Allergic rhinitis, unspecified Category: Medical Plan: Continue montelukast 10 mg daily Use Flonase 2 spray in each nostril daily May also use cetirizine 10 mg once a day p.r.n. Coding Level of Care Code Est Pt Level 3 (40143) Diagnoses Cough R05 Allergic rhinitis J30.9
--- OUTSIDE RECORDS SUMMARY | 2024-10-10 10:39 | XMS_ITS | Encounter Summary ---
Author Organization [employer] Address [address] [facility] 7t [place] [address] Care Team Providers Care Cmv Driver Name Role Phone Dedra Arzola MD Primary Care Provider [phone] Encounter Details Date Type Department Care Team ([facility] st Contact Info) Description 02/12/2023 Orders Only [facility] CHC MED & PEDS [address] [place] [address] Dedra Arzola MD 505 [place], [place] Social History Tobacco Use Types Packs/Day Years Used Date Smoking Tobacco: Never Passive Smoke Exposure: Never Smokeless Tobacco: Never Alcohol Use Standard Drinks/Week Comments Never 0 (1 standard drink = 0.6 oz pur e alcohol) Depression Answer Date Recorded Patient Health Questionnaire-9 Score 4 01/20/2023 Housing Stability Answer Date Recorded What is your housing situation today? I have hugomichelle lucas 02/08/[address] you [...] t he electric, gas, oil or water [employer] threatened to shut off services in your [...] documented as of this encounter Care Teams Cmv Driver Relationship Specialty Start Date End Date Dedra Arzola MD [address] [place] [id number] PCP - General Family Medicine 04/06/12 documented as of this encounter
== END 2024-10-10 10:10 | disposition home or self-care (01) ==
LOC: HO.HPS 09:38
PROVIDERS: PCP Student in an Organized Health Care Education/Training Program; Visit Provider Internal Medicine
DX: R05.9 Cough, unspecified (principal); J30.9 Allergic rhinitis, unspecified
CPT/HCPCS: 99213

== ENCOUNTER → 2024-10-10 09:37 | Outpatient (BNVA) | payer MEDICARE, MEDICAID, SELFPAY | PROVIDERS: PCP Student in an Organized Health Care Education/Training Program; Visit Provider Internal Medicine | DX: R05.9 Cough, unspecified (principal); J30.9 Allergic rhinitis, unspecified | CPT/HCPCS: 99212 ==

== ENCOUNTER 2025-02-22 09:36 | Outpatient (REF) | payer MEDICARE, MEDICAID, SELFPAY ==
[2025-02-22 09:56] LABS: Hematocrit 34.0 % (37.0-47.0); Hemoglobin 11.5 g/dl (12.0-16.0); Mean Corpuscular HGB Conc 33.8 g/dl (31.0-35.0); Mean Corpuscular Hemoglobin 31.3 pg (27.0-33.0); Mean Corpuscular Volume 92.4 fL (80.0-98.0); NRBC Abs Auto 0.030 X10*3/uL (0.0-0.012); NRBC Pct Auto 0.4 /100WBC (0.0-0.2); Platelet Count 203 X10*3/uL (160-400); Red Blood Count 3.68 X10*6/uL (4.20-5.50); White Blood Count 8.4 X10*3/uL (4.8-10.8)
[2025-02-22 10:09] LABS: Anion Gap 13 (12-20); Blood Urea Nitrogen 21 mg/dL (9-16); Calcium 9.4 mg/dL (8.4-10.2); Carbon Dioxide 26 mmol/L (22-29); Chloride 101 mmol/L (96-108); Estimated Glomerular Filt Rate 48; Potassium 3.9 mmol/L (3.3-5.1); Sodium 136 mmol/L (135-145)
--- OUTSIDE RECORDS SUMMARY | 2025-02-22 10:55 | XMS_ITS | Encounter Summary ---
Author Organization [facility] Address [address] [place] [address] Phone Care Team Providers Care Power System Operator Name Role Phone Dedra Arzola MD Primary Care Provider [phone] Encounter Details Date Type Department Care Team (Late st Contact Info) Description 09/10/2020 Orders Only [facility] [address] [place] [address] ProviderTony MD Social History Tobacco Use Types Packs/Day Years [...] on filedocumented in this encounter Care Teams Power System Operator Relationship Specialty Start Date End Date Dedra Arzola MD [address] [place] [address], [place] [address] PCP - General 05/13/20 documented as of this encounter
--- OUTSIDE RECORDS SUMMARY | 2025-02-22 10:55 | XMS_ITS | Clinical Summary ---
Author Organization [facility] Address [address] [facility] [address] [place] [address] Phone Care Team Providers Care Latexer Name Role Phone Dedra Arzola MD Primary Care Provider [phone] Allergies Active Allergy Reactions Criticality Noted Date [...] Hemoglobin A1C 11/04/2022 08/05/2022 Influenza Vaccine (#1) 2025 01/02/2016 Pneumococcal Vaccine: Peds ( 0 to 5 Years) and At-Risk Patients (6 to 49 Years) Discontinued 10/04/2013 Hepatitis B Vaccine Aged Out No longe r eligible based on patient's age to complete this topic Insurance Medicare Medicaid [place] Medicare Medicaid [place] Care Teams Latexer Relationship Specialty Start Date End Date Dedra Arzola MD [address] [place] [address] PCP - General 05/13/20
[2025-02-22 13:14] LABS: Appearance Urine Clear; Glucose Urine UA Negative (Negative); PH 6.0 (5.0-9.0); Specific Gravity - Urine <= 1.005 (1.005-1.025)
[2025-02-22 13:59] LABS: Total Protein Urine Random 22 mg/dL (<12)
[2025-02-26 19:09] LABS: Prot Elec - Albumin 3.9 g/dL (3.8-4.8); Prot Elec - Alpha1 0.3 g/dL (0.2-0.3); Prot Elec - Alpha2 0.8 g/dL (0.5-0.9); Prot Elec - Beta 1 0.5 g/dL (0.4-0.6); Prot Elec - Beta 2 0.5 g/dL (0.2-0.5); Prot Elec - Gamma 1.3 g/dL (0.8-1.7); Prot Elec - Total Protein 7.4 g/dL (6.1-8.1)
== END 2025-02-22 09:37 | disposition home or self-care (01) ==
LOC: HO.10HDL 09:36
PROVIDERS: Visit Provider Internal Medicine Hypertension Specialist
DX: N18.9 Chronic kidney disease, unspecified (principal)
CPT/HCPCS: 36415; 80048; 81003; 82570; 84156; 84165; 85027

== ENCOUNTER 2025-03-09 09:32 | Outpatient (AMB) | payer MEDICARE, MEDICAID, SELFPAY ==
[2025-03-09 09:39] VITALS: BP 150/62; PULSE 64; O2SAT 92; BMI 27.4
--- NOTE | 2025-03-09 09:39 | HO.NEPHOV ---
Vital Signs 03/09/25 09:39 Height 5 ft 2 in Weight 150 lb BMI 27.4 BP 150/62 H Blood Pressure Location Rt brachial Position Sitting Pulse 64 Pulse Source Pulse Oximeter Pulse Oximetry (%) 92 Oxygen Delivery Method Room Air Intake Visit Reasons: 6 MO FU conf Corporate Safety Coordinator Required: No Accompanied by: Spouse Allergies Penicillins (PENICILLINS) Allergy (Intermediate, Verified 03/09/25 09:40) RASH Medication List - Last Reconciled 03/09/25 by Tristian French MD amlodipine 10 mg PO QAM aspirin 1 tab PO QAM blood sugar diagnostic As directed calcium citrate-vitamin D3 125-62.5 mg-unit tabs PO cetirizine 10 mg PO BEDTIME fluticasone propionate 50 mcg/actuation intranasal hydrochlorothiazide 25 mg PO DAILY icosapent ethyl (Vascepa) 2 grams PO BID lancets As directed levothyroxine 50 mcg PO DAILY montelukast 10 mg PO QPM 90 days rosuvastatin 10 mg PO BEDTIME sertraline 100 mg PO DAILY vitamins A,C,D-nwsz-ghphuh 4,296 mcg-226 mg-90 mg (PreserVision AREDS) 1 cap PO BID zolpidem 5 mg PO BEDTIME HPI Comments Details: Margaret is a pleasant 84-year-old woman with a history of longstanding hypertension and chronic kidney disease. She is here for semiannual follow-up. From renal standpoint she has no specific complaints. No shortness of breath nausea vomiting. No urinary symptoms. She is compliant with her medications. 02/29/24;Overall doing OK ;Now with macular degeneration 08/31/24 : No new issues. No N/v ;No urinary symptoms ; Still with some ankle edema ; No dyspnea 03/09/25 The patient is an 84-year-old female presenting for a follow-up visit for hypertension management. She has a long-standing history of hypertension, which has been managed over the years with medication. Recently, she was taken off duloxetine, although the specific reason for this change was not recalled by the patient. The patient reports a slight swelling in her legs, which she describes as not severe. Upon examination, the swelling was confirmed to be minimal. Her blood work has been stable, and she reports no significant issues with her kidney function. REPLACED BY [facility] Medical History Cough Asthma Allergic rhinitis Surgical History Hx of colonoscopy Family History Daughter Colon cancer Social History Patient Tobacco Use Status: Former Tobacco user Years Smoked: 25 years, quit 41yo Physical Exam Vital Signs: Last Vital Signs Pulse 64 03/09/25 09:39 BP 150/62 H 03/09/25 09:39 Pulse Ox 92 03/09/25 09:39 Oxygen Delivery Method Room Air 03/09/25 09:39 BMI result Body Mass Index 27.4 Const General: comfortable; No acute distress Orientation/consciousness: patient oriented x3 Eyes General: appearance normal, both eyes and all related structures Visual Lundy: normal visual lundy by confrontation Neck Neck: Yes supple and Yes no JVD Resp Effort & Inspection: normal respiratory effort and respiratory effort not decreased Cardio Palpation: no palpable S3 and no palpable S4 Heart sounds: no rubs GI Inspection: Yes normal to inspection Palpation (GI): Soft to palpation Percussion: Yes normal to percussion Auscultation: normal bowel sounds General: Yes no CVA tenderness Back/Spine/Pelvis Back: no CVA tenderness Skin General skin exam: no petechiae and no purpura Neuro General: patient oriented x3 and no focal motor deficits Extrem General: No clubbing and No edema Results Reviewed Nephrology Results: Hgb, (12.0-16.0) 11.5 g/dl L 02/22/25 WBC, (4.8-10.8) 8.4 X10*3/uL 02/22/25 Plt Count, (160-400) 203 X10*3/uL 02/22/25 Sodium, (135-145) 136 mmol/L 02/22/25 Potassium, (3.3-5.1) 3.9 mmol/L 02/22/25 Chloride, (96-108) 101 mmol/L 02/22/25 Carbon Dioxide, (22-29) 26 mmol/L 02/22/25 BUN, (9-16) 21 mg/dL H 02/22/25 Creatinine, (0.5-1.4) 1.09 mg/dL 02/22/25 Calcium, (8.4-10.2) 9.4 mg/dL 02/22/25 Urine Protein, (Neg-Trace) Trace mg/dL 02/22/25 Urine Creatinine 105.89 mg/dL 02/22/25 Assessment & Plan Assessment & Plan (1) HTN (hypertension): Code(s): I10 - Essential (primary) hypertension Category: Medical (2) CKD (chronic kidney disease): Code(s): N18.9 - Chronic kidney disease, unspecified Category: Medical Plan Margaret is 84-year-old woman with a history of mild CKD in a setting of longstanding hypertension. 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 Overall renal function has been stable. Blood pressure is acceptable. I am not made any changes in her medications She should stay on low-sodium diet. Continue to avoid nephrotoxic agents including NSAIDs. We will continue screen for anemia and secondary hyperparathyroidism. - PTH was 21 All questions were answered Orders: Orders Basic Metabolic Panel 6 Months I10 - Essential (primary) hypertension, N18.9 - Chronic kidney disease, unspecified Coding Level of Care Code Est Pt Level 4 (31442) Diagnoses HTN (hypertension) I10 CKD (chronic kidney disease) N18.9
--- OUTSIDE RECORDS SUMMARY | 2025-03-09 10:53 | XMS_ITS | Clinical Summary ---
Author Organization [facility] Address [address] [facility] [address] [place] [address] Phone Care Team Providers Care Street Commissioner Name Role Phone Dedra Arzola MD Primary Care Provider [phone] Allergies Active Allergy Reactions Criticality Noted Date [...] Medicaid [place] Medicare Medicaid [place] Care Teams Street Commissioner Relationship Specialty Start Date End Date Dedra Arzola MD [address] [place] [address] PCP - General 05/13/20
--- OUTSIDE RECORDS SUMMARY | 2025-03-09 10:53 | XMS_ITS | Encounter Summary ---
Author Organization [employer] Address [address] [facility] 7t [place] [address] Care Team Providers Care Bull Fiddle Player Name Role Phone Dedra Arzola MD Primary Care Provider [phone] Karrie Robin MD Primary Care Provider [phone] Reason for Visit * Reason Comments Med Refill Encounter Details Date Type Department Care Team ([facility] st Contact Info) Description 07/21/2024 Refill [facility] CHC MED & PEDS [address] [place], [place] [phone] Dedra Arzola MD 505 [place] [address] Insomnia, unspecified type Social History Tobacco Use [...] Care Team (Late st Contact Info) Description 03/13/2025 8:45 AM EST Office Visit [facility] ADULT DENTAL 505 [place] [address] Daniel Mendoza 03/20/2025 10:45 AM EST Office Visit [facility] MED & PEDS 505 [place] [address] Michael Mendoza MD 505 [place] [address] 03/27/2025 11:30 AM EST Office Visit [facility] OPTOMETRY [address] [place], [place] [phone] Linnette Espinal, OD [address] [place], [place] [phone] documented as of this encounter Visit Diagnoses Diagnosis Insomnia, unspecified type documented in this encounter Additional Health Concerns Assessment Noted Time PHQ-9 Depression Total Score: 4 01/21/20 23 10:06 AM EDT documented as of this encounter Care Teams Bull Fiddle Player Relationship Specialty Start Date End Date Dedra Arzola MD [address] [place] [address] PCP - General Family Medicine 04/06/12 02/27/25 Karrie Robin MD [address] [place] [address] PCP - General Family Medicine 02/28/25 documented as of this encounter
--- OUTSIDE RECORDS SUMMARY | 2025-03-09 10:53 | XMS_ITS | Encounter Summary ---
Author Organization [employer] Address [address] [place] [address] 7t [place] [address] Care Team Providers Care Antenna Machine Operator Name Role Phone Dedra Arzola MD Primary Care Provider [phone] Karrie Robin MD Primary Care Provider [phone] Encounter Details Date Type Department Care Team (Late st Contact Info) Description 10/16/2022 Orders Only [facility] MED & PEDS [address] [place] [address] Kely Townsend LPN Social History Tobacco Use [...] Description 03/13/2025 8:45 AM EST Office Visit [facility] ADULT DENTAL [address] [place] [address] Daniel Mendoza 03/20/2025 10:45 AM EST Office Visit [facility] MED & PEDS [address] [place] [address] Michael Mendoza MD 505 [place] [address] 03/27/2025 11:30 AM EST Office Visit [facility] OPTOMETRY [address] [place] [address] Linnette Espinal, OD [address] [place] [address] documented as of this encounter Visit Diagnoses Not on filedocumented in this encounter Care Teams Antenna Machine Operator Relationship Specialty Start Date End Date Dedra Arzola MD [address] [place] [id number] PCP - General Family Medicine 04/06/12 02/27/25 Karrie Robin MD [address] [place] [address] PCP - General Family Medicine 02/28/25 documented as of this encounter
--- OUTSIDE RECORDS SUMMARY | 2025-03-09 10:53 | XMS_ITS | Encounter Summary ---
Author Organization [employer] Address [address] [facility] 7t [place] [address] Care Team Providers Care Rn Sane Name Role Phone Dedra Arzola MD Primary Care Provider [phone] Karrie Robin MD Primary Care Provider [phone] Encounter Details Date Type Department Care Team ([facility] st Contact Info) Description 09/09/2023 Orders Only [facility] CHC MED & PEDS [address] [place], [place] [phone] Dedra Arzola MD 505 [place] [address] Social History Tobacco Use Types Packs/Day Years [...] 8:45 AM EST Office Visit [facility] ADULT DENTAL 505 [place] [address] Daniel Mendoza 03/20/2025 10:45 AM EST Office Visit [facility] MED & PEDS [address] [place] [address] Michael Mendoza MD 505 [place] [address] 03/27/2025 11:30 AM EST Office Visit [facility] OPTOMETRY [address] [place] [address] Linnette Espinal, OD [address] [place] [address] documented as of this encounter Visit Diagnoses Not on filedocumented in this encounter Additional Health Concerns Assessment Noted Time PHQ-9 Depression Total Score: 4 01/21/20 23 10:06 AM EDT documented as of this encounter Care Teams Rn Sane Relationship Specialty Start Date End Date Dedra Arzola MD [address] [place] [address] PCP - General Family Medicine 04/06/12 02/27/25 Karrie Robin MD 505 [place] [address] PCP - General Family Medicine 02/28/25 documented as of this encounter
--- OUTSIDE RECORDS SUMMARY | 2025-03-09 10:53 | XMS_ITS | Encounter Summary ---
Author Organization [facility] Address [address] [place] [address] Phone Care Team Providers Care Clinical Support Associate Name Role Phone Dedra Arzola MD Primary Care Provider Encounter Details Date Type Department Care Team (Late st Contact Info) Description 09/10/2020 Orders Only [facility] [address] [place] [address] ProviderTony MD Social History Tobacco Use [...] on filedocumented in this encounter Care Teams Clinical Support Associate Relationship Specialty Start Date End Date Dedra Arzola MD [address] [place] [address], [place] [address] PCP - General 05/13/20 documented as of this encounter
--- OUTSIDE RECORDS SUMMARY | 2025-03-09 10:53 | XMS_ITS | Encounter Summary ---
Author Organization [employer] Address [address] [facility] 7t [place] [address] Care Team Providers Care Pt Sitter Name Role Phone Dedra Arzola MD Primary Care Provider [phone] Karrie Robin MD Primary Care Provider [phone] Reason for Visit * Reason Comments Med Refill Encounter Details Date Type Department Care Team ([facility] st Contact Info) Description 10/26/2024 Refill [facility] CHC MED & PEDS [address] [place], [place] [phone] Dedra Arzola MD 505 [place] [address] Major depressive disorder with current active episode, unspecified depression episode severity, unspecified whether recurrent Social History Tobacco Use Types Packs/Day Years [...] 8:45 AM EST Office Visit [facility] ADULT DENTAL 505 [place] [address] Daniel Mendoza 03/20/2025 10:45 AM EST Office Visit [facility] MED & PEDS 505 [place] [address] Michael Mendoza MD 505 [place] [address] 03/27/2025 11:30 AM EST Office Visit [facility] OPTOMETRY [address] [place], [place] [phone] Linnette Espinal OD [address] [place] [address] documented as of this encounter Visit Diagnoses Diagnosis Major depressive disorder with current active episode, unspecified depression episode severity, unspecified whether recurrent documented in this encounter Additional Health Concerns Assessment Noted Time PHQ-9 Depression Total Score: 4 01/21/20 23 10:06 AM EDT documented as of this encounter Care Teams Pt Sitter Relationship Specialty Start Date End Date Dedra Arzola MD [address] [place] [address] PCP - General Family Medicine 04/06/12 02/27/25 Karrie Robin MD [address] [place] [address] PCP - General Family Medicine 02/28/25 documented as of this encounter
--- OUTSIDE RECORDS SUMMARY | 2025-03-09 10:53 | XMS_ITS | Encounter Summary ---
Author Organization [employer] Address [address] [place] [address] [address], [place] [address] Care Team Providers Care Refrigerated Cargo Clerk Name Role Phone Dedra Arzola MD Primary Care Provider [phone] Karrie Robin MD Primary Care Provider [phone] Encounter Details Date Type Department Care Team (Latest Contact Info) Description 05/19/2019 Abstract [facility] CONVERSIONS Dental, Provider, DDS Social History [...] 8:45 AM EST Office Visit [facility] ADULT DENTAL [address] [place] [address] Daniel Mendoza 03/20/2025 10:45 AM EST Office Visit [facility] MED & PEDS [address] [place] [address] Michael Mendoza MD 505 [place] [address] 03/27/2025 11:30 AM EST Office Visit [facility] OPTOMETRY [address] [place] [address] Linnette Espinal, OD [address] [place] [address] documented as of this encounter Visit Diagnoses Not on filedocumented in this encounter Care Teams Refrigerated Cargo Clerk Relationship Specialty Start Date End Date Dedra Arzola MD [address] [place] [address] PCP - General Family Medicine 04/06/12 02/27/25 Karrie Robin MD [address] [place] [address] PCP - General Family Medicine 02/28/25 documented as of this encounter
--- OUTSIDE RECORDS SUMMARY | 2025-03-09 10:53 | XMS_ITS | Encounter Summary ---
Author Organization [employer] Address [address] [facility] 7t [place] [address] Care Team Providers Care Guardian Family Member Name Role Phone Dedra Arzola MD Primary Care Provider [phone] Karrie Robin MD Primary Care Provider [phone] Reason for Visit * Reason Onset Date Comments Med Refill 06/02/2023 Encounter Details Date Type Department Care Team ([facility] st Contact Info) Description 06/02/2023 Telephone [facility] MED & PEDS [address] [place], [place] [phone] Dedra Arzola MD 505 [place] [address] Med Refill Social History Tobacco Use Types [...] 5 MG tablet To be sent to: [facility] - [place], [place] - [address] [place] [address] documented in this encounter Plan of Treatment Upcoming Encounters Date Type Department Care Team ([facility] st Contact Info) Description 03/13/2025 8:45 AM EST Office Visit [facility] ADULT DENTAL [address] [place] [address] Daniel Mendoza 03/20/2025 10:45 AM EST Office Visit [facility] MED & PEDS [address] [place] [address] Michael Mendoza MD 505 [place] [address] 03/27/2025 11:30 AM EST Office Visit [facility] OPTOMETRY [address] [place] [address] Tarka, Linnette, OD [address] [place] [address] documented as of this encounter Visit Diagnoses Not on filedocumented in this encounter Additional Health Concerns Assessment Noted Time PHQ-9 Depression Total Score: 4 01/21/20 23 10:06 AM EDT documented as of this encounter Care Teams Guardian Family Member Relationship Specialty Start Date End Date Dedra Arzola MD [address] [place] [address] PCP - General Family Medicine 04/06/12 02/27/25 Karrie Robin MD [address] [place] [address] PCP - General Family Medicine 02/28/25 documented as of this encounter
--- OUTSIDE RECORDS SUMMARY | 2025-03-09 10:53 | XMS_ITS | Encounter Summary ---
Author Organization [employer] Address [address] [facility] 7t [place] [address] Care Team Providers Care Construction Field Engineer Name Role Phone Dedra Arzola MD Primary Care Provider [phone] Karrie Robin MD Primary Care Provider [phone] Reason for Visit * Reason Comments Med Refill Encounter Details Date Type Department Care Team ([facility] st Contact Info) Description 07/21/2024 Refill [facility] MED & PEDS [address] [place], [place] [phone] Dedra Arzola MD 505 [place] [address] Insomnia, unspecified type Social History Tobacco Use [...] 8:45 AM EST Office Visit [facility] ADULT DENTAL [address] [place] [address] Daniel Mendoza 03/20/2025 10:45 AM EST Office Visit [facility] MED & PEDS [address] [place] [address] Michael Mendoza MD 505 [place] [address] 03/27/2025 11:30 AM EST Office Visit [facility] OPTOMETRY [address] [place], [place] [phone] Linnette Espinal, OD [address] [place], [place] [phone] documented as of this encounter Visit Diagnoses Diagnosis Insomnia, unspecified type documented in this encounter Additional Health Concerns Assessment Noted Time PHQ-9 Depression Total Score: 4 01/21/20 23 10:06 AM EDT documented as of this encounter Care Teams Construction Field Engineer Relationship Specialty Start Date End Date Dedra Arzola MD [address] [place] [address] PCP - General Family Medicine 04/06/12 02/27/25 Karrie Robin MD [address] [place] [address] PCP - General Family Medicine 02/28/25 documented as of this encounter
--- OUTSIDE RECORDS SUMMARY | 2025-03-09 10:53 | XMS_ITS | Patient Health Record ---
Author Organization [facility] Address [address] [facility] [facility] [place] [phone] Care Team Providers Care Automation Controls Expert Name Role Phone Andre Contreras [phone] Reason For Referral No Information Plan Of Treatment No Information
--- OUTSIDE RECORDS SUMMARY | 2025-03-09 10:53 | XMS_ITS | Encounter Summary ---
Author Organization [employer] Address [address] [facility] 7t [place] [address] Care Team Providers Care Facer Operator Name Role Phone Dedra Arzola MD Primary Care Provider [phone] Karrie Robin MD Primary Care Provider [phone] Encounter Details Date Type Department Care Team (Late st Contact Info) Description 11/12/2022 Orders Only [facility] MEDICINE [address] [place], [place] [phone] Tricia Shoemaker LPN Social History Tobacco Use [...] Description 03/13/2025 8:45 AM EST Office Visit [facility] ADULT DENTAL 505 [place] [address] Daniel Mendoza 03/20/2025 10:45 AM EST Office Visit [facility] MED & PEDS [address] [place], [place] [phone] Michael Mendoza MD 505 [place] [address] 03/27/2025 11:30 AM EST Office Visit [facility] OPTOMETRY [address] [place], [place] [phone] Linnette Espinal, OD [address] [place], [place] [phone] documented as of this encounter Visit Diagnoses Not on filedocumented in this encounter Care Teams Facer Operator Relationship Specialty Start Date End Date Dedra Arzola MD [address] [place] [address] PCP - General Family Medicine 04/06/12 02/27/25 Karrie Robin MD [address] [place] [address] PCP - General Family Medicine 02/28/25 documented as of this encounter
--- OUTSIDE RECORDS SUMMARY | 2025-03-09 10:53 | XMS_ITS | Encounter Summary ---
Author Organization [employer] Address [address] [place] [address] [address], [place] [address] Care Team Providers Care Osteopathic Resident Name Role Phone Dedra Arzola MD Primary Care Provider [phone] Karrie Robin MD Primary Care Provider [phone] Encounter Details Date Type Department Care Team (Latest Contact Info) Description 05/13/2018 Abstract [facility] CONVERSIONS Dental, Provider, DDS Social History [...] Description 03/13/2025 8:45 AM EST Office Visit [facility] ADULT DENTAL 505 [place] [address] Daniel Mendoza 03/20/2025 10:45 AM EST Office Visit [facility] MED & PEDS [address] [place] [address] Michael Mendoza MD 505 [place] [address] 03/27/2025 11:30 AM EST Office Visit [facility] OPTOMETRY [address] [place] [address] Linnette Espinal, OD 267 [place] [address] documented as of this encounter Visit Diagnoses Not on filedocumented in this encounter Care Teams Osteopathic Resident Relationship Specialty Start Date End Date Dedra Arzola MD [address] [place] [address] PCP - General Family Medicine 04/06/12 02/27/25 Karrie Robin MD [address] [place] [address] PCP - General Family Medicine 02/28/25 documented as of this encounter
--- OUTSIDE RECORDS SUMMARY | 2025-03-09 10:53 | XMS_ITS | Encounter Summary ---
Author Organization [employer] Address [address] [place] [address], [place] [address] Care Team Providers Care Predictive Maintenance Technician Name Role Phone Dedra Arzola MD Primary Care Provider [phone] Karrie Robin MD Primary Care Provider [phone] Encounter Details Date Type Department Care Team (Latest Contact Info) Description 09/12/2021 Abstract [facility] CONVERSIONS Dental, Provider, DDS Social History [...] Description 03/13/2025 8:45 AM EST Office Visit [facility] ADULT DENTAL 505 [place] [address] Daniel Mendoza 03/20/2025 10:45 AM EST Office Visit [facility] MED & PEDS 505 [place] [address] Michael Mendoza MD 505 [place] [address] 03/27/2025 11:30 AM EST Office Visit [facility] OPTOMETRY 267 [place] [address] Linnette Espinal, OD [address] [place] [address] documented as of this encounter Visit Diagnoses Not on filedocumented in this encounter Care Teams Predictive Maintenance Technician Relationship Specialty Start Date End Date Dedra Arzola MD [address] [place] [address] PCP - General Family Medicine 04/06/12 02/27/25 Karrie Robin MD [address] [place] [address] PCP - General Family Medicine 02/28/25 documented as of this encounter
--- OUTSIDE RECORDS SUMMARY | 2025-03-09 10:53 | XMS_ITS | Encounter Summary ---
Author Organization [employer] Address [address] [facility] 7 [place] [address] Care Team Providers Care Sheltered Workshop Executive Director Name Role Phone Dedra Arzola MD Primary Care Provider [phone] Karrie Robin MD Primary Care Provider [phone] Reason for Visit * Reason Comments Med Refill Encounter Details Date Type Department Care Team (Late Contact Info) Description 01/09/2023 Refill [facility] MED & PEDS 505 [place] [address] Hernando Patel MD 505 [place] [address] Primary hypertension Social History Tobacco Use Types [...] Department Care Team (Late Contact Info) Description 03/13/2025 8:45 AM EST Office Visit [facility] ADULT DENTAL [address] [place] [address] Daniel Mendoza 03/20/2025 10:45 AM EST Office Visit [facility] MED & PEDS 505 [place] [address] Michael Mendoza MD 505 [place] [address] 03/27/2025 11:30 AM EST Office Visit [facility] OPTOMETRY 267 [place] [address] Linnette Espinal, OD 267 [place] [address] documented as of this encounter Visit Diagnoses Diagnosis Primary hypertension Unspecified essential hypertension documented in this encounter Care Teams Sheltered Workshop Executive Director Relationship Specialty Start Date End Date Dedra Arzola MD [address] [place] [address] PCP - General Family Medicine 04/06/12 02/27/25 Karrie Robin MD 505 [place] [address] PCP - General Family Medicine 02/28/25 documented as of this encounter
--- OUTSIDE RECORDS SUMMARY | 2025-03-09 10:53 | XMS_ITS | Encounter Summary ---
Author Organization [employer] Address [address] [facility] 7t [place] [address] Care Team Providers Care Electric Motor And Generator Assembler Name Role Phone Dedra Arzola MD Primary Care Provider [phone] Karrie Robin MD Primary Care Provider [phone] Encounter Details Date Type Department Care Team ([facility] st Contact Info) Description 02/12/2023 Orders Only [facility] CHC MED & PEDS [address] [place], [place] [phone] Dedra Arzola MD 505 [place] [address] Social History Tobacco Use Types Packs/Day Years [...] Description 03/13/2025 8:45 AM EST Office Visit [facility] ADULT DENTAL 505 [place] [address] Daniel Mendoza 03/20/2025 10:45 AM EST Office Visit [facility] MED & PEDS 505 [place] [address] Michael Mendoza MD 505 [place] [address] 03/27/2025 11:30 AM EST Office Visit [facility] OPTOMETRY 267 [place] [address] Linnette Espinal, OD 267 [place] [address] documented as of this encounter Visit Diagnoses Not on filedocumented in this encounter Additional Health Concerns Assessment Noted Time PHQ-9 Depression Total Score: 4 01/21/20 23 10:06 AM EDT documented as of this encounter Care Teams Electric Motor And Generator Assembler Relationship Specialty Start Date End Date Dedra Arzola MD 230 [place] [address] PCP - General Family Medicine 04/06/12 02/27/25 Karrie Robin MD 505 [place] [address] PCP - General Family Medicine 02/28/25 documented as of this encounter
--- OUTSIDE RECORDS SUMMARY | 2025-03-09 10:54 | XMS_ITS | Clinical Summary ---
Author Organization [employer] Address [address] [facility] 7t [place] [address] Care Team Providers Care Coper Hand Name Role Phone Karrie Robin MD Primary Care Provider [phone] Allergies Active Allergy Reactions Criticality Noted Date [...] topically every 12 (twelve) hours. 2020 Active Nhatnww-Ssnjzpflos-Qqq dias D (Citracal +D3) 250-107-500 MG-MG-UNIT chewable [...] 33G miscIndications:Type 2 diabetes mellitus without complications (HCC) USE ONE EVERY DAY 100 each 11 2023 Active FREESTYLE LITE test stripIndications:Type 2 diabetes mellitus without complications (HCC) USE ONE TO TEST BLOOD SUGAR EVERY DAY 50 strip 11 2023 Active cetirizine (ZyrTEC) 10 MG tabletIndications:Lion rgy, anatoliyela TAKE ONE TABLET EVERY NIGHT AT BEDTIME 30 tablet 11 2024 Active triamcinolone (Kenalog) 0.1 % cream Apply topically if needed in the morning and at bedtime (pain and swelling). 30 g 2 2024 Active fluticasone (Flonase) 50 MCG/ACT nasal sprayIndications:Aller gy, unspecified, sequela SPRAY 2 SPRAYS IN EACH NOSTRIL ONCE DAILY IN THE MORNING 16 g 2024 Active hydroCHLOROthiazide (HYDRODiuril) 25 MG tablet TAKE ONE TABLET EVERY MORNING 90 tablet 1 2024 Active betamethasone valerate (Valisone) 0.1 % cream Apply topically if needed in the morning and at bedtime (dryness). 45 g 2 2024 Active hydrOXYzine pamoate (Vistaril) 25 MG capsuleIndications:Sca lp itch Take 1 capsule (25 mg) by mouth every 6 (six) hours if needed for itching for up to 10 days. 30 capsule 3 2024 Active amLODIPine (Norvasc) 10 MG tabletIndications:Prim miguel hypertension TAKE ONE TABLET EVERY MORNING 90 tablet 1 2024 Active Vascepa 1 g capsuleIndications:Mario or depressive disorder with current active episode, unspecified depression episode severity, unspecified whether recurrent TAKE TWO CAPSULES TWICE DAILY IN THE MORNING AND EVENING WITH FOOD 360 capsule 2024 Active sertraline (Zoloft) 100 MG tablet TAKE ONE TABLET EVERY MORNING 30 tablet 5 2024 Active rosuvastatin (Crestor) 10 MG tabletIndications:Pure hypercholesterolemia TAKE ONE TABLET EVERY NIGHT AT BEDTIME 30 tablet 5 2024 Active levothyroxine (Synthroid, Levoxyl) 50 MCG tabletIndications:Hypo thyroidism, unspecified type TAKE ONE TABLET EVERY MORNING 30 tablet 5 2024 Active Fluocinolone Acetonide Scalp (Blyn-Smoothe/FS Scalp) 0.01 % oilIndications:Scalp pruritus To use on the scalp 2 times a week overnight. Wash the hair in the morning. 118 mL 1 2024 Active zolpidem (Ambien) 5 MG tabletIndications:Inso mnia, unspecified type TAKE ONE TABLET EVERY NIGHT AT BEDTIME NEEDED FOR SLEEP 30 tablet 2024 Active Aspirin Low Dose 81 MG chewable tablet CHEW ONE TABLET EVERY MORNING 90 tablet 1 2024 Active Aspirin Low Dose 81 MG chewable tablet CHEW ONE TABLET EVERY MORNING 90 tablet 1 02/16 Discontinued zolpidem (Ambien) 5 MG tabletIndications:Inso mnia, unspecified type TAKE ONE TABLET EVERY NIGHT AT BEDTIME NEEDED FOR SLEEP 30 tablet 02/13 Discontinued Active Problems Problem Noted Date Diagnosed Date Type 2 diabetes mellitus wit hout complication, without long-term current use of insulin 08/05/2022 Stage 3 chronic kidney disease (CMS/HCC) 021 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 Hypothyroidism 11/10/2012 Benign essential hypertension 07/27/2011 Pure hypercholesterolemia 07/27/2011 Gastroesophageal reflux disease 07/27/2011 Encounters Date Type Department Care Team Description 02/16/2025 Refill [facility] MED & PEDS [address] [place] [address] Dedra Arzola MD 02/13/2025 Telephone [facility] MED & PEDS [address] [place] [address] Dedra Arzola MD Med Refill 02/12/2025 Refill [facility] MED & PEDS [address] [place] [address] Dedra Arzola MD Insomnia, unspecified type 02/06/2025 11:15 AM EDT Office Visit [facility] MED & PEDS [address] [place] [address] Michael Mendoza MD Scalp pruritus (Primary Dx) 02/06/2025 Travel 01/17/2025 Refill [facility] MED & PEDS [address] [place] [address] Dedra Arzola MD Major depressive disorder with current active episode, unspecified depression episode severity, unspecified whether recurrent; Pure hypercholesterolemia; Hypothyroidism, unspecified type 01/16/2025 9:15 AM EDT Telemedicine [facility]C MED & PEDS [address] [place] [address] Dedra Arzola MD Type 2 diabetes mellitus without complication, without long-term current use of insulin ([facility]) (Primary Dx); Benign essential hypertension; Dry mouth; Rash 01/16/2025 Travel 01/15/2025 Telephone [facility] CHC MED & PEDS [address] [place] [address] Dedra Arzola MD Chart Prep 01/15/2025 Refill [facility] CHC MED & PEDS [address] [place] [address] Dedra Arzola MD Insomnia, unspecified type 01/02/2025 Telephone [facility] MED & PEDS [address] [place] [address] Dedra Arzola MD 01/02/2025 Telephone [facility] MEDICINE [address] [place] [address] Dedra Arzola MD No Show 01/02/2025 Travel 12/29/2024 Telephone [facility] CHC MED & PEDS [address] [place] [address] Dedra Arzola MD CHART PREP 12/20/2024 Refill [facility] MED & PEDS [address] [place] [address] Dedra Arzola MD Primary hypertension 12/15/2024 Telephone [facility] MED & PEDS [address] [place] [address] Dedra Arzola MD Med Refill 12/14/2024 Refill [facility] MED & PEDS [address] [place] [address] Dedra Arzola MD Insomnia, unspecified type from Last 3 Months Immunizations Immunization Administration Dates Next Due Influenza High-dose Quadriva lent Preservative Free 01/20/2023,02/23/2022,01/16/2021,01/31 Influenza injectable quadriv alent IIV4 with preservative 04/05/2019,03/10/2018,01/27/2017,03/17,01/28/2015 Influenza, High Dose Seasona l, Preservative Free 01/29/2025,03/13/2024,01/02/2016 Influenza, IIV3, injectable 01/12/2014 Influenza, Split (incl. kyle fied surface antigen) 02/21/2013,01/22/2012 Pfizer Covid-19 Vaccine 12+ Bivalent 04/16/2022 Pneumococcal Conjugate PCV 13 03/17/2016 Pneumococcal Polysaccharide PPSV23 03/10/2018, RSV Bivalent 01/29/2025 Tdap 06/18/2015 Zoster, Recombinant 11/25/2021,09/16/2021 Zoster, live [...] Sign Reading Time Taken Comments Blood Pressure 160/79 02/06/2025 10:48 AM EDT Pulse 71 02/06/2025 10:48 AM EDT Temperature 36.4 C (97.6 F) 11/10/2024 9:39 AM EDT Respiratory Rate 20 02/06/2025 10:48 AM EDT Oxygen Saturation 97% 02/06/2025 10:48 AM EDT Inhaled Oxygen Concentration - - Weight 68.5 kg (151 lb) 02/06/2025 10:48 AM EDT Height 156.2 cm (5' 1.5 ) 02/06/2025 10:48 AM ED T Body Mass Index 28.07 02/06/2025 10:48 AM EDT Plan of Treatment Upcoming Encounters Date Type Department Care Team (Late st Contact Info) Description 03/13/2025 8:45 AM EST Office Visit [facility] ADULT DENTAL [address] [place] [address] Daniel Mendoza 03/20/2025 10:45 AM EST Office Visit [facility] MED & PEDS [address] [place] [address] Michael Mendoza MD 505 [place] [address] 03/27/2025 11:30 AM EST Office Visit [facility] OPTOMETRY [address] [place] [address] Linnette Espinal, OD [address] [place] [address] Health Maintenance Due Date Last Done Comments Dental X-Ray: Full Mouth 1940 Dental Oral Exam 09/16/2023 03/17/2023 Dental Prophylaxis 09/16/2023 03/17/2023, 07/20/2022 Depression Screening 01/21/2024 01/20/2023, 01/21/20 Dental X-Ray: Bitewings 03/18/2024 03/17/2023 Diabetes: Urine Protein Screening 09/27/2024 09/28/2023, 08/05/2022, 02/14/2021 COVID-19 Vaccine ( season) 2025 04/16/2022, 09/09/2021, 01/29/2021, Additional history exists Alcohol/Substance Use Screening 03/13/2025 03/13/2024 SDOH Screening 03/13/2025 03/13/2024 Diabetes: Hemoglobin A1C 03/15/2025 025, 09/11/2024, 03/13/2024, Additional history exists DTaP/Tdap/Td Vaccines (2 - Td or Tdap) 06/18/2025 06/18/2015 Mammogram 06/23/2025 06/23/2024, 06/03, 06/12/2022, Additional history exists Diabetes: Foot Exam 09/11/2025 09/11/2024, 09/11/2024, 09/11/2024, Additional history exists Lipid Panel 09/12/2025 09/12/2024, 03/03, 09/28/2023, Additional history exists Tobacco Screening 02/06/2026 02/06/2025 Eye Exam 05/26/2026 05/26/2024, 05/04, 05/26/2024, Additional history exists Pneumococcal Vaccine: 50+ Years Completed 03/10/2018, 03/17/2016, 10/04/2013 Zoster Vaccines Completed 11/25/2021, 08/31, 08/05/2016 Influenza Vaccine Completed 01/29/2025, , 01/20/2023, Additional history exists RSV Patients and Patients Aged 60 years or older Completed 01/29/2025 HIB Vaccines Aged Out No longer eligi [...] patient's age to complete this topic Meningococcal B Vaccine Aged Out No l onger eligible based on patient's age to complete [...] Procedure Name Priority Date/Time Associated Diagnosis Comments HEMOGLOBIN A1C Routine 09/12/2024 8:23 AM EDT Type 2 diabetes mellitus without complication, without long-term current use of insulin ([facility]) LIPID PANEL, STANDARD Routine 09/12/2024 8:23 AM EDT Type 2 diabetes mellitus without complication, without long-term current use of insulin ([facility]) Pure hypercholesterolemia BI MAMMOGRAM SCREENING TOMOSYNTHESIS BILATERAL Routine 06/23/2024 11:35 AM EST CREATININE, RANDOM URINE Routine 09/28/2023 10:00 AM EDT PROPHYLAXIS - ADULT Routine 03/17/2023 9 :00 AM EST BITEWINGS - 4 RADIOGRAPHIC IMAGES Routine 03/17/2023 9:00 AM EST PERIODIC ORAL EVALUATION - ESTABLISHED PATIENT Routine 03/17/2023 9:00 AM EST from Last 3 Months or Most Recently Relevant to Health Maintenance Results * Hemoglobin A1c (09/12/2024 8:23 AM EDT) Hemoglobin A1c 5.6 <6.0 % [facility] Comment:Hemoglobin A1C Refer ence Range Adults: 4.8 - 6.0 % Non diabetic: < 6.0 % Goal: < 7.0 %Additional Action Suggested: > 8.0 %Note: Hemoglobin A1c results are invalid for patients with abnormal amounts of HbF. Blood transfusions may impact the HbA1c concentration in the patient sample. Estimated Average Glucose 114 mg/dL [facility] Comment:eAG = Estimated ave rage glucose which is %A1C expressed asaverage glucose, using the formula of the A6Q-PwjegxrVyvourw Glucose study (ADAG), Diabetes Care, Vol.31,#8,2007 Blood Venous blood specimen / Unknown 09/12/2024 8:23 AM EDT 09/12/2024 2:07 PM EDT Dedra Arzola MD LAB BLOOD ORDERABLES Final Resul t Performing Organization Address [facility] Co de Phone Number [facility] [address] [place] [phone] * (ABNORMAL) Lipid Panel, Standard (09/12/2024 8:23 AM EDT) Triglycerides 172(H) <150 mg/dL [facility] Comment:Desirable Triglyceri de: less than 150 mg/dLBorderline High Triglyceride 150-199 mg/dLHigh Triglyceride: 200-499 mg/dLVery High Triglyceride: greater than or equal to 5OO mg/dL Cholesterol 161 <200 mg/dL [facility] Comment:Desirable Cholestero l: less than 200 mg/dLBorderline High Cholesterol: 200-239 mg/dLHigh Cholesterol: greater than 239 mg/dL LDL Cholesterol Calculated 90 <100 mg/dL [facility] Comment:Desirable LDL: less than 100 mg/dLNear Optimal/Above Optimal LDL: 110- 129 mg/dLBorderline High LDL: 130-159 mg/dLHigh LDL: 160-189 mg/dLVery High LDL: greater than or equal to 190 mg/dL HDL Cholesterol 37(L) >40 mg/dL [facility] Comment:Desirable HDL: great er than 40 mg/dL Note: This HDL assay may give artificially low results in patients with liver disease. Blood Venous blood specimen / Unknown 09/12/2024 8:23 AM EDT 09/12/2024 2:07 PM EDT us Dedra Arzola MD LAB BLOOD ORDERABLES Final Resul t Performing Organization Address [facility]/ZIP Co de Phone Number [facility] [address] [place] [phone] * BI Mammogram Screening Tomosynthesis Bilateral (06/23/2024 11:35 AM EST) Anatomical Region Laterality Modality Breast Bilateral Mammography 06/23/2024 11:3 5 AM EST Narrative 07/01/2024 10:15 AM EST [facility] [address] [place] [address] Mammography Report Signed Patient: Margaret Wright MR#: [id number] 54 : 1940 Acct:[id number] Age/Sex: 83 / F ADM Date: 06/23/24 Loc: HO.MAMMO Attending Dr: Dedra Arzola MD Ordering Physician: Dedra Arzola MD Results: 1Negati ve Date of Service: 06/23/24 Follow Up: 1 Year From Orig ina Mammogram Procedure(s): MM tomosynthesis screening BI Accession Number(s): [id number] cc: Dedra Arzola MD EXAMINATION: MM SCREENING [...] 07/01/24 1011 DD/ 1135 TD/TT: 06/23/24 1152 Hotel Manager: Procedure Note Donotuseinterpreter, Image - 07/01/2024 [facility] [address] [place], [place] [address] Mammography Report Signed Patient: Margaret Wright TMR#: [id number] [birth year] : 3Acct:[id number] Age/Sex: 83 / FADM Date: 06/23/24 Loc: HO.MAMMO Attending Dr: Dedra Arzola MD Ordering Physician: Dedra Arzola MDResults: 1Negati ve Date of Service: 06/23/24Follow Up: 1 Year From Orig inal Mammogram Procedure(s): MM tomosynthesis screening BI Accession Number(s): [id number] cc: Dedra Arzola MD EXAMINATION: MM SCREENING [...] 07/01/24 1011 DD/ 1135 TD/TT: 06/23/24 1152 Hotel Manager: Dedra Arzola MD IMG BI PROCEDURES Edited Result - Final * Creatinine, Random Urine (09/28/2023 10:00 AM EDT) Creatinine, Urine 54.46 mg/dL [facility] 09/28/2023 10:0 0 AM EDT 09/28/2023 2:44 PM EDT us Generic External Data Provider LAB URINE ORDERAB LES Final Result [facility] [address] [place] [address] [phone] from Last 3 Months or Most Recently Relevant to Health Maintenance Insurance [facility] STANDARD N PARTIAL MEDICARE DENTAL - HSN FULL (MEDICAID) Care Teams Coper Hand Relationship Specialty Start Date End Date Karrie Robin MD [address] [place], [place] [address] [address] PCP - General Family Medicine 02/28/25
--- OUTSIDE RECORDS SUMMARY | 2025-03-09 10:54 | XMS_ITS | Encounter Summary ---
Author Organization [employer] Address [address] [facility] [address] [place] [address] Care Team Providers Care Rn Picu Name Role Phone Dedra Arzola MD Primary Care Provider [phone] Karrie Robin MD Primary Care Provider [phone] Encounter Details Date Type Department Care Team (Late st Contact Info) Description 08/06/2022 Orders Only [facility] MED & PEDS [address] [place] [address] Dedra Arzola MD [address] [place] [address] Social History Tobacco Use Types Packs/Day Years [...] [facility] [address] [place] [address] Daniel Dailey 03/20/2025 10:45 AM EST Office Visit [facility]ED[facility] [address] [place], [place] [phone] Michael Mendoza MD [address] [place] [address] 03/27/2025 11:30 AM EST Office Visit [facility] OPTOMETRY [address] [place], [place] [phone] Linnette Espinal, OD [address] [place] [address] documented as of this encounter Visit Diagnoses Not on filedocumented in this encounter Care Teams Rn Picu Relationship Specialty Start Date End Date Dedra Arzola MD [address] [place] [id number] PCP - General Family Medicine 04/06/12 02/27/25 Karrie Robin MD [address] [place] [address] PCP - General Family Medicine 02/28/25 documented as of this encounter
== END 2025-03-09 09:54 | disposition home or self-care (01) ==
LOC: HO.HKA 09:32
PROVIDERS: PCP Student in an Organized Health Care Education/Training Program; Visit Provider Internal Medicine Hypertension Specialist
DX: I12.9 Hypertensive chronic kidney disease with stage 1 through stage 4 chronic kidney disease, or unspecified chronic kidney disease (principal); N18.9 Chronic kidney disease, unspecified
CPT/HCPCS: 99214

== ENCOUNTER → 2025-03-09 09:32 | Outpatient (BNVA) | payer MEDICARE, MEDICAID, SELFPAY | PROVIDERS: PCP Student in an Organized Health Care Education/Training Program; Visit Provider Internal Medicine Hypertension Specialist | DX: I10 Essential (primary) hypertension (principal); N18.9 Chronic kidney disease, unspecified | CPT/HCPCS: 99212 ==

== ENCOUNTER 2025-04-09 09:54 | Outpatient (AMB) | payer MEDICARE, MEDICAID, SELFPAY ==
--- NOTE | 2025-04-09 09:58 | MHC.OFFVIS ---
Vital Signs 04/09/25 09:59 Height 5 ft 2 in Weight 151 lb 0.266 oz BMI 27.6 BP 142/62 H Blood Pressure Location Lt brachial Position Sitting Pulse 75 Pulse Source Pulse Oximeter Pulse Oximetry (%) 97 Oxygen Delivery Method Room Air Intake Visit Reasons: COPD Intake Note: pt is here for follow up and feels good, but she has dry mouth so bad she has a very hard time, her lips almost go numb at night. Car Record Clerk Required: No Associate Professor Of Library Science: Associate Professor Of Library Science offered & declined Allergies Penicillins (PENICILLINS) Allergy (Intermediate, Verified 04/09/25 10:12) RASH Medication List - Last Reconciled 04/09/25 by David Reyes MD amlodipine 10 mg PO QAM aspirin 1 tab PO QAM blood sugar diagnostic As directed calcium citrate-vitamin D3 125-62.5 mg-unit tabs PO cetirizine 10 mg PO BEDTIME fluticasone propionate 50 mcg/actuation intranasal hydrochlorothiazide 25 mg PO DAILY icosapent ethyl (Vascepa) 2 grams PO BID icosapent ethyl (Vascepa) 2 grams PO BID lactobacillus combination no.9 (Adult 50 Plus Probiotic) 4,000 mmu cells PO DAILY lancets As directed levothyroxine 50 mcg PO DAILY montelukast 10 mg PO QPM 90 days rosuvastatin 10 mg PO BEDTIME sertraline 100 mg PO DAILY vitamins A,C,L-ibcg-orcwnq 4,296 mcg-226 mg-90 mg (PreserVision AREDS) 1 cap PO BID zolpidem 5 mg PO BEDTIME Do you need a note to return to daycare/school/sports/work: No HPI HPI COPD: Details: This is a very pleasant 84 years old female who has been followed up for many years mainly for allergic rhinitis. She remains on montelukast 10 mg daily and uses Flonase as well as cetirizine only as needed. Still has intermittent nasal congestion with postnasal drip, has mild cough, no wheezing or shortness of breath. She has history of mild intermittent asthma in the past which does not bother her any more. I think montelukast is helping to prevent any possible asthma attacks. PFSH Medical History Cough Asthma Allergic rhinitis Surgical History Hx of colonoscopy Family History Daughter Colon cancer Social History Patient Tobacco Use Status: Former Tobacco user Years Smoked: 25 years, quit 41yo Review of Systems Const All systems reviewed & are unremarkable except as noted in HPI and below Eyes Reports no additional complaints ENT Reports nasal congestion and Reports nasal discharge (Much less than before) Card Denies chest pain, Denies irregular heart rhythm and Denies leg edema Resp Reports cough (Only mild and intermittent, ) and Denies wheezing GI Reports no additional complaints and Reports heartburn ( CONTROLLED WITH MED) Reports no additional complaints Musc Reports no additional complaints Skin/Breast Reports system reviewed and no additional complaints, except as documented Neuro Reports no additional complaints Psych Reports depression (CONTROLLED WITH MED) Aller/Immun Denies wheezing Physical Exam Vital Signs: Last Vital Signs Pulse 75 04/09/25 09:59 BP 142/62 H 04/09/25 09:59 Pulse Ox 97 04/09/25 09:59 Oxygen Delivery Method Room Air 04/09/25 09:59 BMI result Body Mass Index 27.6 Const General: comfortable, no acute distress, alert and awake Orientation/consciousness: patient oriented x3 HEENT Head: Yes normal to inspection General nose exam: No nasal polyps present and No nasal discharge present Face and sinus: Yes sinuses nontender Mouth: oropharynx normal Throat: Yes posterior oropharynx normal Eyes General: appearance normal, both eyes and all related structures Neck Neck: Yes normal visual inspection, Yes no lymphadenopathy, Yes trachea midline and Yes no JVD Thyroid: Thyroid normal Chest Chest palpation & inspection: normal inspection of the chest, normal palpation of entire chest wall and no tenderness Resp Other: PERCUSSION NOTE IS RESONANT. BREATH SOUNDS ARE EQUAL ON BOTH SIDES . NO WHEEZES OR RHONCHI ARE HEARD. Cardio Palpation: normal PMI Rate: regular rate Rhythm: regular rhythm Heart sounds: no gallops and no murmurs GI Palpation (GI): Soft to palpation, nontender, No hepatosplenomegaly present and no masses Auscultation: normal bowel sounds Back/Spine/Pelvis Thoracic/Lumbar Spine: thoracic and lumbar spine normal to inspection Skin General skin exam: no rashes or lesions noted Neuro General: patient oriented x3 and no focal motor deficits Cranial nerves: Yes CN's II-XII intact bilaterally Extrem General: Yes normal to inspection, Yes no clubbing, cyanosis or edema and Yes no calf tenderness Psych Appearance: grossly normal Speech and movement: Normal speech and movement present Office Procedures Spirometry Testing Spirometry Comments: In office spirometry completed with results given to Dr Reyes. 01400- Spirometry Results Reviewed Results Reviewed: SPIROMETRY FVC=68 % FEV1= 71 % FEV1/FVC= 80 FEF 25-75 = 73 % C/W MILD RESTRICTIVE3 LUNG DISEASE . Assessment & Plan Assessment & Plan (1) Allergic rhinitis: Comment: CHRONIC COUGH , MAINLY SEC TO ALL RHINITIS , WELL CONTROLLED AT THIS TIME. Code(s): J30.9 - Allergic rhinitis, unspecified Category: Medical Plan: CONTINUE MONTELUKAST 10 MG DAILY USE FLONASE-51 OR 2 SPRAYS IN EACH NOSTRIL ONCE A DAY BUT ONLY P.R.N.. MAY TAKE CETIRIZINE 10 MG ONCE A DAY PRN. (2) Asthma: Comment: Cough is an ASTHMA VARIANT , AND HAS REMAINED WELL CONTROLLED. SHE HAS NOT REQUIRED TO USE THE INHALER MUCH. Code(s): J45.909 - Unspecified asthma, uncomplicated Category: Medical Plan: TREATMENT UNDER ALLERGIC RHINITIS, AND ALSO KEEP ALBUTEROL ON HAND TO USE 2 PUFFS Q 6 HOURS P.R.N. Orders: Orders AMB Spirometry Testing Today J45.909 - Unspecified asthma, uncomplicated Coding Level of Care Code Est Pt Level 3 (95062) Diagnoses Allergic rhinitis J30.9 Asthma J45.909 CPT Codes Spirometry - CPT: 65836- Spirometry ([id number])
[2025-04-09 09:59] VITALS: BP 142/62; PULSE 75; O2SAT 97; BMI 27.6
== END 2025-04-09 10:31 | disposition home or self-care (01) ==
LOC: HO.HPS 09:54
PROVIDERS: PCP Student in an Organized Health Care Education/Training Program; Visit Provider Internal Medicine
DX: J30.9 Allergic rhinitis, unspecified (principal); J45.909 Unspecified asthma, uncomplicated
CPT/HCPCS: 94010; 99213

== ENCOUNTER → 2025-04-09 09:54 | Outpatient (BNVA) | payer MEDICARE, MEDICAID, SELFPAY | PROVIDERS: PCP Student in an Organized Health Care Education/Training Program; Visit Provider Internal Medicine | DX: J30.9 Allergic rhinitis, unspecified (principal) | CPT/HCPCS: 94010; 99212 ==